=== PATIENT | female | born 1945 | race Caucasian/White ===

== ENCOUNTER 2017-04-09 15:04 | Inpatient (IN) | payer MEDICARE ==
[~2017-04-09] VITALS: Ht 170.2 cm; Wt 82.5 kg
[2017-04-09] VITALS (12 sets, daily range): BP systolic 128–168; BP diastolic 76–95; PULSE 56–72; RESP 16–18; TEMP 97.6–98.2; O2SAT 95–100
[~2017-04-09 15:04] MED LIST: ASPI81TA82 PO; ATOR10TA PO; CARB25TA PO; CARV6.252 PO; CHOL50006 PO; COEN400C PO; CYMB60CA PO; FOSA70TA PO; HYDR-3580 PO; POLY119S PO; RIVA10 PO; SYNT25TA PO; TAB-TAB PO; Z.0.COMMODE-3:1; Z.0.WALKERFRONT
[2017-04-09] MEDS ORDERED: SODIUM CHLORIDE 0.9% FLUSH 10 ML FLUSH IVF PRN (15:30)
--- NOTE | 2017-04-09 15:34 | PD ---
HPI Chief Complaint: Chest Pain Time Seen by Provider: 15:12 Travel History International Travel<30 days: No Contact w/Intl Traveler<30days: No History of Present Illness HPI 71yo F with PMH of CAD s/p cardiac stent, HTN presents to the ED with c/o worsening chest pain today. States she has intermittent chest pain for 1 month after exertion such as playing tennis or swimming. However, at around 11am today, she started having substernal chest pain that feels like a ball and it lasted longer than normal. Pain radiates to the mid back. States that she still felt a little chest pain even after she rested which is not normal for that. Denies any sob, nausea, diaphoresis, vomiting, abdominal pain, focal weakness or numbness. Pt's emd special education teacher is Dr. Galo and she called her office today and was told to come to the ED. Pt last had nuclear stress test maybe 3-4 years ago. Had cardiac cath by Dr. Salcido in 2006 that showed patent mid left anterior descending artery stent and 2 mid right coronary artery stents. PFSH Past Medical History Arthritis: No Anxiety: No Depression: Yes Heart Rhythm Problems: No Cancer: Yes (BCC) Cardiovascular Problems: Yes (HEART CATH - 3 STENTS) High Cholesterol: Yes Chest Pain: Yes Congestive Heart Failure: No Cerebrovascular Accident: No Coronary Artery Disease: Yes (STENTS) Diminished Hearing: No Endocrine: No Gastrointestinal Disorders: Yes (HX SPASMS) GERD: No Genitourinary: No Headaches: Yes (WITH NITRO PATCH) Hepatitis: No Hiatal Hernia: No Hypertension: Yes Immune Disorder: No Musculoskeletal: Yes (ARTHRITIS, PARKINSONS) Neurologic: Yes (POSS TIA) Psychiatric: No Reproductive: No Respiratory: No Migraines: No Seizures: No Thyroid Disease: Yes (HYPO) Ulcer: No Tubal Ligation: Yes Past Surgical History Abdominal Surgery: Yes (SANDY 2002) AICD: No Body Medical Devices: 3 CARDIAC STENTS, Cardiac Surgery: Yes (3 STENT PLACEMENT 04/01/07) Cholecystectomy: Yes (WITH ERCP AFTER) Coronary Stent: Yes (ANGIOPLASTY WITH 3 STENTS) Ear Surgery: No Endocrine Surgery: No Eye Surgery: No Genitourinary Surgery: Yes (TUBAL LIGATION) Gynecologic Surgery: No Joint Replacement: Yes Oral Surgery: No Pacemaker: No Thoracic Surgery: No Tonsillectomy: Yes Other Surgery: Yes Social History Alcohol Use: Yes (1-2 GLASSES OF WINE A NIGHT WITH DINNER) Tobacco Use: No Substance Use: No Allergies-Medications (Allergen,Severity, Reaction): Coded Allergies: meperidine (Unverified Allergy, Severe, VOMITING, 04/09/17) codeine (Verified Allergy, Intermediate, Vomiting, 04/09/17) Reported Meds & Prescriptions Reported Meds & Active Scripts Active Reported Amlodipine (Amlodipine Besylate) 2.5 Mg Tab 2.5 Mg PO DAILY Nitrostat SL (Nitroglycerin) 0.4 Mg Subl 0.4 Mg SL DIRECTED PRN 1 tablet under the tongue as needed for chest pain. Repeat every 5 minutes for a total of 3 DOSES or call 911 if NO relief. Levothyroxine (Levothyroxine Sodium) 25 Mcg Tab 25 Mcg PO DAILY Alprazolam 0.25 Mg Tab 0.25 Mg PO DAILY PRN Cymbalta DR (Duloxetine HCl) 60 Mg Capdr 60 Mg PO HS Carbidopa-Levodopa 25-100 Mg Tab 1 Tab PO HS Carbidopa-Levodopa 25-100 Mg Tab 2 Tab PO BID Bystolic (Nebivolol) 2.5 Mg Tab 2.5 Mg PO HS Nitro-Dur Patch 24 HR (Nitroglycerin) 0.4 Mg/Hr Patch 0.4 Mg T-DERMAL DAILY PRN Aspirin 81 (Aspirin) 81 Mg Tabdr 81 Mg PO DAILY Fosamax (Alendronate Sodium) 70 Mg Tab 70 Mg PO Q7D Review of Systems Except as stated in HPI: all other systems reviewed are Neg Physical Exam Narrative GENERAL: 71yo F not in distress. SKIN: Focused skin assessment warm/dry. HEAD: Atraumatic. Normocephalic. EYES: Pupils equal and round. No scleral icterus. No injection or drainage. ENT: No nasal bleeding or discharge. Mucous membranes pink and moist. NECK: Trachea midline. No JVD. CARDIOVASCULAR: Regular rate and rhythm. No murmur appreciated. RESPIRATORY: No accessory muscle use. Clear to auscultation. Breath sounds equal bilaterally. GASTROINTESTINAL: Abdomen soft, non-tender, nondistended. MUSCULOSKELETAL: No obvious deformities. No clubbing. No cyanosis. No edema. NEUROLOGICAL: Awake and alert. No obvious cranial nerve deficits. Motor grossly within normal limits. Normal speech. PSYCHIATRIC: Appropriate mood and affect; insight and judgment normal. Data Data Last Documented VS Vital Signs Date Time Temp Pulse Resp B/P (MAP) Pulse Ox O2 Delivery O2 Flow Rate FiO2 04/09/17 17:00 60 16 139/87 (104) 98 Room Air 04/09/17 16:30 2.00 04/09/17 15:15 97.6 Orders Orders Electrocardiogram (04/09/17:27) Basic Metabolic Panel (Bmp) (04/09/17:27) Complete Blood Count With Diff (04/09/17) Magnesium (Mg) (04/09/17:) Prothrombin Time / Inr (Pt) (04/09/17) Act Partial Throm Time (Ptt) (04/09/17) Troponin I (04/09/17) Chest, Single Ap (04/09/17) Ecg Monitoring (04/09/17) Bilateral Bp Monitoring (04/09/17:) Iv Access Insert/Monitor (04/09/17:) Oximetry (04/09/17) Oxygen Administration (04/09/17:) Sodium Chloride 0.9% Flush (Ns Flush) (04/09/17 15:30) Heparin Inj (Heparin Inj) (04/09/17 23:45) Heparin Inj (Heparin Inj) (04/09/17 23:45) Heparin-D5w 25,000 U/250 Ml (Heparin-D5w (04/09/17 17:45) Cbc No Diff, Includes Plts (04/12/17 06:00) Act Partial Throm Time (Ptt) (04/10/17 00:31) Admit Order (Ed Use Only) (04/09/17 17:49) Labs Laboratory Tests Test 04/09/17 15:15 White Blood Count 7.4 TH/MM3 Red Blood Count 4.35 MIL/MM3 Hemoglobin 14.0 GM/DL Hematocrit 40.5 % Mean Corpuscular Volume 92.9 FL Mean Corpuscular Hemoglobin 32.1 PG Mean Corpuscular Hemoglobin Concent 34.5 % Red Cell Distribution Width 11.6 % Platelet Count 187 TH/MM3 Mean Platelet Volume 8.7 FL Neutrophils (%) (Auto) 65.4 % Lymphocytes (%) (Auto) 25.3 % Monocytes (%) (Auto) 7.6 % Eosinophils (%) (Auto) 1.3 % Basophils (%) (Auto) 0.4 % Neutrophils # (Auto) 4.8 TH/MM3 Lymphocytes # (Auto) 1.9 TH/MM3 Monocytes # (Auto) 0.6 TH/MM3 Eosinophils # (Auto) 0.1 TH/MM3 Basophils # (Auto) 0.0 TH/MM3 CBC Comment DIFF FINAL Differential Comment Prothrombin Time 11.2 SEC Prothromb Time International Ratio 1.0 RATIO Activated Partial Thromboplast Time 26.4 SEC Blood Urea Nitrogen 21 MG/DL Creatinine 0.89 MG/DL Random Glucose 107 MG/DL Calcium Level 9.5 MG/DL Magnesium Level 2.2 MG/DL Sodium Level 139 MEQ/L Potassium Level 4.0 MEQ/L Chloride Level 105 MEQ/L Carbon Dioxide Level 27.1 MEQ/L Anion Gap 7 MEQ/L Estimat Glomerular Filtration Rate 63 ML/MIN Troponin I LESS THAN 0.02 NG/ML MDM Medical Decision Making Medical Screen Exam Complete: Yes Emergency Medical Condition: Yes Interpretation(s) EKG: NSR 62bpm. Normal axis. Q wave III. Mild ST depression V4-V6. Differential Diagnosis Unstable angina vs. NSTEMI vs. GERD Narrative Course 71yo F with CAD here with chest pain that is worst than normal with exertion and lasted longer even after resting today. History concerning for unstable angina. Pt took her aspirin today and currently chest pain free. Labs reviewed , no leukocytosis. Troponin negative. CXR negative. I initially discussed with pt's emd special education teacher Dr. Galo and at that time pt did not want a cardiac cath. However, after further discussion with patient, she is agreeable to it. I then discussed with Dr. Prado who is covering Dr. Baca and recommends starting heparin drip, NPO after midnight and transfer to [facility] for possible cardiac cath. Pt denies any GI bleed or black stool so heparin ordered. Discussed with Dr. Gasca who will come evaluate pt and she will be accepted under Dr. Rodriguez's service. Critical Care Narrative Aggregate critical care time was 45 minutes. Time to perform other separately billable procedures was not included in the critical care time. My time did not include minutes spent treating any other patients simultaneously or on activities that did not directly contribute to the patient's treatment. The services I provided to this patient were to treat and/or prevent clinically significant deterioration that could result in: cardiovascular collapse or . I provided critical care services requiring my management, as noted below: Chart data review, documentation time, medication orders and management, vital sign assessments/reviewing monitor data, ordering and reviewing lab tests, ordering and interpreting/reviewing x-rays and diagnostic studies, care of the patient and discussion of the patient with the admitting physicians. Diagnosis Primary Impression: Unstable angina Admitting Information Admitting Physician Requests: Toma Lara DO Apr 09, 2017 15:34
[2017-04-09 15:45] LABS: AUTOMATED NEUTROPHIL # 4.8 TH/MM3 (1.8-7.7); BASOPHIL % 0.4 % (0.0-2.0); EOSINOPHIL # 0.1 TH/MM3 (0-0.4); EOSINOPHIL % 1.3 % (0.0-4.0); HEMATOCRIT 40.5 % (35.0-46.0); HEMO FLAGS DIFF FINAL; LYMPH % 25.3 % (9.0-44.0); LYMPHOCYTE # 1.9 TH/MM3 (1.0-4.8); MEAN CELL VOLUME 92.9 FL (80.0-100.0); MEAN CORPUSCULAR HEMOGLOBIN 32.1 PG (27.0-34.0); MEAN CORPUSCULAR HGB CONC 34.5 % (32.0-36.0); MONO % 7.6 % (0.0-8.0); NEUT % 65.4 % (16.0-70.0); PLATELET COUNT 187 TH/MM3 (150-450); RED BLOOD COUNT 4.35 MIL/MM3 (4.00-5.30); RED CELL DISTRIBUTION WIDTH 11.6 % (11.6-17.2); WHITE BLOOD COUNT 7.4 TH/MM3 (4.0-11.0)
[2017-04-09 15:53] LABS: CHLORIDE 105 MEQ/L (98-107); SODIUM (NA) 139 MEQ/L (136-145)
[2017-04-09 15:56] LABS: ANION GAP 7 MEQ/L (5-15); BICARBONATE 27.1 MEQ/L (21.0-32.0); BLOOD UREA NITROGEN 21 MG/DL (7-18); MAGNESIUM 2.2 MG/DL (1.5-2.5)
[2017-04-09 15:57] LABS: APTT (PATIENT) 26.4 SEC (24.3-30.1); PROTHROMBIN TIME - PATIENT 11.2 SEC (9.8-11.6)
[2017-04-09 15:59] LABS: GLOMERULAR FILTRATION RATE 63 ML/MIN (>89)
--- NOTE | 2017-04-09 16:20 | RADRPT ---
EXAM DATE/TIME: 04/09/2017 15:45 [facility] COMPARISON: CHEST SINGLE AP, October 24, 2014, 22:48. INDICATIONS : Chest pain. MEDICAL HISTORY : None. SURGICAL HISTORY : None. ENCOUNTER: Initial ACUITY: 1 month PAIN SCORE: 5/10 LOCATION: Bilateral chest FINDINGS: A single view of the chest demonstrates the lungs to be symmetrically aerated without evidence of mas s, infiltrate or effusion. The cardiomediastinal contours are unremarkable. Osseous structures are intact. CONCLUSION: 1. No acute cardiopulmonary disease. William Thomas MD on April 09, 2017 at 16:18 Board Certified Radiologist. This report was verified electronically.
[2017-04-09] MEDS ORDERED: FOSA70TA PO (17:04)
[2017-04-09] MEDS ORDERED: BYST2.5T2 PO (17:04)
[2017-04-09] MEDS ORDERED: ALPR0.25 PO (17:04)
[2017-04-09] MEDS ORDERED: ASPI-110 PO (17:04)
[2017-04-09] MEDS ORDERED: CYMB60CA PO (17:04)
[2017-04-09] MEDS ORDERED: LEVO25TA4 PO (17:04)
[2017-04-09] MEDS ORDERED: NITR0.4D T-DERMAL (17:04)
[2017-04-09] MEDS ORDERED: CARB25TA9 PO ×2 (17:04)
[2017-04-09] MEDS ORDERED: NITR0.4S SL (17:05)
[2017-04-09] MEDS ORDERED: AMLO2.5T PO (17:06)
[2017-04-09] MEDS: HEPARIN-D5W 25,000 U/250 ML 250 ML IV PRN (18:06)
--- NOTE | 2017-04-09 18:25 | HHI.HP ---
HPI Service CP Hospitalists Primary Care Physician No Primary Care Physician Admission Diagnosis Unstable angina Chief Complaint: Chest pain with change in character/severity, sent in by her bag maker. Travel History International Travel<30 Days: No Contact w/Intl Traveler <30 Da: No Traveled to Known Affected Are: No History of Present Illness 71yo F with PMH of CAD s/p cardiac stenting approximately 10 years ago, HTN presents to the ED with c/o worsening chest pain today. States she has intermittent chest pain for 1-2 months after exertion such as playing tennis or swimming. However, at around 11am today, she started having substernal chest pain that feels like a ball and it lasted longer than normal. Pain radiates to the mid back. States that she still felt a little chest pain even after she rested which is not normal for her. Denies any sob, nausea, diaphoresis, vomiting, abdominal pain, focal weakness or numbness. Pt's bag maker is Dr. Galo and she called her office today and was told to come to the ED. patient reports she saw her bag maker approximately 2 weeks ago and they were trying to medically manage the chest pain. Pt last had nuclear stress test maybe 3-4 years ago. Had cardiac cath by Dr. Salcido in 2006 that showed patent mid left anterior descending artery stent and 2 mid right coronary artery stents. Patient is chest pain free presently. ER physician has discussed the case with Dr. Mal Prado who has given orders for heparin drip and transfer patient to the [facility] for anticipated cardiac catheterization tomorrow morning. It is noted the patient is led quite an active life despite her history of coronary disease. She reports that she walks 3 miles 3 days out of the week, swims several days per week and plays tennis 3 days per week. Review of Systems Constitutional: COMPLAINS OF: Diaphoretic episodes, DENIES: Fatigue, Fever, Weight gain, Weight loss, Chills, Dizziness, Change in appetite, Night Sweats Endocrine: DENIES: Abnorml menstrual pattern, Heat/cold intolerance, Polydipsia , Polyuria, Polyphagia Eyes: DENIES: Blurred vision, Diplopia, Eye inflammation, Eye pain, Vision loss , Photosensitivity, Double Vision Ears, nose, mouth, throat: DENIES: Tinnitus, Hearing loss, Vertigo, Nasal discharge, Oral lesions, Throat pain, Hoarseness, Ear Pain, Running Nose, Epistaxis, Sinus Pain, Toothache, Odynophagia Respiratory: DENIES: Apneas, Cough, Snoring, Wheezing, Hemoptysis, Sputum production, Shortness of breath Cardiovascular: COMPLAINS OF: Chest pain, Dyspnea on Exertion, DENIES: Palpitations, Syncope, PND, Lower Extremity Edema, Orthopnea, Claudication Gastrointestinal: DENIES: Abdominal pain, Black stools, Bloody stools, BRB per rectum, Constipation, Diarrhea, GERD, Nausea, Reflux, Vomiting, Difficulty Swallowing, Anorexia, See HPI Genitourinary: DENIES: Abnormal vaginal bleeding, Dysmenorrhea, Dyspareunia, Sexual dysfunction, Urinary frequency, Urinary incontinence, Urgency, Hematuria , Dysuria, Nocturia, Vaginal discharge Musculoskeletal: COMPLAINS OF: Joint pain Hematologic/lymphatic: DENIES: Bruising, Lymphadenopathy Immunologic/allergic: DENIES: Eczema, Urticaria Neurologic: DENIES: Abnormal gait, Headache, Localized weakness, Paresthesias, Seizures, Speech Problems, Tremor, Poor Balance Psychiatric: DENIES: Anxiety, Confusion, Mood changes, Depression, Hallucinations, Agitation, Suicidal Ideation, Homicidal Ideation, Delusions, History of Bipolar, History of Schizophrenia Past Family Social History Past Medical History Coronary artery disease Hyperlipidemia Hypertension Osteoarthritis Osteoporosis Movement disorder, questionable Parkinson's Hypothyroidism Past Surgical History Cholecystectomy Distant history of tonsillectomy and adenoidectomy Bilateral tubal ligation Left total hip replacement in 2013 Cardiac catheter with 3 stents placed in the approximately 2007 Reported Medications Xarelto 10 Mg Tab (Rivaroxaban) 10 Mg Tab 10 Mg PO Q24H Hydrocodone/Acetaminophen 7.5 mg/325 mg 1 Tab Tab 1 Tab PO Q4H PRN Walker Front Wheel (Walkerfront) Device 1 Unit Commode-3:1 Device 1 Unit Miralax 119 Gm Bottle (Polyethylene Glycol) 119 Gm Powd 17 Gm PO DAILY PRN 14 Days 17 GRAMS = 1 TABLESPOON DISSOLVED IN 4 TO 8 OUNCES OF BEVERAGE Vitamin D (Cholecalciferol) 5,000 Unit Tab 5,000 Unit PO DAILY Coq-10 (Coenzyme Q10) 400 Mg Cap 400 Mg PO TID Fosamax (Alendronate Sodium) 70 Mg Tab 70 Mg PO Q7D TAKE 30 MINUTES BEFORE THE MORNING MEAL, ONLY WATER Atorvastatin 10 mg (Atorvastatin Calcium) 10 Mg Tab 5 Mg PO HS 30 Days Carvedilol 6.25 mg (Carvedilol) 6.25 Mg Tab 1 Tab PO BID Aspir-81 (Aspirin) 81 Mg Tab 81 Mg PO DAILY Sinemet 25/100 (Carbidopa/Levodopa) 25 Mg/100 Mg Tab 1 Tab PO TID Multivitamin (Multivitamins) 1 Tab Tab 1 Tab PO DAILY Cymbalta (Duloxetine HCl) 60 Mg Cap 60 Mg PO DAILY Synthroid (Levothyroxine Sodium) 25 Mcg Tab 25 Mcg PO DAILY Allergies: Coded Allergies: meperidine (Unverified Allergy, Severe, VOMITING, 04/09/17) Family History Hyperlipidemia Coronary artery disease Social History No tobacco since her late 20s, prior to that smoked 2 packs per day for approximately 10 years Drinks one glass of red wine per night Denies illicit drug Lives with her of 26 years, this is her second marriage She has 4 adult children 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 Physical Exam Vital Signs Vital Signs Date Time Temp Pulse Resp B/P (MAP) Pulse Ox O2 Delivery O2 Flow Rate FiO2 04/09/17 17:00 60 16 139/87 (104) 98 Room Air 04/09/17 16:30 63 16 99 Nasal Cannula 2.00 04/09/17 16:00 62 16 128/76 (93) 100 Nasal Cannula 2.00 04/09/17 15:42 99 Nasal Cannula 2.00 04/09/17 15:42 16 99 Nasal Cannula 2.00 04/09/17 15:30 61 16 128/76 (93) 04/09/17 15:25 68 16 99 Room Air 04/09/17 15:15 97.6 70 16 141/87 (105) 99 Physical Exam GENERAL: This is a well-nourished, well-developed patient, in no apparent distress. Appears younger than her stated age. Somewhat athletic build. SKIN: No rashes, ecchymoses or lesions. Cool and dry. HEAD: Atraumatic. Normocephalic. No temporal or scalp tenderness. EYES: Pupils equal round and reactive. Extraocular motions intact. No scleral icterus. No injection or drainage. ENT: Nose without bleeding, purulent drainage or septal hematoma. Airway patent. NECK: Trachea midline. No JVD or lymphadenopathy. Supple, nontender, no meningeal signs. CARDIOVASCULAR: Regular rate and rhythm without murmurs, gallops, or rubs. RESPIRATORY: Clear to auscultation. Breath sounds equal bilaterally. No wheezes , rales, or rhonchi. GASTROINTESTINAL: Abdomen soft, non-tender, nondistended. No hepato-splenomegaly , or palpable masses. No guarding. Bowel sounds normal. MUSCULOSKELETAL: Extremities without clubbing, cyanosis, or edema. No joint tenderness, effusion, or edema noted. No calf tenderness. Negative Homans sign bilaterally. NEUROLOGICAL: Awake and alert. Cranial nerves II through XII intact. Motor and sensory grossly within normal limits. Five out of 5 muscle strength in all muscle groups. Normal speech. Laboratory Laboratory Tests Test 04/09/17 15:15 White Blood Count 7.4 Red Blood Count 4.35 Hemoglobin 14.0 Hematocrit 40.5 Mean Corpuscular Volume 92.9 Mean Corpuscular Hemoglobin 32.1 Mean Corpuscular Hemoglobin Concent 34.5 Red Cell Distribution Width 11.6 Platelet Count 187 Mean Platelet Volume 8.7 Neutrophils (%) (Auto) 65.4 Lymphocytes (%) (Auto) 25.3 Monocytes (%) (Auto) 7.6 Eosinophils (%) (Auto) 1.3 Basophils (%) (Auto) 0.4 Neutrophils # (Auto) 4.8 Lymphocytes # (Auto) 1.9 Monocytes # (Auto) 0.6 Eosinophils # (Auto) 0.1 Basophils # (Auto) 0.0 CBC Comment DIFF FINAL Differential Comment Prothrombin Time 11.2 Prothromb Time International Ratio 1.0 Activated Partial Thromboplast Time 26.4 Blood Urea Nitrogen 21 Creatinine 0.89 Random Glucose 107 Calcium Level 9.5 Magnesium Level 2.2 Sodium Level 139 Potassium Level 4.0 Chloride Level 105 Carbon Dioxide Level 27.1 Anion Gap 7 Estimat Glomerular Filtration Rate 63 Troponin I LESS THAN 0.02 Result Diagram: 04/09/17 1515 04/09/17 1515 Imaging Last Impressions Chest X-Ray 04/09/17 1527 Signed Impressions: Service Date/Time: Sunday, April 09, 2017 15:45 - CONCLUSION: 1. No acute cardiopulmonary disease. MD Leila Alegre VTE Risk Assessment Leila VTE Risk Assessment: Mod/High Risk (score >= 2) Isaelrini Risk Assessment Model Point Value = 1 Point Value = 2 Point Value = 3 Point Value = 5 Age 41-60 Minor surgery BMI > 25 kg/m2 Swollen legs Varicose veins or History of unexplained or recurrent spontaneous Oral contraceptives or hormone replacement Sepsis (< 1 month) Serious lung disease, including pneumonia (< 1 month) Abnormal pulmonary function Acute myocardial infarction Congestive heart failure (< 1 month) History of inflammatory bowel disease Medical patient at bed rest Age 61-74 Arthroscopic surgery Major open surgery (> 45 min) Laparoscopic surgery (> 45 min) Malignancy Confined to bed (> 72 hours) Immobilizing plaster cast Central venous access Age >= 75 History of VTE Family history of VTE Factor V Leiden Prothrombin [id number] Lupus anticoagulant Anticardiolipin antibodies Elevated serum homocysteine Heparin-induced thrombocytopenia Other congenital or acquired thrombophilia Stroke (< 1 month) Elective arthroplasty Hip, pelvis, or leg fracture Acute spinal cord injury (< 1 month) Prophylaxis Regimen Total Risk Factor Score Risk Level Prophylaxis Regimen 0-1 Low Early ambulation 2 Moderate Order ONE of the following: *Sequential Compression Device (SCD) *Heparin 5000 units SQ BID 3-4 Higher Order ONE of the following medications: *Heparin 5000 units SQ TID *Enoxaparin/Lovenox 40 mg SQ daily (WT < 150 kg, CrCl > 30 mL/min) *Enoxaparin/Lovenox 30 mg SQ daily (WT < 150 kg, CrCl > 10-29 mL/min) *Enoxaparin/Lovenox 30 mg SQ BID (WT < 150 kg, CrCl > 30 mL/min) AND/OR *Sequential Compression Device (SCD) 5 or more Highest Order ONE of the following medications: *Heparin 5000 units SQ TID (Preferred with Epidurals) *Enoxaparin/Lovenox 40 mg SQ daily (WT < 150 kg, CrCl > 30 mL/min) *Enoxaparin/Lovenox 30 mg SQ daily (WT < 150 kg, CrCl > 10-29 mL/min) *Enoxaparin/Lovenox 30 mg SQ BID (WT < 150 kg, CrCl > 30 mL/min) AND *Sequential Compression Device (SCD) Assessment and Plan Problem List: (1) Unstable angina ICD Codes: I20.0 - Unstable angina Status: Acute Plan: Heparin drip and other orders per Dr. Mal Prado. Plan cardiac catheter tomorrow. Patient chest pain-free presently. She will be transferred to the [facility]. (2) Coronary arteriosclerosis ICD Codes: I25.10 - Coronary arteriosclerosis Status: Acute Plan: As above. (3) Hypothyroidism ICD Codes: E03.9 - Hypothyroidism Status: Acute Plan: Continue medication. (4) Hypertension ICD Codes: I10 - Hypertension Status: Acute Plan: Fair control. Continue medication. Code Status Full Discussed Condition With Patient and ER physician. Physician Certification 2 Midnight Certification Type: Admission for Inpatient Services Order for Inpatient Services The services are ordered in accordance with Medicare regulations or non- Medicare payer requirements, as applicable. In the case of services not specified as inpatient-only, they are appropriately provided as inpatient services in accordance with the 2-midnight benchmark. Estimated LOS (days): 2 days is the estimated time the patient will need to remain in the hospital, assuming treatment plan goals are met and no additional complications. Post-Hospital Plan: Home Problem Qualifiers (1) Hypertension: Qualified Codes: I10 - Essential (primary) hypertension Fazal Gasca MD PhD Apr 09, 2017 18:25
[2017-04-09] MEDS ORDERED: ALPRAZolam 0.25 MG TAB PO PRN (18:30)
[2017-04-09] MEDS ORDERED: ALENDRONATE SODIUM 70 MG TAB PO SCH (18:30)
[2017-04-09] MEDS: DULoxetine HCl DR 60 MG CAP PO SCH (20:48)
[2017-04-09] MEDS: NEBIVOLOL 2.5 MG TAB PO SCH (20:48)
[2017-04-09] MEDS ORDERED: CARBIDOPA/LEVODOPA 25 MG/100 MG TAB PO SCH ×2 (21:00)
[2017-04-09] MEDS ORDERED: HEPARIN SODIUM - IV 10,000 UNITS/10 ML VIAL IV PUSH PRN ×2 (23:45)
[2017-04-10] VITALS (18 sets, daily range): BP systolic 122–141; BP diastolic 63–81; PULSE 48–72; RESP 18; TEMP 97–98.1; O2SAT 95–98
[2017-04-10] MEDS: LEVOTHYROXINE SODIUM 25 MCG TAB PO SCH (05:41)
--- NOTE | 2017-04-10 08:54 | HHI.PR ---
Subjective Remarks no cp now. was complaining of angina with exertion...relieved with rest Objective Vitals heart reg lung cta abd s/nt ext no edema Vital Signs Date Time Temp Pulse Resp B/P (MAP) Pulse Ox O2 Delivery O2 Flow Rate FiO2 04/10/17 06:00 51 04/10/17 05:00 55 04/10/17 04:00 48 04/10/17 03:00 97.7 59 18 130/76 (94) 98 04/10/17 03:00 49 04/10/17 02:00 54 04/10/17 01:00 54 04/10/17 00:00 56 04/09/17 23:00 57 04/09/17 23:00 97.6 56 18 149/88 (108) 98 04/09/17 22:00 60 04/09/17 22:00 97.8 58 18 168/95 (119) 96 04/09/17 21:57 56 04/09/17 21:05 04/09/17 20:45 62 18 141/84 (103) 96 Room Air 04/09/17 20:00 60 18 141/83 (102) 95 Room Air 04/09/17 19:00 98 Room Air 04/09/17 19:00 98.2 71 18 155/81 (105) 98 Room Air 04/09/17 18:15 72 16 159/91 (113) 98 Room Air 04/09/17 17:00 60 16 139/87 (104) 98 Room Air 04/09/17 16:30 63 16 99 Nasal Cannula 2.00 04/09/17 16:00 62 16 128/76 (93) 100 Nasal Cannula 2.00 04/09/17 15:42 99 Nasal Cannula 2.00 04/09/17 15:42 16 99 Nasal Cannula 2.00 04/09/17 15:30 61 16 128/76 (93) 04/09/17 15:25 68 16 99 Room Air 04/09/17 15:15 97.6 70 16 141/87 (105) 99 Result Diagram: 04/09/17 1515 04/09/17 1515 Imaging Last Impressions Chest X-Ray 04/09/17 1527 Signed Impressions: Service Date/Time: Sunday, April 09, 2017 15:45 - CONCLUSION: 1. No acute cardiopulmonary disease. William Thomas MD A/P Problem List: (1) Unstable angina ICD Codes: I20.0 - Unstable angina Status: Acute Plan: cad. 1 lad, 2 rca stents. last [facility] 2006 admitted with unstable angina heparin gtt asa not on bb. mendel. await cardiology decision for C> (2) Coronary arteriosclerosis ICD Codes: I25.10 - Coronary arteriosclerosis Status: Acute Plan: As above. (3) Hypothyroidism ICD Codes: E03.9 - Hypothyroidism Status: Chronic Plan: Continue medication. (4) Hypertension ICD Codes: I10 - Hypertension Status: Acute Plan: Fair control. Continue medication. (5) Parkinsons ICD Codes: G20 - Parkinson's disease Status: Chronic Plan: sinemet. Problem Qualifiers (1) Hypertension: Qualified Codes: I10 - Essential (primary) hypertension Patrick Rodriguez MD Apr 10, 2017 08:53
[2017-04-10] MEDS ORDERED: INFLUENZA VIRUS VACCINE (QUADRIVALENT) 0.5 ML SYR IM ONE (09:00)
[2017-04-10] MEDS: ASPIRIN EC 81 MG TABEC PO SCH (09:00)
[2017-04-10] MEDS ORDERED: PNEUMOCOCCAL POLYVALENT INJ 25 MCG/0.5 ML SYR IM ONE (09:00)
[2017-04-10] MEDS ORDERED: HEPARIN-NS/PF INJ 1,000 ML ONE (09:29)
[2017-04-10] MEDS ORDERED: MIDAZOLAM HCL 2 MG/2 ML VIAL ONE (09:29)
[2017-04-10] MEDS: amLODIPine BESYLATE 5 MG TAB PO SCH (10:00)
--- NOTE | 2017-04-10 10:44 | CATHPROC ---
[facility] HIS Report Study Information Study Number Admission Scheduled Start Study Start [id number] Apr 09 2017 5:52PM 04/10/2017 Apr 10 2017 9:38AM [place] Service Cardiac Catheterization Admit Source Facility Department Other [facility] - Switchgear Repairer Physician and Clinical Staff Initial Aquiles Kern Dye House Supervisor Min Fonseca RN Recorder Anastacio Lassiter,OUTPATIENT SERVICES DIRECTOR(BS) Scrub Sera Andrews,RT(R) Procedures Performed Procedure Location (Site) Vessel Name Coronary Angiograms RCA Right Coronary Equipment Time Urban Planner Description Size Mfg Part Number Used/Scraped TRANSDUCER, TRUWAVE [id number] 09:48 BREWER MONTANO * Used W/STOCKCOCK *[id number]- INTRODUCER SET, 09:49 [employer]. FR 5 SC-NT-U-SST Used MICROPUNCTURE, STIFFENED *[id number] *[id number] 09:48 [employer]irro IND[employer]RIES PACK, CCL CUSTOM * Used *[id number] 09:46 MEDTRONIC JR 4.0 DXTERITY CATHETER FR 5 [id number] Used [id number] 09:48 [employer] WIRE, 3MMJ .035 180CM 180CM Used *[id number] 09:48 NAMIC MANIFOLD, 4 PORT * Used *[id number] 09:48 NYCOMED OMNIPAQUE, 350 MG, 150ML 150ML [id number] Used [id number] 09:48 GAR[employer] BLANKET,WARM AIR CCL * Used *[id number] 09:49 TERUMO MEDICAL SHEATH, FR5 TERUMO (10CM) FR 5 Used *[id number] Equipment Model, Serial, Lot Number and Expiration Data Description Model Number Serial Number Lot Number Expiration Date JR 4.0 DXTERITY CATHETER [id number] 01-01-2020 History: Allergies Allergy Reaction meperidine VOMITING codeine Vomiting History: Risk Factors Family History of Hypertension Dyslipidemia Previous [place] Previous Heart Failure Premature CAD Yes Yes No No No Prior Valve Prior PCI Prior PCIDate Prior CABG Surgery No Yes 07/07/2006 No Cerebrovascular Peripheral Artery Chronic Lung On Dialysis Diabetes Disease Disease Disease No No No No No History: Symptoms/Diagnosis Selection Items Angina-unstable History: Other Current Smoker Method Quit Packs a Day Years Used Pack Years No Cigarettes 60 Years Ago 2 10 20 Labs Hgb (g/dl) Hct (%) WBC (l/cumm) Platelets (thousands) 11.60-17.00 35.00-51.00 4.00-11.00 150.00-450.00 14.0 40.5 7.4 187 Glucose (mg/dl) BUN (mg/dl) Creatinine (mg/dl) BUN:Creatinine (1:x) 74.00-106.00 7.00-18.00 0.50-1.30 10.00-20.00 107 21 0.8 26.3 Na (meq/l) K (meq/l) 136.00-145.00 3.50-5.10 139 4 INR (PTT:PT) 0.90-1.10 1 Troponin I (ng/ml) CPK-MB (ng/ML) 0.02-0.05 0.50-3.60 0.02 Not Drawn Medication Medication Total Dose (Bolus/Oral) Medication Total Dosage/Unit 1% XYLOCAINE 20 mL FENTANYL 25 mcg VERSED 0.5 mg Medications (Bolus/Oral) Medication Time Given Dosage/Unit Administered By Reason 1% XYLOCAINE 04/10/2017 9:55:43 AM 20 mL Aquiles Escamilla 20 mL 1% XYLOCAINE given in lab by Aquiles Escamilla in Right Groin via Subcutaneous. Ordered by Aquiles Tavarez. VERSED 04/10/2017 9:57:38 AM 0.5 mg Min Fonseca 0.5 mg VERSED given in lab by Min Fonseca RN via Peripheral IV. Ordered by Aquiles Escamilla. FENTANYL 04/10/2017 10:26:09 AM 25 mcg Min Fonseca 25 mcg FENTANYL given in lab by Min Fonseca RN via Peripheral IV. Ordered by Aquiles Escamilla. Medication (Drip) Medication Time Given Dosage/Unit Concentration/Unit Diluent (ml) Solution IV Solutions 04/10/2017 9:38:30 AM 0 mL (IV) 500 NaCl .9 Patient arrived on IV Solutions in Left Antecubital via Peripheral IV. Pump/Drip Flow = 20 ml/hr usin g NaCl .9. Ordered by Aquiles Escamilla. Initial Case Assessment Cardiovascular HR Rhythm NIBP Chest Pain 57 SINUS EDVIN 159/89 0 Edema Present Skin color Skin None Normal Warm Dry Circulatory - Right Pulses Dorsalis Pedis Femoral 2 2 Scale (0,1,2,3,4,d) Circulatory - Left Pulses Dorsalis Pedis Femoral 2 2 Scale (0,1,2,3,4,d) Circulatory - Lower Extremities Color Lower Right Color Lower Left Normal Normal Neurological State Oriented to time-place- Alert Moves all extremities person Respiration - General Respiration Rate SpO2 (%) (B/min) 22 96 Chronological Log Time Study Chronological Log 9:30:00 Pre-op and post- op instructions given; patient acknowledges understanding of instructions. 9:30:00 Patient arrived via Bed. 9:30:00 Patient Name, D.O.B, / Armband Verified By R.N. Vitals capture started with the following parameters, Patient=Adult, Interval=5 min, Initial Pr liqeme=607 mmHg, 9:37:58 Deflation Rate=5 mmHg, Cuff placed on Right Arm 9:38:02 Reference ECG taken 9:38:08 Consent signed by the physician and the patient and verified by the Switchgear Repairer staff. 9:38:09 Verbal Stimulation=2 Physical Stimulation=2 Airway=2 Respiration=2 TOTAL=8. (0=absent, 1=li mited, 2=present) 9:38:21 Patient has been NPO for More than 6Hrs. 9:38:22 Skin Breakdown- 9:38:23 Patient Warmer Placed on the Table. 9:38:29 A # 20 IV was noted in the Antecubital (left). Grade = 0 Patient arrived on IV Solutions in Left Antecubital via Peripheral IV. Pump/Drip Flow = 20 ml/h r using NaCl .9. Ordered 9:38:30 by Aquiles Escamilla. 9:38:31 History and physical on the chart or being dictated. Assessment: Initial Case, HR=57 BPM, Rhythm=SINUS EDVIN, XZFW=963/89 mmhg, Chest Pain=0, Edema= None, Color=Normal, Skin = Warm, Dry Right Pulses: Wang Ped=2, Femoral=2 Left Pulses: Wang Ped=2, Femoral=2 9:38:33 Lower Right Extremities: Color=Normal Lower Left Extremities: Color=Normal Neurological: State=Alert, Ox3, LAINEZ Respiration: Resp=22 B/min, SpO2=96 % 9:39:36 HR=56 bpm, UNME=015/88 mmhg, SpO2=97.0 %, Resp=13 B/min, Pain=0, Denisse=10, Heart=2 9:43:56 Right groin prepped with 2% chlorhexidine, and draped after a 3 min. waiting time. 9:43:59 MD arrived. 9:44:39 HR=58 bpm, HVLK=862/89 mmhg, SpO2=97.0 %, Resp=16 B/min, Pain=0, Denisse=10, Heart=2 9:49:38 HR=58 bpm, ZQHG=909/89 mmhg, SpO2=98.0 %, Resp=24 B/min, Pain=0, Denisse=10, Heart=2 9:49:38 Pressure channel 1 zeroed. 9:54:35 HR=56 bpm, LAGM=853/86 mmhg, SpO2=96.0 %, Resp=28 B/min, Pain=0, Denisse=10, Heart=2 Time Out. Correct patient, correct procedure, correct physician, power injector not loaded with contrast with surgical 9:55:10 team present. Time Out Concurred by MD and individual staff in procedure. 9:55:12 Case Start 9:55:43 20 mL 1% XYLOCAINE given in lab by Aquiles Escamilla in Right Groin via Subcutaneous. Ordere d by Aquiles Escamilla. 9:55:52 Access site was Right Femoral Artery. A INTRODUCER SET, MICROPUNCTURE, STIFFENED FR 5 was advanced into the Fem Art (right) using the 9:55:58 Percutaneous technique. A SHEATH, FR5 TERUMO (10CM) FR 5 was exchanged in the Fem Art (right). This was necessary in or jaswinder to 9:56:04 accomodate a larger catheter. 9:57:38 0.5 mg VERSED given in lab by Min Fonseca, RN via Peripheral IV. Ordered by Vin Escamilla. Recorded Pressure: Ao, HR=56, Condition=Condition 1 9:58:47 (Aorta) Ao 159/76/108 9:59:01 An injection in the Fem Art (right) was made through the SHEATH, FR5 TERUMO (10CM) FR 5. 9:59:38 HR=58 bpm, IJGB=588/82 mmhg, SpO2=94.0 %, Resp=15 B/min, Pain=0, Denisse=10, Heart=2 A JR 4.0 DXTERITY CATHETER FR 5 was advanced over a wire. OMNIPAQUE, 350 MG, 150ML 150ML was us ed for 9:59:57 injections. 10:00:04 The RCA was injected and visualized at various angles. OMNIPAQUE, 350 MG, 150ML 150ML used . 10:04:35 HR=59 bpm, ONLJ=327/93 mmhg, SpO2=95.0 %, Resp=12 B/min, Pain=0, Denisse=10, Heart=2 After removing the current catheter a JL 4.0 INFINITI CATHETER FR 5 was advanced over a WIRE, 3 MMJ .035 180CM 10:05:04 180CM. 10:09:40 HR=62 bpm, LOMX=180/87 mmhg, SpO2=97.0 %, Resp=11 B/min, Pain=0, Denisse=10, Heart=2 After removing the current catheter a JR 4.0 DXTERITY CATHETER FR 5 was advanced over a WIRE, 3 MMJ .035 180CM 10:11:51 180CM. Recorded Pressure: LV, HR=65, Condition=Condition 1 10:12:58 (Left Ventricle) LV 167/7/18 Recorded Pressure: LV, Ao, HR=62, Condition=Condition 1 10:13:08 (Left Ventricle) LV 163/7/17, (Aorta) Ao 162/79/113 10:13:38 Catheter was removed 10:14:39 HR=62 bpm, VDRS=015/87 mmhg, SpO2=97.0 %, Resp=23 B/min, Pain=0, Denisse=10, Heart=2 10:16:22 Case End 10:17:03 Activated Clotting Time Drawn 10:17:08 ACT (Normal Range 90-180) = 138 10:19:36 HR=56 bpm, YYAG=711/83 mmhg, SpO2=95.0 %, Resp=9 B/min, Heart=2 10:24:39 HR=52 bpm, XHIA=449/82 mmhg, SpO2=97.0 %, Resp=20 B/min, Heart=2 10:25:05 Sheath removed; pressure applied to access site. 10:25:14 No case complications noted. 10:25:16 Cine recording checked. 10:26:09 25 mcg FENTANYL given in lab by Min Fonseca, RN via Peripheral IV. Ordered by Aquiles Escamilla. 10:29:43 HR=57 bpm, UJGG=842/75 mmhg, SpO2=96.0 %, Resp=22 B/min, Heart=2 10:34:42 HR=55 bpm, AUTP=420/81 mmhg, SpO2=93.0 %, Resp=18 B/min, Heart=2 10:39:10 Sterile dressing applied to site 10:39:13 No case complications noted. 10:39:15 Cine recording checked. 10:39:19 Bedside Report will be given. 10:39:39 HR=57 bpm, INXQ=358/83 mmhg, SpO2=95.0 %, Resp=3 B/min, Heart=2 10:43:15 Patient moved to stretcher 10:43:52 Vitals capture stopped. End Study - Contrast Media Used In Study Contrast Total Opened (mL) Total Used (mL) Total Wasted (mL) Omnipaque 45 45 0 End Study - Maximum Contrast Load Max Contrast Load (mL) 493.8 End Study - Radiation Exposure Fluoro Time (minutes) 2.9 End Study - Patient Disposition Complications Transferred To No Telemetry Bed
[2017-04-10] MEDS: CARBIDOPA/LEVODOPA 25 MG/100 MG TAB PO SCH ×4 (11:35→21:47)
--- NOTE | 2017-04-10 14:15 | EKG ---
Date Performed: 04/09/2017 Time Performed: 15:11:43 PTAGE: 71 years EKG: Sinus rhythm NORMAL ECG INTERPRETATION BASED ON A DEFAULT AGE OF 42 YEARS PREVIOUS TRACING 07/13/15 Compared to prior tracing no significant change DOCTOR: Rafael Grover Interpretating Date/Time 04/10/2017 14:13:27
--- NOTE | 2017-04-10 14:15 | EKG ---
Date Performed: 04/09/2017 Time Performed: 23:39:26 PTAGE: 71 years EKG: Sinus bradycardia Normal ECG except for rate PREVIOUS TRACING : 04/09/2017 15.11 Since prior tracing, sinus rate is slightly slower. DOCTOR: Rafael Grover Interpretating Date/Time 04/10/2017 14:13:41
--- NOTE | 2017-04-10 14:15 | EKG ---
Date Performed: 04/10/2017 Time Performed: 05:38:18 PTAGE: 71 years EKG: Sinus bradycardia with borderline 1st degree A-V block Borderline ECG PREVIOUS TRACING : 04/09/2017 23.39 Since prior tracing, sinus rate is slightly slower. ME inte rval is slightly longer. DOCTOR: Rafael Grover Interpretating Date/Time 04/10/2017 14:14:11
--- NOTE | 2017-04-10 15:03 | ECHRPT ---
Indication: Chest Pain CONCLUSIONS Normal left ventricular size. Wall thickness is normal. No regional wall motion abnormalities are present. Mild thickening of the mitral valve leaflets. Trace mitral valve regurgitation. There is mild tricuspid valve regurgitation. The estimated pulmonary arterial pressure is 30 mmHg. The pulmonary valve is not well visualized. BP: 129 / 80 HR: 58 Rhythm: Sinus Technical Quality:Good FINDINGS LEFT VENTRICLE The left ventricular systolic function is normal with an estimated ejection fraction in the range of 60-65%. Normal left ventricular size. Wall thickness is normal. No regional wall motion abnormalities are present. RIGHT VENTRICLE Normal right ventricular size and systolic function. LEFT ATRIUM The left atrial size is normal. RIGHT ATRIUM The right atrial size is normal. ATRIAL SEPTUM Normal atrial septal thickness without atrial level shunting by limited color doppler interrogation. AORTA The aortic root and proximal ascending aorta are normal in size on limited imaging. MITRAL VALVE Mild thickening of the mitral valve leaflets. Trace mitral valve regurgitation. AORTIC VALVE Trileaflet aortic valve. No aortic valve stenosis or regurgitation. TRICUSPID VALVE There is mild tricuspid valve regurgitation. The estimated pulmonary arterial pressure is 30 mmHg. PULMONARY VALVE The pulmonary valve is not well visualized. VESSELS The inferior vena cava is normal in size. PERICARDIUM No pericardial effusion. Brenton cAe MD, FACC (Electronically Signed) Final Date:10 April 2017 15:02
[2017-04-10] MEDS ORDERED: SODIUM CHLORIDE 0.9% FLUSH 10 ML FLUSH IV FLUSH PRN (16:45)
[2017-04-10] MEDS ORDERED: CHLORHEXIDINE GLUCONATE 4% SOLN 120 ML BTL TOPICAL SCH (16:45)
[2017-04-10] MEDS ORDERED: ceFAZolin 2 GM PREMIX 50 ML IV SCH (16:45)
[2017-04-10] MEDS ORDERED: INSULIN REGULAR (IV INFUSION) 100 UNITS in SODIUM CHLORIDE 0.9% INJ 99 ML IV PRN (16:45)
[2017-04-10] MEDS ORDERED: PAPAVERINE INJ 60 MG, NITROGLYCERIN INJ 100 MCG, DILTIAZEM INJ 100 MG in SODIUM CHLORID... IRRIGATION SCH (16:45)
[2017-04-10] MEDS ORDERED: METOPROLOL TARTRATE 25 MG TAB PO SCH (16:45)
[2017-04-10] MEDS ORDERED: CEFAZOLIN INJ 500 MG in SODIUM CHLORIDE 0.9% IRR BTL 500 ML IRRIGATION SCH (16:45)
--- NOTE | 2017-04-10 16:54 | PD.CAR.PN ---
CVT Progress Note Subjective/Hospital Course: sts data discussed with pt RISK SCORES About the STS Risk Calculator Procedure: CAB Only Risk of Mortality: 0.711% Morbidity or Mortality: 6.568% Long Length of Stay: 2.295% Short Length of Stay: 61.676% Permanent Stroke: 0.55% Prolonged Ventilation: 4.267% DSW Infection: 0.175% Renal Failure: 1.038% Reoperation: 3.008% Objective: Vital Signs Date Time Temp Pulse Resp B/P (MAP) Pulse Ox O2 Delivery O2 Flow Rate FiO2 04/10/17 15:00 52 04/10/17 14:00 58 04/10/17 13:00 51 04/10/17 12:00 51 04/10/17 08:00 56 04/10/17 08:00 97.0 57 18 141/81 (101) 97 04/10/17 06:00 51 04/10/17 05:00 55 04/10/17 04:00 48 04/10/17 03:00 97.7 59 18 130/76 (94) 98 04/10/17 03:00 49 04/10/17 02:00 54 04/10/17 01:00 54 04/10/17 00:00 56 04/09/17 23:00 57 04/09/17 23:00 97.6 56 18 149/88 (108) 98 04/09/17 22:00 60 04/09/17 22:00 97.8 58 18 168/95 (119) 96 04/09/17 21:57 56 04/09/17 21:05 04/09/17 20:45 62 18 141/84 (103) 96 Room Air 04/09/17 20:00 60 18 141/83 (102) 95 Room Air 04/09/17 19:00 98 Room Air 04/09/17 19:00 98.2 71 18 155/81 (105) 98 Room Air 04/09/17 18:15 72 16 159/91 (113) 98 Room Air 04/09/17 17:00 60 16 139/87 (104) 98 Room Air Result Diagram: 04/09/17 1515 04/09/17 1515 [facility] Apr 10, 2017 16:54
[2017-04-10] MEDS ORDERED: IOHEXOL 350 MG/ML 50 ML BTL (for Cath Lab) OTHER ONE (17:27)
--- NOTE | 2017-04-10 17:36 | MB ---
cc: CARLA GARCIA DATE OF CONSULTATION 04/10/17 HISTORY OF PRESENT ILLNESS A 71-year-old female, patient of Dr. Cleopatra Batista, Dr. Ivey who presented to the emergency department with chest pain she has been having intermittently for the last 1-2 months after exertion such as playing tennis or swimming. On the day of admission, she had some substernal chest pain that felt like it lasted longer than normal, radiating to her mid-back and the pain was even after she rested. She called Dr. Ivey and the office old her to come into the emergency room. She denied any shortness of breath, nausea, diaphoresis, vomiting. She did see the clinical business analyst two weeks ago and they were trying to manage it medically. She had a nuclear stress test about 3-4 years ago. She has history of coronary artery disease and has had three stents placed in the past by Dr. Salcido in 2006, a stent to the mid LAD and two stents to the right coronary artery. She was then placed on a heparin drip and apparently then transferred from the [facility] to our facility and underwent cardiac cath by Dr. Escamilla which showed left main disease at 10%, proximal LAD 90%, mid distal 80%, diagonal 50%, the circ 20%, the OM 80%, the RCA 90%. The 2-D echo is pending to evaluate her EF. She apparently does walk three miles three days a week, also swims several days a week and plays tennis. three days a week. Her echo apparently was completed which showed an EF of 60-65%, some trace mitral regurgitation. No aortic valve stenosis or regurgitation, some mild tricuspid regurgitation and pulmonary artery pressures of 30. PAST MEDICAL HISTORY 1. coronary artery disease, 2. Hyperlipidemia, 3. Hypertension, 4. Osteoarthritis, 5. Osteoporosis 6. Possible Parkinson's, however, she has been treated with Sinemet which improved her symptoms. She prior to that was having tremors and being unbalanced and fatigued. She is followed by Dr. Covarrubias. 7. Hypothyroidism. PAST SURGICAL HISTORY 1. Cholecystectomy, 2. Tonsillectomy/Adenoidectomy, 3. Bilateral tubal ligation 4. Left total hip replacement in 2013 5. Cardiac cath with three stents in 2006 ALLERGIES CODEINE DEMEROL INTOLERANT TO STATINS DUE TO MYOPATHY which will be added to our allergy list. MEDICATIONS Home include, 1. Nitro patch. 2. Nitro sublingual p.r.n. 3. Bystolic 2.5 daily. 4. Amlodipine 2.5 daily. 5. Aspirin 81. 6. Cymbalta 60 mg p.o. q.h.s. 7. Xanax p.r.n. for anxiety 8. Sinemet 25/100 two p.o. b.i.d. and then she takes 1 tablet at night. 9. Levothyroxine 25 mcg daily. 10. Fosamax 70 mg p.o. q. 7 days. FAMILY HISTORY Mother after having coronary artery bypass graft at age 77. Father at 55 from [place]. Her brother had his first CA in his 40s and then bypass at 50, still alive. Maternal grandparents from heart disease. SOCIAL HISTORY She smoked for about 10 years, two packs a day, quit 40 years ago. Drinks one glass of wine per night. No illicit drugs. Lives with her of 26 years. This is her second marriage. She has two of her own children, two stepchildren, nine grandchildren. 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 REVIEW OF SYSTEMS GENERAL: No night sweats, fever, heat and cold intolerance. SKIN: No psoriasis, itching or hives. HEENT: No blurred vision, hearing loss. RESPIRATORY: No cough, shortness of breath. CARDIOVASCULAR: As above in the HPI. GASTROINTESTINAL: No diarrhea, vomiting. GENITOURINARY: No burning frequency, urgency ADDICTION SOCIAL WORKER: No history of TIA, CVA, seizure disorder. ENDOCRINOLOGY: Positive for hypothyroidism. PHYSICAL EXAMINATION VITAL SIGNS: Blood pressure 140/80, heart rate of 58, temperature max 97, O2 sat 97 on room air. GENERAL: Patient is awake, alert in no acute distress. HEENT: Head is normocephalic, atraumatic. Pupils equal and reactive. Oral mucosa pink, moist. NECK: Supple. No JVD. CARDIAC: Heart sounds S1-S2, regular rate and rhythm. No rubs, murmurs, gallops. LUNGS: Clear to auscultation. No wheezes, rales or rhonchi. ABDOMEN: Soft, nontender. No masses or organomegaly. EXTREMITIES: No cyanosis, clubbing or edema. She has some chronic venous changes she says from the sun to her lower extremities. She does have some different stages of some bruising on her arms which she does take aspirin. NEUROLOGIC: Alert and oriented times four. No focal deficits. LABORATORY FINDINGS Hemoglobin 14, hematocrit of 40, white cell count 7.4, platelet count 187. Sodium 139, potassium 4.0, BUN of 21, creatinine 0.89, troponin less than 0.02 x2. INR 1.0. IMAGING STUDIES Chest x-ray with no acute process. CARDIOLOGY STUDIES EKG shows sinus bradycardia with no acute changes. IMPRESSION This is a very pleasant female, 71-year-old patient of Dr. Cleopatra Espinosa, Dr. Ivey, Dr. Escamilla with unstable angina, underwent cardiac cath with four-vessel disease. Procedures, alternatives and risks have been discussed by Dr. Carla Garcia. The patient is agreeable to proceed. The patient will be scheduled for Friday, April 14. Procedures as well as STS data will be discussed with the patient and documented in the electronic record. In the meantime, we will add the statin as her allergy since she has significant myopathies. She said she recently started on Rapitha injections for the cholesterol. Further workup is pending and the plan again will be for Friday. Dictated by SEBASTIEN Kurtz MD [facility] [place]/ /4:30 PM /8:23 AM
--- NOTE | 2017-04-10 20:50 | RADRPT ---
EXAM DATE/TIME: 04/10/2017 17:36 [facility] COMPARISON: No previous studies available for comparison. INDICATIONS : PreOp cardiac sugrery. MEDICAL HISTORY : Hypothyroidism. Parkinson's. Hypertension. Headache. Chest pain. Hypercholestrolemia. Anxiety. Depres nola. Skin cancer. SURGICAL HISTORY : Tonsillectomy. Angioplasty. Cholecystectomy. Cardiac stents. Tubal ligation. Left hip replacement. ENCOUNTER: Initial ACUITY: 1 day PAIN SCORE: 0/10 LOCATION: Bilateral neck PEAK SYSTOLIC VELOCITIES (cm/sec): ICA/CCA RATIO: Right: 1.8 Left: 1.7 ICA: Right: 111 Left: 102 CCA: Right: 61 Left: 60 ECA: Right: 72 Left: 74 VERTEBRAL: Right: 48 antegrade Left: 69 antegrade Elevated flow velocities and ICA/CCA ratios have been found to correlate with increased degrees of vessel stenosis, calculated as percentage of diameter relative to a normal segment of distal ICA/CCA FINDINGS: RIGHT CAROTID: There is mild plaque at the carotid bulb region. No significant stenosis is visualized. The waveform s are within normal limits. LEFT CAROTID: There is minimal plaque at the carotid bulb region. No significant stenosis is visualized. The wavef orms are within normal limits. VERTEBRAL ARTERIES: Antegrade flow is seen in both vertebral arteries. MISCELLANEOUS: None. CONCLUSION: Plaque at the carotid bulb regions without a hemodynamically significant stenosis. Clarence Jim MD on April 10, 2017 at 20:45 Board Certified Radiologist. This report was verified electronically.
[2017-04-10 21:00] LABS: BLOOD, URINE NEG (NEG); GLUCOSE,URINE NEG (NEG); KETONE, URINE TRACE mg/dL (NEG); NITRITE,URINE NEG (NEG); PH, URINE 6.5 (5.0-8.5); URINE COLOR LIGHT-YELLOW (YELLW/STRAW)
[2017-04-10 21:01] LABS: COMMENT (UR) CULT NOT INDICATED; CULTURE IF INDICATED CULT NOT INDICATED
--- NOTE | 2017-04-10 21:31 | RADRPT ---
EXAM DATE/TIME: 04/10/2017 17:51 [facility] COMPARISON: No previous studies available for comparison. INDICATIONS : PreOp cardiac surgery. MEDICAL HISTORY : Hypertension. Hypothyroidism. Parkinson's. Headache. Chest pain. Hypercholestrolemia. Anxiety. Depres nola. Skin cancer. SURGICAL HISTORY : Tonsillectomy. Angioplasty. Cholecystectomy. Cardiac stents. Tubal ligation. Left hip replacement. ENCOUNTER: Initial ACUITY: 1 day PAIN SCORE: 0/10 LOCATION: Bilateral legs. GREATER SAPHENOUS VEIN THIGH: PROXIMAL: Right 4 mm Left 5 mm MID: Right 2 mm Left 3 mm DISTAL: Right 2 mm Left 2 mm CALF: PROXIMAL: Right 1 mm Left 2 mm MID: Right 1 mm Left 1 mm DISTAL: Right 1 mm Left 2 mm FINDINGS: The venous system of the lower extremities are patent by color Doppler imaging. Measurements of the leg veins (in mm) are listed above. CONCLUSION: Venous mapping as delineated above. Clarence Jim MD on April 10, 2017 at 21:29 Board Certified Radiologist. This report was verified electronically.
--- NOTE | 2017-04-10 21:31 | RADRPT ---
EXAM DATE/TIME: 04/10/2017 17:51 [facility] COMPARISON: No previous studies available for comparison. INDICATIONS : PreOp cardiac surgery. MEDICAL HISTORY : Hypertension. Hypothyroidism. Parkinson's. Headache. Chest pain. Hypercholestrolemia. Anxiety. Depres nola. Skin cancer. SURGICAL HISTORY : Tonsillectomy.Cholecystectomy. Angioplasty.Cardiac stents. Tubal ligation. Left hip replacement. ENCOUNTER: Initial ACUITY: 1 day PAIN SCORE: 0/10 LOCATION: Bilateral legs. TECHNIQUE: Venous ultrasound of the left and right leg was performed from the inguinal ligament to the proximal calf. Real-time, color Doppler and spectral tracing, compression and augmentation techniques were us ed. FINDINGS: RIGHT LEG: There is normal compressibility of the deep venous system from the inguinal region to the proximal ca lf. No echogenic clot is seen in the lumen of the common femoral, femoral, popliteal, and posterior tibial veins. There is a normal response of the venous system to proximal and distal augmentation an d respiration. LEFT LEG: There is normal compressibility of the deep venous system from the inguinal region to the proximal ca lf. No echogenic clot is seen in the lumen of the common femoral, femoral, popliteal, and posterior tibial veins. There is a normal response of the venous system to proximal and distal augmentation an d respiration. CONCLUSION: No DVT. Clarence Jim MD on April 10, 2017 at 21:28 Board Certified Radiologist. This report was verified electronically.
[2017-04-10] MEDS: NEBIVOLOL 2.5 MG TAB PO SCH (21:47)
[2017-04-10] MEDS: SODIUM CHLORIDE 0.9% FLUSH 10 ML FLUSH IV FLUSH SCH (21:47)
[2017-04-10] MEDS: DULoxetine HCl DR 60 MG CAP PO SCH (21:53)
--- NOTE | 2017-04-10 22:06 | MA ---
cc: AQUILES HUNTER DO DATE OF PROCEDURE 04/10/17 PROCEDURE Left heart catheterization, coronary angiogram, moderate sedation 20 minutes. PREPROCEDURE DIAGNOSIS Unstable angina, history of coronary artery disease. POSTPROCEDURE DIAGNOSIS Multivessel coronary artery disease for possible coronary artery bypass grafting. MEDICATIONS 1. Versed 0.5 milligrams. 2. Fentanyl 25 micrograms. CONTRAST USED 45 cc. FLUOROSCOPY 2.9 minutes. MODERATE SEDATION 20 minutes. ESTIMATED BLOOD LOSS 10 cc. PROCEDURAL SUMMARY Analy Vera is a pleasant 71-year-old female who is known to my partner, Dr. Ivey, who presented to [facility] due to unstable angina. Because of this she was recommended cardiac catheterization. Risks, benefits and alternatives were explained to her and she consented as such. She was brought to the lab and prepped in the usual sterile fashion. Right femoral artery was accessed using a modified Seldinger technique and placement of a 5-Hebrew sheath. This was easily aspirated and flushed. A JR-4 was advanced over a J-wire to the ascending aorta and across the aortic valve for measurement of left ventricular pressure. This was pulled back across the aortic valve showing no significant gradient of aortic stenosis. JR-4 was used for selective angiography of the right coronary artery. This was exchanged out for a JL-4 which was used for selective angiography of the left coronary artery. JL-4 was removed over a J-wire. ACT was checked and in an appropriate range and so sheath was pulled. Pressure was held for hemostasis. The patient left the cardiovascular lab director cardiovascularly stable. FINDINGS Left main normal size vessel with adequate reflux and no significant disease. It bifurcates into an LAD and circumflex. LAD, normal-size vessel with the proximal to midportion having a 90% stenosis. Distal to this, in the mid-portion of the LAD there is a stent that is widely patent. In the ccg-bw-mhhiid portion of the LAD there is an 80% stenosis. LAD gives off one diagonal with a 60-70% stenosis but is overall a small vessel. Left circumflex, normal-size vessel with an 80% stenosis in the midportion. The first obtuse marginal has tandem lesions of 80%. RCA, normal-size vessel with two stents noted in the midportion and in-stent restenosis of 95%. Distal to this there is a 50% stenosis. LVEDP 17. IMPRESSION 1. Unstable angina. 2. Hypertension. 3. Hyperlipidemia. 4. Multivessel coronary artery disease by cardiac catheterization for consideration of coronary artery bypass grafting. RECOMMENDATIONS 1. Ms. Vera presented with unstable angina, was found to have multivessel disease. Because of this she will be recommended coronary artery bypass grafting. This was discussed with Dr. Garcia who will review the case. 2. Because of her unstable angina we will plan on restarting her heparin drip 8 hours after sheath removal. 3. We will check a 2-D echo to look at her overall left ventricular function, cardiac structure and possible vulvopathies. 4. Further recommendations after CT surgery evaluation. Thank you for allowing me to see Analy Vera. If there are any questions please do not hesitate to call. Aquiles Hunter DO VGP/EO /9:02 PM /9:53 PM MTDZenon
--- NOTE | 2017-04-10 22:06 | MB ---
cc: AQUILES HUNTER DO DATE OF CONSULTATION 04/10/17 REASON FOR CONSULTATION Unstable angina. HISTORY OF PRESENT ILLNESS Analy Vera is a pleasant 71-year-old female known to my partner, Dr. Ivey, who presented to [facility] emergency room on April 09, 2017 due to worsening chest pain. She states that she has had intermittent chest pain for the past 1-2 months, especially on exertion. She gets this during tennis or swimming. When this first started, it would normally go away after a few minutes, but the pain started getting worse and worse. Yesterday before arriving to the emergency room, she had chest pain that felt like a ball underneath her chest and lasted longer than normal. Pain continued even after she rested. She denies shortness of breath, nausea, vomiting or diaphoresis. She called the office and was instructed to come to the emergency room. Dr. Ivey has been trying to increase her anti-anginal medications, but she continued to have pain in the outpatient setting. On arrival, she was started on a heparin drip. In seeing her, she is currently resting in bed without chest pain. PAST MEDICAL HISTORY 1. Coronary artery disease 2. Hyperlipidemia 3. Hypertension 4. Osteoarthritis 5. Osteoporosis. 6. Parkinson's. 7. Hypothyroidism PAST SURGICAL HISTORY 1. Cardiac catheterization (May 15, 2007) left main normal. LAD has a stent in the mid portion which is widely patent. LAD has four tiny diagonals with the second having severe proximal disease and the fourth having severe ostial disease. Left circumflex is a medium size vessel with a proximal 40-50% stenosis. RCA has two stents in the mid portion which are widely patent. There is diffuse 25-30% disease distal to the stents. 2. Cholecystectomy. 3. Tonsilectomy an adenoidectomy. 4. Bilateral tubal ligation. 5. Left total hip replacement (2013). 6. Previous stenting of the RCA and LAD around 2006 in [place], [place]. ALLERGIES MEPERIDINE STATINS. MEDICATIONS 1. Nitro patch as needed for chest pain. 2. Nitro sublingual as needed for chest pain. 3. Bystolic 2.5 mg every night 4. Norvasc 2.5 mg daily 5. Aspirin 81 mg daily 6. Cymbalta 60 mg every night 7. Xanax 0.25 mg daily as needed for anxiety 8. Carbadopa/Levodopa 25/100 one tab in the morning, two tabs at night. 9. Synthroid 25 mcg daily 10. Fosamax 70 mg weekly to 25 mg. FAMILY HISTORY Per the patient, there is extensive history of coronary artery disease and myocardial infarction within the family. SOCIAL HISTORY The patient previously smoked into her late 20s. She smoked two packs a day for approximately 10 years. She drinks one glass of red wine per night. Denies illicit drug abuse. REVIEW OF SYSTEMS 14-systems were reviewed including osteopathic. Pertinent positives and negatives above otherwise negative. PHYSICAL EXAMINATION VITAL SIGNS: Temperature 97.0, heart rate 57, blood pressure 141/80, respirations 18, pulse ox 97% on room air. GENERAL: The patient appears well in no acute distress, alert awake and oriented x3. HEENT: Extraocular muscles intact. Mucous membranes moist. NECK: Supple. No JVD at 45 degrees. No carotid bruits heard bilaterally. Carotid upstroke is brisk in nature. HEART: Regular rate and rhythm. Positive first and second heart sounds with no murmurs, gallops or rubs. LUNGS: Clear to auscultation bilaterally. No wheezes, rales or rhonchi. ABDOMEN: Soft, nontender, nondistended. No organomegaly noted. EXTREMITIES: No clubbing, cyanosis or edema. Femoral and distal pulses intact bilaterally. NEUROLOGIC: No focal deficits. SKIN: Warm, dry and intact. OSTEOPATHIC: No kyphoscoliosis, lordosis or paraspinal tender points. LABORATORY FINDINGS Hemoglobin 14.0, hematocrit 40.5, platelets 187. Potassium 4.0, BUN 21, creatinine 0.89, troponin negative x2. CARDIOLOGY STUDIES Electrocardiogram (April 10, 2017 at 05:38) sinus bradycardia with borderline first degree AV block. IMPRESSION 1. Unstable angina on multiple anti-anginals with increasing chest pain with exertion. 2. History of coronary artery disease as above. 3. History of hypothyroidism. 4. History of hypertension 5. Remote history of tobacco abuse. 6. Hyperlipidemia with an ALLERGY TO STATINS currently on Rapitha. RECOMMENDATIONS 1. Ms. Vera presented with increasing unstable angina and is concerning for progression of her coronary artery disease. 2. I have recommended cardiac catheterization. Risks, benefits and alternatives have been explained to her and she consents as such. 3. She will continue on a heparin drip and this will be turned off adult education teacher to the catheterization lab. 4. We will also check a 2-D echo to look at her overall left ventricular function, cardiac structure and possible bowel velocities. 5. Further recommendations will be made after coronary visualization. Thank you for allowing me to see Analy Vera. If there are any questions, please do not hesitate to call. Aquiles Hunter DO VGP/ /8:51 PM /9:46 PM
[2017-04-11] VITALS (23 sets, daily range): BP systolic 114–140; BP diastolic 67–80; PULSE 47–68; RESP 16–20; TEMP 97–98.2; O2SAT 95–97
[2017-04-11] MEDS: HEPARIN-D5W 25,000 U/250 ML 250 ML IV PRN (03:53)
[2017-04-11 06:16] LABS: AUTOMATED NEUTROPHIL # 3.2 TH/MM3 (1.8-7.7); BASOPHIL % 0.3 % (0.0-2.0); EOSINOPHIL # 0.1 TH/MM3 (0-0.4); EOSINOPHIL % 2.5 % (0.0-4.0); HEMATOCRIT 38.7 % (35.0-46.0); HEMO FLAGS DIFF FINAL; LYMPH % 33.8 % (9.0-44.0); MEAN CELL VOLUME 95.9 FL (80.0-100.0); MEAN CORPUSCULAR HEMOGLOBIN 32.5 PG (27.0-34.0); MEAN CORPUSCULAR HGB CONC 33.9 % (32.0-36.0); MONO % 8.2 % (0.0-8.0); NEUT % 55.2 % (16.0-70.0); PLATELET COUNT 140 TH/MM3 (150-450); RED BLOOD COUNT 4.03 MIL/MM3 (4.00-5.30); RED CELL DISTRIBUTION WIDTH 12.6 % (11.6-17.2); WHITE BLOOD COUNT 5.8 TH/MM3 (4.0-11.0)
[2017-04-11 06:25] LABS: APTT (PATIENT) 46.3 SEC (24.3-30.1)
[2017-04-11 06:38] LABS: BICARBONATE 25.5 MEQ/L (21.0-32.0); POTASSIUM 3.8 MEQ/L (3.5-5.1)
[2017-04-11] MEDS: LEVOTHYROXINE SODIUM 25 MCG TAB PO SCH (06:39)
[2017-04-11] MEDS: SODIUM CHLORIDE 0.9% FLUSH 10 ML FLUSH IV FLUSH SCH ×2 (09:00→21:00)
[2017-04-11 09:01] LABS: APTT (PATIENT) 46.6 SEC (24.3-30.1)
--- NOTE | 2017-04-11 09:05 | HHI.PR ---
Subjective Remarks doing well Objective Vitals heart reg lung cta abd s/nt ext no edema Vital Signs Date Time Temp Pulse Resp B/P (MAP) Pulse Ox O2 Delivery O2 Flow Rate FiO2 04/11/17 06:00 57 04/11/17 05:00 47 04/11/17 04:00 50 04/11/17 03:00 52 04/11/17 03:00 97.9 63 18 126/76 (93) 97 04/11/17 02:00 52 04/11/17 01:00 57 04/11/17 00:00 55 04/10/17 23:00 55 04/10/17 23:00 97.9 63 18 122/65 (84) 95 04/10/17 22:00 72 04/10/17 21:00 58 04/10/17 20:00 68 04/10/17 19:00 60 04/10/17 19:00 98.1 65 18 141/63 (89) 96 04/10/17 16:00 58 04/10/17 15:00 52 04/10/17 14:00 58 04/10/17 13:00 51 04/10/17 12:00 51 Result Diagram: 04/11/17 0435 04/11/17 0435 Imaging Last Impressions Chest X-Ray 04/09/17 1527 Signed Impressions: Service Date/Time: Sunday, April 09, 2017 15:45 - CONCLUSION: 1. No acute cardiopulmonary disease. William Thomas MD A/P Problem List: (1) Unstable angina ICD Codes: I20.0 - Unstable angina Status: Acute Plan: cad. 1 lad, 2 rca stents. last [facility] 2006 admitted with unstable angina s/p [facility] 04/10 with MV dz heparin gtt asa not on bb. mendel. CTS following and CABG planned for Friday (2) Coronary arteriosclerosis ICD Codes: I25.10 - Coronary arteriosclerosis Status: Acute Plan: As above. (3) Hypothyroidism ICD Codes: E03.9 - Hypothyroidism Status: Chronic Plan: Continue medication. (4) Hypertension ICD Codes: I10 - Hypertension Status: Acute Plan: Fair control. Continue medication. (5) Parkinsons ICD Codes: G20 - Parkinson's disease Status: Chronic Plan: sinemet. Problem Qualifiers (1) Hypertension: Qualified Codes: I10 - Essential (primary) hypertension Patrick Rodriguez MD Apr 11, 2017 09:05
[2017-04-11] MEDS: ASPIRIN EC 81 MG TABEC PO SCH (09:55)
[2017-04-11] MEDS: CARBIDOPA/LEVODOPA 25 MG/100 MG TAB PO SCH ×4 (09:56→21:22)
[2017-04-11] MEDS: amLODIPine BESYLATE 5 MG TAB PO SCH (09:56)
--- NOTE | 2017-04-11 11:23 | PD.CARD.PN ---
Subjective Subjective Remarks Doing well, no complaints this morning Minimal angina short period last night Objective Medications Current Medications Medications (Trade) Dose Ordered Sig/Andrew Route Start Time Stop Time Status Last Admin (Heparin Inj) 5,000 units UNSCH PRN IV PUSH 04/09/17 23:45 (Heparin Inj) 2,500 units UNSCH PRN IV PUSH 04/09/17 23:45 Heparin Sodium/ Dextrose 250 ml @ 9.24 mls/hr TITRATE PRN IV 04/09/17 17:45 04/11/17 03:53 (Norvasc) 2.5 mg DAILY PO 04/10/17 09:00 04/11/17 09:56 (Ecotrin Ec) 81 mg DAILY PO 04/10/17 09:00 04/11/17 09:55 (Cymbalta Dr) 60 mg HS PO 04/09/17 21:00 04/10/17 21:53 (Synthroid) 25 mcg DAILY@0600 PO 04/10/17 06:00 04/11/17 06:39 (Bystolic) 2.5 mg HS PO 04/09/17 21:00 04/10/17 21:47 (Sinemet 25-100 Mg) 2 tab QID PO 04/10/17 09:00 04/11/17 09:56 (NS Flush) 2 ml BID IV FLUSH 04/10/17 21:00 04/10/17 21:47 (NS Flush) 2 ml UNSCH PRN IV FLUSH 04/10/17 16:45 Papaverine HCl 60 mg/Nitroglycerin 100 mcg/Diltiazem HCl 100 mg/Sodium Chloride 100 ml @ 0 mls/hr DRAG DOWN IRRIGATION 04/10/17 16:45 04/17/17 16:44 Cefazolin Sodium 500 mg/Sodium Chloride 505 ml @ 0 mls/hr DRAG DOWN IRRIGATION 04/10/17 16:45 04/17/17 16:44 Cefazolin Sodium/ Dextrose 50 ml @ 150 mls/hr DRAG DOWN IV 04/10/17 16:45 04/17/17 16:44 (Lopressor) 12.5 mg DRAG DOWN PO 04/10/17 16:45 04/17/17 16:44 (Hibiclens 4% Top Soln) 1 applic DRAG DOWN TOPICAL 04/10/17 16:45 04/17/17 16:44 Insulin Human Regular 100 units/ Sodium Chloride 100 ml @ 0 mls/hr DRAG DOWN PRN IV 04/10/17 16:45 04/17/17 16:44 (Xanax) 0.25 mg Q8H PRN PO 04/11/17 09:15 Vital Signs / I&O Vital Signs Date Time Temp Pulse Resp B/P (MAP) Pulse Ox O2 Delivery O2 Flow Rate FiO2 04/11/17 06:00 57 04/11/17 05:00 47 04/11/17 04:00 50 04/11/17 03:00 52 04/11/17 03:00 97.9 63 18 126/76 (93) 97 04/11/17 02:00 52 04/11/17 01:00 57 04/11/17 00:00 55 04/10/17 23:00 55 04/10/17 23:00 97.9 63 18 122/65 (84) 95 04/10/17 22:00 72 04/10/17 21:00 58 04/10/17 20:00 68 04/10/17 19:00 60 04/10/17 19:00 98.1 65 18 141/63 (89) 96 04/10/17 16:00 58 04/10/17 15:00 52 04/10/17 14:00 58 04/10/17 13:00 51 04/10/17 12:00 51 I/O 04/10/17 04/10/17 04/10/17 04/11/17 04/11/17 04/11/17 07:00 15:00 23:00 07:00 15:00 23:00 Intake Total 240 ml 400 ml Output Total 1000 ml Balance -760 ml 400 ml Intake Oral 240 ml 400 ml Output Urine Total 1000 ml # Voids 2 Physical Exam GENERAL: NAD, AAOx3 SKIN: Warm and dry. HEAD: Atraumatic. Normocephalic. EYES: Pupils equal and round. No scleral icterus. No injection or drainage. ENT: No nasal bleeding or discharge. Mucous membranes pink and moist. NECK: Trachea midline. No JVD. CARDIOVASCULAR: Regular rate and rhythm. RESPIRATORY: No accessory muscle use. Clear to auscultation. Breath sounds equal bilaterally. GASTROINTESTINAL: Abdomen soft, non-tender, nondistended. Hepatic and splenic margins not palpable. MUSCULOSKELETAL: Extremities without clubbing, cyanosis, or edema. No obvious deformities. Right groin with mild ecchymosis, soft, non-tender. Distal pulses intact NEUROLOGICAL: Awake and alert. No obvious cranial nerve deficits. Motor grossly within normal limits. Five out of 5 muscle strength in the arms and legs. Normal speech. PSYCHIATRIC: Appropriate mood and affect; insight and judgment normal. Laboratory Laboratory Tests Test 04/10/17 20:00 04/11/17 04:35 04/11/17 08:32 Urine Color LIGHT-YELLOW Urine Turbidity CLEAR Urine pH 6.5 Urine Specific [place] 1.014 Urine Protein NEG mg/dL Urine Glucose (UA) NEG mg/dL Urine Ketones TRACE mg/dL Urine Occult Blood NEG Urine Nitrite NEG Urine Bilirubin NEG Urine Urobilinogen LESS THAN 2.0 MG/DL Urine Leukocyte Esterase MOD Urine RBC LESS THAN 1 /hpf Urine WBC 4 /hpf Microscopic Urinalysis Comment CULT NOT INDICATED Nasal Screen MRSA (PCR) MRSA NOT DETECTED White Blood Count 5.8 TH/MM3 Red Blood Count 4.03 MIL/MM3 Hemoglobin 13.1 GM/DL Hematocrit 38.7 % Mean Corpuscular Volume 95.9 FL Mean Corpuscular Hemoglobin 32.5 PG Mean Corpuscular Hemoglobin Concent 33.9 % Red Cell Distribution Width 12.6 % Platelet Count 140 TH/MM3 Mean Platelet Volume 9.2 FL Neutrophils (%) (Auto) 55.2 % Lymphocytes (%) (Auto) 33.8 % Monocytes (%) (Auto) 8.2 % Eosinophils (%) (Auto) 2.5 % Basophils (%) (Auto) 0.3 % Neutrophils # (Auto) 3.2 TH/MM3 Lymphocytes # (Auto) 2.0 TH/MM3 Monocytes # (Auto) 0.5 TH/MM3 Eosinophils # (Auto) 0.1 TH/MM3 Basophils # (Auto) 0.0 TH/MM3 CBC Comment DIFF FINAL Differential Comment Activated Partial Thromboplast Time 46.3 SEC 46.6 SEC Blood Urea Nitrogen 16 MG/DL Creatinine 0.79 MG/DL Random Glucose 86 MG/DL Calcium Level 8.6 MG/DL Sodium Level 143 MEQ/L Potassium Level 3.8 MEQ/L Chloride Level 111 MEQ/L Carbon Dioxide Level 25.5 MEQ/L Anion Gap 7 MEQ/L Estimat Glomerular Filtration Rate 72 ML/MIN Assessment and Plan Problem List: (1) Multi-vessel coronary artery stenosis ICD Codes: I25.10 - Atherosclerotic heart disease of [place] coronary artery without angina pectoris (2) Unstable angina ICD Codes: I20.0 - Unstable angina Status: Acute (3) Coronary arteriosclerosis ICD Codes: I25.10 - Coronary arteriosclerosis Status: Acute (4) Hypertension ICD Codes: I10 - Hypertension Status: Acute (5) Parkinsons ICD Codes: G20 - Parkinson's disease Status: Chronic Assessment and Plan 1) MVCAD Possible CABG on Friday Con't heparin drip Minimal angina last night Told her to ask for nitro if needed... if she has a few episodes of angina would just place on a nitro drip 2) No Lopressor secondary to bradycardia 3) EF 60-65% by echo 4) Will plan to see on Friday, if concerns over the weekend please call covering physician Problem Qualifiers (1) Hypertension: Qualified Codes: I10 - Essential (primary) hypertension Aquiles Escamilla DO Apr 11, 2017 11:23
[2017-04-11] MEDS: ALPRAZolam 0.25 MG TAB PO PRN (13:15)
--- NOTE | 2017-04-11 14:37 | PD.CAR.PN ---
CVT Progress Note Subjective/Hospital Course: 71/ female hx of CAD/ stent x 3 2007 LAD, and 2 RCA recurrent chest pain, transferred from [place], underwent cardiac cath by Dr Escamilla 90% LAD, 50 % Diagonal, 80% OM, 90% RCA EF 60% PMH: CAD HLP, HTN, Osteoarthritis, Osteoporosis , questionable Parkinson's on Sinemet ( follows with Dr Covarrubias) , hypothyroidism 04/11 pt had small amount of chest pain last pm and recurrent this afternoon 2/ Nitro sl prn , started on Nitro paste for surgery on Friday remains on Heparin gtt Objective: GENERAL: SKIN: Warm and dry. HEAD: Normocephalic. EYES: No scleral icterus. No injection or drainage. NECK: Supple, trachea midline. No JVD or lymphadenopathy. CARDIOVASCULAR: Regular rate and rhythm without murmurs, gallops, or rubs. right groin site with ecchymosis, no hematoma RESPIRATORY: Breath sounds equal bilaterally. No accessory muscle use. GASTROINTESTINAL: Abdomen soft, non-tender, nondistended. MUSCULOSKELETAL: No cyanosis, or edema. BACK: Nontender without obvious deformity. No CVA tenderness. Vital Signs Date Time Temp Pulse Resp B/P (MAP) Pulse Ox O2 Delivery O2 Flow Rate FiO2 04/11/17 07:00 60 04/11/17 07:00 98.0 56 18 114/74 (87) 97 04/11/17 06:00 57 04/11/17 05:00 47 04/11/17 04:00 50 04/11/17 03:00 52 04/11/17 03:00 97.9 63 18 126/76 (93) 97 04/11/17 02:00 52 04/11/17 01:00 57 04/11/17 00:00 55 04/10/17 23:00 55 04/10/17 23:00 97.9 63 18 122/65 (84) 95 04/10/17 22:00 72 04/10/17 21:00 58 04/10/17 20:00 68 04/10/17 19:00 60 04/10/17 19:00 98.1 65 18 141/63 (89) 96 04/10/17 16:00 58 04/10/17 15:00 52 Labs: Laboratory Tests Test 04/11/17 04:35 04/11/17 08:32 White Blood Count 5.8 TH/MM3 (4.0-11.0) Red Blood Count 4.03 MIL/MM3 (4.00-5.30) Hemoglobin 13.1 GM/DL (11.6-15.3) Hematocrit 38.7 % (35.0-46.0) Mean Corpuscular Volume 95.9 FL (80.0-100.0) Mean Corpuscular Hemoglobin 32.5 PG (27.0-34.0) Mean Corpuscular Hemoglobin Concent 33.9 % (32.0-36.0) Red Cell Distribution Width 12.6 % (11.6-17.2) Platelet Count 140 TH/MM3 (150-450) Mean Platelet Volume 9.2 FL (7.0-11.0) Neutrophils (%) (Auto) 55.2 % (16.0-70.0) Lymphocytes (%) (Auto) 33.8 % (9.0-44.0) Monocytes (%) (Auto) 8.2 % (0.0-8.0) Eosinophils (%) (Auto) 2.5 % (0.0-4.0) Basophils (%) (Auto) 0.3 % (0.0-2.0) Neutrophils # (Auto) 3.2 TH/MM3 (1.8-7.7) Lymphocytes # (Auto) 2.0 TH/MM3 (1.0-4.8) Monocytes # (Auto) 0.5 TH/MM3 (0-0.9) Eosinophils # (Auto) 0.1 TH/MM3 (0-0.4) Basophils # (Auto) 0.0 TH/MM3 (0-0.2) CBC Comment DIFF FINAL Differential Comment Activated Partial Thromboplast Time 46.3 SEC (24.3-30.1) 46.6 SEC (24.3-30.1) Blood Urea Nitrogen 16 MG/DL (7-18) Creatinine 0.79 MG/DL (0.50-1.00) Random Glucose 86 MG/DL (74-106) Calcium Level 8.6 MG/DL (8.5-10.1) Sodium Level 143 MEQ/L (136-145) Potassium Level 3.8 MEQ/L (3.5-5.1) Chloride Level 111 MEQ/L (98-107) Carbon Dioxide Level 25.5 MEQ/L (21.0-32.0) Anion Gap 7 MEQ/L (5-15) Estimat Glomerular Filtration Rate 72 ML/MIN (>89) Result Diagram: 04/11/1743404/11/17434 (1) Multi-vessel coronary artery stenosis Plan: on ASA, intolerant to statins , BB for surgery on Friday Nitro paste started (2) Unstable angina (3) Coronary arteriosclerosis (4) Hypertension Plan: on Norvasc and Bystolic (5) Parkinsons Plan: on Sinemet Problem Qualifiers (1) Hypertension: Qualified Codes: I10 - Essential (primary) hypertension Rebecca House Apr 11, 2017 14:37
[2017-04-11] MEDS: NITROGLYCERIN 2% OINT 1 GM PACKET TOP SCH ×2 (14:56→21:23)
[2017-04-11] MEDS ORDERED: SODIUM CHLORIDE 0.9% FLUSH 10 ML FLUSH IV FLUSH SCH (21:00)
[2017-04-11] MEDS: NEBIVOLOL 2.5 MG TAB PO SCH (21:20)
[2017-04-11] MEDS: DULoxetine HCl DR 60 MG CAP PO SCH (21:20)
[2017-04-12] VITALS (26 sets, daily range): BP systolic 84–138; BP diastolic 52–83; PULSE 32–82; RESP 18; TEMP 97.4–97.8; O2SAT 94–100
[2017-04-12] MEDS: NITROGLYCERIN 2% OINT 1 GM PACKET TOP SCH ×4 (04:29→21:00)
[2017-04-12] MEDS: HEPARIN-D5W 25,000 U/250 ML 250 ML IV PRN (04:36)
[2017-04-12 06:47] LABS: APTT (PATIENT) 47.1 SEC (24.3-30.1); HEMATOCRIT 38.8 % (35.0-46.0); MEAN CELL VOLUME 96.2 FL (80.0-100.0); MEAN CORPUSCULAR HEMOGLOBIN 32.8 PG (27.0-34.0); MEAN CORPUSCULAR HGB CONC 34.1 % (32.0-36.0); PLATELET COUNT 152 TH/MM3 (150-450); RED BLOOD COUNT 4.04 MIL/MM3 (4.00-5.30); RED CELL DISTRIBUTION WIDTH 12.8 % (11.6-17.2); REVIEW FLAG FINAL; WHITE BLOOD COUNT 5.7 TH/MM3 (4.0-11.0)
[2017-04-12] MEDS: LEVOTHYROXINE SODIUM 25 MCG TAB PO SCH (07:54)
--- NOTE | 2017-04-12 08:26 | HHI.PR ---
Subjective Remarks doing ok. no cp Objective Vitals heart reg lung cta abd s/nt ext no edema Vital Signs Date Time Temp Pulse Resp B/P (MAP) Pulse Ox O2 Delivery O2 Flow Rate FiO2 04/12/17 08:00 63 04/12/17 07:00 97.4 63 18 120/83 (95) 100 04/12/17 07:00 51 04/12/17 06:00 62 04/12/17 05:00 50 04/12/17 04:45 97.8 58 18 114/65 (81) 98 04/12/17 04:00 54 04/12/17 03:00 51 04/12/17 02:00 54 04/12/17 01:00 58 04/12/17 00:00 56 04/11/17 23:33 97.6 54 20 140/70 (93) 96 04/11/17 23:00 52 04/11/17 20:00 68 04/11/17 20:00 98.0 60 20 122/80 (94) 95 04/11/17 18:00 58 04/11/17 17:00 59 04/11/17 16:00 62 04/11/17 15:07 98.2 61 18 121/67 (85) 97 04/11/17 15:00 62 04/11/17 14:00 60 04/11/17 13:00 58 04/11/17 12:00 56 04/11/17 11:00 97.0 57 16 125/80 (95) 96 04/11/17 11:00 59 04/11/17 10:00 60 04/11/17 09:00 60 Result Diagram: 04/12/17 0557 04/11/17 0435 Imaging Last Impressions Chest X-Ray 04/09/17 1527 Signed Impressions: Service Date/Time: Sunday, April 09, 2017 15:45 - CONCLUSION: 1. No acute cardiopulmonary disease. William Thomas MD A/P Problem List: (1) Unstable angina ICD Codes: I20.0 - Unstable angina Status: Acute Plan: cad. 1 lad, 2 rca stents. last [facility] 2006 admitted with unstable angina currently stable. s/p [facility] 04/10 with MV dz heparin gtt asa not on bb. mendel. CTS following and CABG planned for Friday (2) Coronary arteriosclerosis ICD Codes: I25.10 - Coronary arteriosclerosis Status: Acute Plan: As above. (3) Hypothyroidism ICD Codes: E03.9 - Hypothyroidism Status: Chronic Plan: Continue medication. (4) Hypertension ICD Codes: I10 - Hypertension Status: Acute Plan: Fair control. Continue medication. (5) Parkinsons ICD Codes: G20 - Parkinson's disease Status: Chronic Plan: sinemet. Problem Qualifiers (1) Hypertension: Qualified Codes: I10 - Essential (primary) hypertension Patrick Rodriguez MD Apr 12, 2017 08:26
[2017-04-12] MEDS: amLODIPine BESYLATE 5 MG TAB PO SCH (08:33)
[2017-04-12] MEDS: ASPIRIN EC 81 MG TABEC PO SCH (08:33)
[2017-04-12] MEDS: SODIUM CHLORIDE 0.9% FLUSH 10 ML FLUSH IV FLUSH SCH ×2 (08:34→21:00)
[2017-04-12] MEDS: CARBIDOPA/LEVODOPA 25 MG/100 MG TAB PO SCH ×4 (08:37→21:10)
[2017-04-12] MEDS: ALPRAZolam 0.25 MG TAB PO PRN (17:50)
[2017-04-12] MEDS: NITROGLYCERIN 0.4 MG SL 25 TABS/BTL SL PRN ×2 (18:17→21:10)
[2017-04-12] MEDS: NEBIVOLOL 2.5 MG TAB PO SCH (21:00)
[2017-04-13] VITALS (25 sets, daily range): BP systolic 109–144; BP diastolic 59–81; PULSE 50–81; RESP 16–18; TEMP 97.5–98; O2SAT 95–98
[2017-04-13] MEDS: DULoxetine HCl DR 60 MG CAP PO SCH ×2 (00:26→21:54)
[2017-04-13] MEDS: NITROGLYCERIN 2% OINT 1 GM PACKET TOP SCH ×4 (04:22→21:54)
[2017-04-13] MEDS: LEVOTHYROXINE SODIUM 25 MCG TAB PO SCH (05:18)
[2017-04-13 06:08] LABS: AUTOMATED NEUTROPHIL # 3.5 TH/MM3 (1.8-7.7); BASOPHIL % 0.3 % (0.0-2.0); EOSINOPHIL # 0.2 TH/MM3 (0-0.4); EOSINOPHIL % 2.5 % (0.0-4.0); HEMO FLAGS DIFF FINAL; LYMPH % 31.1 % (9.0-44.0); LYMPHOCYTE # 1.9 TH/MM3 (1.0-4.8); MEAN CELL VOLUME 95.5 FL (80.0-100.0); MEAN CORPUSCULAR HEMOGLOBIN 32.8 PG (27.0-34.0); MEAN CORPUSCULAR HGB CONC 34.4 % (32.0-36.0); MONO % 9.5 % (0.0-8.0); NEUT % 56.6 % (16.0-70.0); PLATELET COUNT 148 TH/MM3 (150-450); RED BLOOD COUNT 4.19 MIL/MM3 (4.00-5.30); RED CELL DISTRIBUTION WIDTH 12.5 % (11.6-17.2); WHITE BLOOD COUNT 6.2 TH/MM3 (4.0-11.0)
[2017-04-13 06:31] LABS: ALKALINE PHOSPHATASE 68 U/L (45-117); ALT (GPT) 11 U/L (10-53); ANION GAP 5 MEQ/L (5-15); AST (GOT) 22 U/L (15-37); BICARBONATE 26.1 MEQ/L (21.0-32.0); BLOOD UREA NITROGEN 17 MG/DL (7-18); CHLORIDE 111 MEQ/L (98-107); GLOMERULAR FILTRATION RATE 57 ML/MIN (>89); POTASSIUM 4.8 MEQ/L (3.5-5.1); SODIUM (NA) 142 MEQ/L (136-145); TOTAL BILIRUBIN ADULT 0.4 MG/DL (0.2-1.0)
[2017-04-13 06:42] LABS: APTT (PATIENT) 32.9 SEC (24.3-30.1); PROTHROMBIN TIME - PATIENT 11.1 SEC (9.8-11.6)
[2017-04-13] MEDS ORDERED: MORPHINE SULFATE 2 MG/ML INJ IV PUSH PRN (07:30)
[2017-04-13] MEDS: amLODIPine BESYLATE 5 MG TAB PO SCH (07:54)
[2017-04-13] MEDS: ASPIRIN EC 81 MG TABEC PO SCH (07:54)
[2017-04-13] MEDS: CARBIDOPA/LEVODOPA 25 MG/100 MG TAB PO SCH ×4 (07:55→21:00)
[2017-04-13] MEDS: SODIUM CHLORIDE 0.9% FLUSH 10 ML FLUSH IV FLUSH SCH ×2 (07:56→21:55)
[2017-04-13] MEDS: HEPARIN-D5W 25,000 U/250 ML 250 ML IV PRN (08:00)
--- NOTE | 2017-04-13 09:16 | HHI.PR ---
Subjective Remarks doing ok. h/a with ntg...but cp without ntg Objective Vitals heart reg lung cta abd s/nt ext no edema Vital Signs Date Time Temp Pulse Resp B/P (MAP) Pulse Ox O2 Delivery O2 Flow Rate FiO2 04/13/17 08:00 57 04/13/17 07:00 97.7 57 18 143/81 (101) 98 04/13/17 07:00 52 04/13/17 05:00 50 04/13/17 04:18 97.9 58 16 112/60 (77) 95 04/13/17 04:00 56 04/13/17 03:00 53 04/13/17 02:00 53 04/13/17 01:00 52 04/13/17 00:19 97.5 81 18 109/59 (76) 97 04/13/17 00:00 81 04/12/17 23:00 53 04/12/17 22:00 54 04/12/17 21:10 105/58 (74) 04/12/17 21:00 52 04/12/17 20:00 58 04/12/17 20:00 97.7 55 18 84/52 (63) 97 04/12/17 19:00 60 04/12/17 18:22 18 04/12/17 18:00 73 04/12/17 17:00 52 04/12/17 16:00 82 04/12/17 15:00 54 04/12/17 15:00 97.6 58 18 138/80 (99) 98 04/12/17 14:00 56 04/12/17 13:00 59 04/12/17 12:00 62 04/12/17 11:00 61 04/12/17 11:00 97.8 59 18 121/69 (86) 94 04/12/17 10:00 77 Result Diagram: 04/13/17 0526 04/13/17 0526 Imaging Last Impressions Chest X-Ray 04/09/17 1527 Signed Impressions: Service Date/Time: Sunday, April 09, 2017 15:45 - CONCLUSION: 1. No acute cardiopulmonary disease. William Thomas MD A/P Problem List: (1) Unstable angina ICD Codes: I20.0 - Unstable angina Status: Acute Plan: cad. 1 lad, 2 rca stents. last [facility] 2006 admitted with unstable angina currently stable. s/p [facility] 04/10 with MV dz heparin gtt asa not on bb. mendel. ntg....prn pain meds for h/a CTS following and CABG planned for Friday (2) Coronary arteriosclerosis ICD Codes: I25.10 - Coronary arteriosclerosis Status: Acute Plan: As above. (3) Hypothyroidism ICD Codes: E03.9 - Hypothyroidism Status: Chronic Plan: Continue medication. (4) Hypertension ICD Codes: I10 - Hypertension Status: Acute Plan: Fair control. Continue medication. (5) Parkinsons ICD Codes: G20 - Parkinson's disease Status: Chronic Plan: sinemet. Problem Qualifiers (1) Hypertension: Qualified Codes: I10 - Essential (primary) hypertension Patrick Rodriguez MD Apr 13, 2017 09:16
[2017-04-13 11:59] LABS: HEMOGLOBIN A1a 1.1 %; HEMOGLOBIN A1b 0.7 %; HEMOGLOBIN Ao 86.3 %; HEMOGLOBIN F 1.1 %; HEMOGLOBIN LA1C 1.9 %; HEMOGLOBIN P3 3.4 %
[2017-04-13] MEDS: LACTOBACILLUS ACIDOPHILUS TAB PO SCH ×2 (13:42→17:51)
[2017-04-13 17:42] LABS: APTT (PATIENT) 50.9 SEC (24.3-30.1)
[2017-04-13] MEDS: ALPRAZolam 0.25 MG TAB PO PRN (17:50)
[2017-04-13] MEDS: NEBIVOLOL 2.5 MG TAB PO SCH (22:01)
[2017-04-14] VITALS (17 sets, daily range): BP systolic 92–137; BP diastolic 57–82; PULSE 50–80; RESP 14–18; TEMP 97.4–97.8; O2SAT 91–100
[2017-04-14] MEDS ORDERED: METOPROLOL TARTRATE 25 MG TAB PO PRN (01:00)
[2017-04-14] MEDS ORDERED: CHLORHEXIDINE GLUCONATE 2 % 1 PACK (2 CLOTHS) TOPICAL PRN (01:00)
[2017-04-14] MEDS ORDERED: LACTATED RINGER'S 1000 ML IV PRN (01:00)
[2017-04-14] MEDS ORDERED: SODIUM CHLORID 0.9% 500 ML IV PRN (01:00)
[2017-04-14] MEDS ORDERED: INSULIN HUMAN REGULAR 1,000 UNITS/10 ML VIAL SQ PRN (01:00)
[2017-04-14] MEDS ORDERED: POVIDONE IODINE 5% (ANTISEPSIS KIT) 4 APPLICATIONS EACH NARE PRN (01:00)
[2017-04-14] MEDS: NITROGLYCERIN 2% OINT 1 GM PACKET TOP SCH (03:00)
[2017-04-14] MEDS: LEVOTHYROXINE SODIUM 25 MCG TAB PO SCH (05:35)
[2017-04-14] MEDS ORDERED: VANCOMYCIN HCL 1000 MG VIAL ONE (06:36)
[2017-04-14] MEDS ORDERED: HEPARIN SODIUM - SQ 10,000 UNITS/ML VIAL ONE (06:36)
[2017-04-14] MEDS ORDERED: ceFAZolin 2 GM PREMIX 50 ML ONE (06:36)
[2017-04-14] MEDS ORDERED: methylPREDNISolone SOD SUCC 125 MG/2 ML VIAL ONE (06:36)
[2017-04-14] MEDS ORDERED: CARDIOPLEGIC IRR 2,000 ML ONE (07:05)
[2017-04-14] MEDS ORDERED: POTASSIUM CHLORIDE 40 MEQ/20 ML VIAL ONE ×3 (07:06→12:04)
[2017-04-14] MEDS ORDERED: ALBUMIN HUMAN 25% 12.5 GM/50 ML BAGP IV ONE (07:06)
[2017-04-14] MEDS ORDERED: HEPARIN SODIUM - IV 10,000 UNITS/10 ML VIAL ONE (07:07)
[2017-04-14] MEDS ORDERED: SODIUM BICARBONATE 8.4% INJ 50 ML ONE (07:08)
[2017-04-14] MEDS ORDERED: MANNITOL INJ 100 ML ONE (07:10)
[2017-04-14] MEDS ORDERED: DEXMEDETOMIDINE HCL 200 MCG/2 ML VIAL ONE (11:40)
[2017-04-14] MEDS ORDERED: ceFAZolin INJ 1,000 MG VIAL ONE (11:41)
[2017-04-14] MEDS ORDERED: LACTATED RINGER'S 1000 ML INJ 500 ML IV PRN (11:48)
[2017-04-14] MEDS ORDERED: CALCIUM CHLORIDE 10% 1 GRAM/10 ML VIAL IV PUSH PRN (12:00)
[2017-04-14] MEDS ORDERED: SODIUM BICARBONATE 8.4% SOLN 50 MEQ/50 ML VIAL IV PUSH PRN ×2 (12:00)
[2017-04-14] MEDS ORDERED: CALCIUM CHLORIDE INJ 1 GM in SODIUM CHLORIDE 0.9% INJ 100 ML IV PRN (12:00)
[2017-04-14] MEDS ORDERED: CLEVIDIPINE INJ 50 ML IV PRN (12:00)
[2017-04-14] MEDS ORDERED: RESP: ALBUTEROL 2.5 MG/IPRATROPIUM 0.5 MG NEB (PRN) NEB (12:00)
[2017-04-14] MEDS ORDERED: ONDANSETRON HCL 4 MG/2 ML VIAL IV PUSH PRN (12:00)
[2017-04-14] MEDS ORDERED: ACETAMINOPHEN 325 MG TAB PO PRN (12:00)
[2017-04-14] MEDS ORDERED: ACETAMINOPHEN 650 MG SUPP RECTAL PRN (12:00)
[2017-04-14] MEDS ORDERED: MAGNESIUM SULFATE INJ 2 GM in SODIUM CHLORIDE 0.9% INJ 100 ML IV PRN ×4 (12:00)
[2017-04-14] MEDS ORDERED: POTASSIUM CHLORIDE 20 MEQ CONTROLLED RELEASE TAB PO PRN ×2 (12:00)
[2017-04-14] MEDS ORDERED: INSULIN REGULAR (IV INFUSION) 100 UNITS in SODIUM CHLORIDE 0.9% INJ 99 ML IV PRN (12:00)
[2017-04-14] MEDS ORDERED: RESP: RACEPINEPHRINE 2.25% 0.5 ML NEB NEB PRN (12:00)
[2017-04-14] MEDS ORDERED: METOPROLOL TARTRATE 5 MG/5 ML VIAL IV PUSH PRN (12:00)
[2017-04-14] MEDS ORDERED: hydrALAZINE HCL 20 MG/ML VIAL IV PUSH PRN (12:00)
[2017-04-14] MEDS ORDERED: POTASSIUM CHLOR 20 MEQ PREMIX 100 ML IV PRN ×3 (12:00)
[2017-04-14] MEDS ORDERED: Post-op Orders (for Pharmacy) MISC OTHER ONE (12:00)
[2017-04-14] MEDS ORDERED: DEXTROSE 50% IN WATER 50 ML VIAL(D50) IV PUSH PRN (12:00)
[2017-04-14] MEDS ORDERED: DEXMEDETOMIDINE INJ 200 MCG in SODIUM CHLORIDE 0.9% INJ 50 ML IV PRN (12:00)
--- NOTE | 2017-04-14 12:05 | PD.OP ---
cc: Carla Garcia MD; Aquiles Escamilla DO Operative Report Date of Surgery: Apr 14, 2017 Preoperative Diagnosis: (1) Multi-vessel coronary artery stenosis (2) Unstable angina Postoperative Diagnosis: same Procedure: CABG x 4 WHATLEY to LAD - good SVG to OM1 - good SVG to OM2 - good SVG to PDA - good EVH Anesthesia: Dr. Parikh Surgeon: Carla Garcia Ski Patrol Officer(s): Gianfranco Jansen Operation and Findings: The risks, benefits, complications, treatment options, and expected outcomes were discussed with the patient. The possibilities of reaction to medication, pulmonary aspiration, perforation of viscus, bleeding, recurrent infection, the need for additional procedures, failure to diagnose a condition, and creating a complication requiring transfusion or operation were discussed with the patient. The patient concurred with the proposed plan, giving informed consent. The site of surgery properly noted/marked. The patient was taken to Operating Room, identified as Analy Vera and the procedure verified as CABG, EVH. A Time Out was held and the above information confirmed. Standard monitoring lines and Barrow catheter were placed. General anesthesia was induced. The patient was prepped and draped in a sterile fashion. A median sternotomy was performed and electrocautery was used to obtain hemostasis. The left internal mammary artery was procured as a pedicle from the 7th rib to the 1st rib in the usual manner. Simultaneously left greater saphenous vein was procured from the left leg using a minimally invasive endoscopic technique. The vein was prepared for anastomosis and the leg wound was irrigated and closed in 2 layers. The pericardium was opened and a pericardial sling was created using interrupted 0 silk sutures. The patient was heparinized for cardiopulmonary bypass and the distal mammary pedicle was instrumented for anastomosis. The heart was instrumented for cardiopulmonary bypass in the usual manner. Antegrade blood cardioplegia was employed. The patient was placed on cardiopulmonary bypass. An aortic cross-clamp was applied and the heart was arrested using cold blood cardioplegia. Antegrade cardioplegia was administered after he each anastomosis. After adequate arrest, the distal right coronary circulation was investigated and the PDA was opened with a [place] blade and found to be a 1.5 millimeter good target. Saphenous vein was approximated to the PDA artery using a running 7 0 Prolene suture. The graft was measured for length and orientation and the proximal anastomosis was constructed to the ascending aorta using a running 5 0 Prolene suture after creating an aortotomy with a 5 millimeter punch. The OM2 artery was opened with a [place] blade and found to be a 1.5 millimeter good target. Saphenous vein was approximated to the OM2 artery using a running 7 0 Prolene suture. The graft was measured for length and orientation and the proximal anastomosis was constructed to the ascending aorta using a running 5 0 Prolene suture after creating an aortotomy with a 5 millimeter punch. The 1st circumflex marginal artery was then opened with a [place] blade and found to be a 1.5 millimeter good target. The OM1 artery was intramyocardial. Saphenous vein was approximated to the OM1 artery using a running 7 0 Prolene suture. The graft was measured for length and orientation and was suspended from the pericardium. The distal LAD was opened with a [place] blade and found to be a 1.5 millimeter good target. The left internal mammary artery was approximated to the LAD using a running 7 0 Prolene suture. The pedicle was attached to the epicardium using interrupted 5 0 silk suture. The patient was systemically rewarmed and received a hotshot dose of warm blood cardioplegia. The aorta was vented and the proximal anastomosis to the OM1 graft was accomplished using a running 5 0 Prolene suture after creating an aortotomy was a 5 millimeter punch. The cross-clamp was removed and all proximal and distal anastomoses were examined for hemostasis. Temporary atrial pacing on wires were positioned and brought out through the skin in the usual manner. The patient was paced at 80 beats per minute and weaned from cardiopulmonary bypass. Protamine was given. There was no adverse reaction. Decannulation was carried out without incident. Wound was checked for hemostasis which was obtained using electrocautery. A 36 [place] mediastinal and 32 [place]e left pleural chest tubes were placed and secured to the skin with 0 silk suture. The sternum was closed with stainless steel wire. The fascia was closed with 1. PDS. The subcutaneous tissue was closed using a running 2-0 Vicryl suture. The skin was closed with 4- 0 Monocryl. Sterile dressings were placed. At the end of the operation, all sponge, instruments, and needle counts were correct. The patient was transferred to the CVICU in stable condition. Findings: Good distal targets XC: 63 min CPB: 78 min Drains: mediastinal x 1 pleural x 1 Complications: none Disposition: to CVICU in stable condition Pacing Wires: 2 atrial Carla Garcia MD Apr 14, 2017 12:05
[2017-04-14] MEDS: PHENYLEPHRINE 40 MG in D5W 500 ML IV PRN (12:40)
[2017-04-14] MEDS: LACTOBACILLUS ACIDOPHILUS TAB PO SCH ×2 (13:00→17:57)
[2017-04-14] MEDS: CARBIDOPA/LEVODOPA 25 MG/100 MG TAB PO SCH ×3 (13:00→20:29)
--- NOTE | 2017-04-14 13:18 | RADRPT ---
EXAM DATE/TIME: 04/14/2017 12:57 [facility] COMPARISON: CHEST SINGLE AP, April 09, 2017, 15:45. INDICATIONS : Post CABG. MEDICAL HISTORY : Hypothyroidism. Parkinson's. Hypertension. Headache. Chest pain. SURGICAL HISTORY : Tonsillectomy. Angioplasty. Cholecystectomy. Cardiac stents. Tubal ligation. Left ENCOUNTER: Initial ACUITY: 1 day PAIN SCORE: Non-responsive. LOCATION: Bilateral chest FINDINGS: A single view of the chest demonstrates the lungs to be symmetrically aerated without evidence of mas s, infiltrate or effusion. Status post median sternotomy. Left-sided chest tube without pneumothorax. Endotracheal tube with tip 3.5 cm above the madiha. Nasogastric tube with tip in stomach. Right jugu lar central line with tip in the right atrium. No pneumothorax on the right The cardiomediastinal con tours are unremarkable. Osseous structures are intact. CONCLUSION: 1. Status post CABG. 2. Support lines and tubes as described above. Oz Wick MD on April 14, 2017 at 13:13 Board Certified Radiologist. This report was verified electronically.
[2017-04-14] MEDS: ACETAMINOPHEN 1000 MG/100 ML 100 ML IV SCH ×2 (14:58→20:30)
[2017-04-14] MEDS ORDERED: TERBUTALINE INJ 1 MG/ML AMP SQ PRN (15:00)
[2017-04-14] MEDS: KETOROLAC TROMETHAMINE 30 MG/ML (IVP) VIAL IV PUSH PRN ×2 (16:26→23:31)
[2017-04-14] MEDS: ALBUMIN HUMAN 5% 12.5 GM/250 ML BOTTLE IV PRN (16:57)
[2017-04-14] MEDS: oxyCODONE/ACETAMINOPHEN 5 MG/325 MG TAB PO PRN (18:08)
[2017-04-14] MEDS: DULoxetine HCl DR 60 MG CAP PO SCH (20:29)
[2017-04-14] MEDS: AMIODARONE 200 MG TAB PO SCH (20:29)
[2017-04-14] MEDS: SODIUM CHLORIDE 0.9% FLUSH 10 ML FLUSH IV FLUSH SCH (21:00)
[2017-04-15] VITALS (9 sets, daily range): BP systolic 73–111; BP diastolic 50–65; PULSE 79–90; RESP 16–18; TEMP 97.6–98.5; O2SAT 94–100
[2017-04-15] MEDS: oxyCODONE/ACETAMINOPHEN 5 MG/325 MG TAB PO PRN (02:43)
[2017-04-15] MEDS: ACETAMINOPHEN 1000 MG/100 ML 100 ML IV SCH ×2 (03:19→08:23)
[2017-04-15 04:51] LABS: MEAN CELL VOLUME 97.1 FL (80.0-100.0); MEAN CORPUSCULAR HEMOGLOBIN 31.9 PG (27.0-34.0); MEAN CORPUSCULAR HGB CONC 32.9 % (32.0-36.0); PLATELET COUNT 110 TH/MM3 (150-450); RED BLOOD COUNT 2.12 MIL/MM3 (4.00-5.30); RED CELL DISTRIBUTION WIDTH 13.1 % (11.6-17.2); WHITE BLOOD COUNT 18.4 TH/MM3 (4.0-11.0)
[2017-04-15 04:55] LABS: REVIEW FLAG FINAL
[2017-04-15 04:59] LABS: HEMATOCRIT 20.6 % (35.0-46.0)
--- NOTE | 2017-04-15 05:04 | RADRPT ---
EXAM DATE/TIME: 04/15/2017 04:22 [facility] COMPARISON: CHEST SINGLE AP, April 14, 2017, 12:57. INDICATIONS : Short of breath. MEDICAL HISTORY : Hypothyroidism. Parkinson's. Hypertension. Headache. Chest pain. SURGICAL HISTORY : Tubal ligation. Cholecystectomy. Appendectomy. Cardiac stents. ENCOUNTER: Subsequent ACUITY: 1 week PAIN SCORE: 0/10 LOCATION: Bilateral chest FINDINGS: There has been interval extubation. Nasogastric tube is been removed. Thoracostomy tubes remain in pl [facility]. Right neck sheath and central catheter are stable. Lungs are satisfactorily aerated. Cardiac con tours are unchanged. CONCLUSION: Interval extubation and removal of nasogastric tube with stable aeration. Clarence Palacios MD on April 15, 2017 at 5:02 Board Certified Radiologist. This report was verified electronically.
[2017-04-15 05:09] LABS: BICARBONATE 22.7 MEQ/L (21.0-32.0); MAGNESIUM 1.9 MG/DL (1.5-2.5); POTASSIUM 4.3 MEQ/L (3.5-5.1)
[2017-04-15 05:22] LABS: CALCIUM-PROTEIN CORRECTED 8.8 MG/DL (8.5-10.1)
[2017-04-15] MEDS: PANTOPRAZOLE SOD 40 MG DELAYED RELEASE TAB PO SCH (06:49)
[2017-04-15] MEDS: LEVOTHYROXINE SODIUM 25 MCG TAB PO SCH (06:49)
[2017-04-15] MEDS: PHENYLEPHRINE 40 MG in D5W 500 ML IV PRN (08:24)
[2017-04-15] MEDS: SODIUM CHLORIDE 0.9% FLUSH 10 ML FLUSH IV FLUSH SCH ×2 (08:25→20:30)
[2017-04-15] MEDS: AMIODARONE 200 MG TAB PO SCH (08:25)
[2017-04-15] MEDS: LACTOBACILLUS ACIDOPHILUS TAB PO SCH ×3 (08:25→18:00)
[2017-04-15] MEDS: ASPIRIN 81 MG CHEW TAB PO SCH (08:25)
[2017-04-15] MEDS: CARBIDOPA/LEVODOPA 25 MG/100 MG TAB PO SCH ×4 (08:25→20:30)
[2017-04-15] MEDS ORDERED: MULTIVITAMIN INJ 10 ML, THIAMINE INJ 500 MG, FOLIC ACID INJ 1 MG in SODIUM CHLORID 0.9%... IV SCH (09:00)
[2017-04-15] MEDS ORDERED: SODIUM BICARBONATE 8.4% INJ 50 MEQ/50 ML SYR ONE (09:18)
--- NOTE | 2017-04-15 09:24 | PD.CAR.PN ---
CVT Progress Note CVT: POD #: 1 Subjective/Hospital Course: 71/ female hx of CAD/ stent x 3 2007 LAD, and 2 RCA recurrent chest pain, transferred from [place], underwent cardiac cath by Dr Escamilla 90% LAD, 50 % Diagonal, 80% OM, 90% RCA EF 60% PMH: CAD HLP, HTN, Osteoarthritis, Osteoporosis , questionable Parkinson's on Sinemet ( follows with Dr Covarrubias) , hypothyroidism 04/11 pt had small amount of chest pain last pm and recurrent this afternoon 2/ Nitro sl prn , started on Nitro paste for surgery on Friday remains on Heparin gtt 04/15/17 c/o fatigue, dizzy. Objective: Vital Signs Date Time Temp Pulse Resp B/P (MAP) Pulse Ox O2 Delivery O2 Flow Rate FiO2 04/15/17 08:24 79 106/63 04/15/17 07:30 97.6 79 16 96/62 100 04/15/17 07:00 97.6 79 16 93/51 (65) 100 96/62 (73) 04/15/17 07:00 100 Nasal Cannula 4.00 04/15/17 07:00 79 04/15/17 07:00 79 04/15/17 03:49 18 04/15/17 03:30 18 04/15/17 03:30 18 04/15/17 03:00 97.6 79 18 111/54 (73) 99 110/63 (79) 04/15/17 03:00 79 04/15/17 03:00 79 04/15/17 03:00 99 Nasal Cannula 4.00 04/15/17 00:35 18 04/14/17 23:00 99 Nasal Cannula 5.00 04/14/17 23:00 79 04/14/17 23:00 79 04/14/17 23:00 97.6 79 18 94/57 (69) 91 96/60 (72) 04/14/17 21:37 95 Nasal Cannula 4.00 04/14/17 19:00 79 04/14/17 19:00 99 Nasal Cannula 4.00 04/14/17 19:00 79 04/14/17 19:00 97.5 79 18 93/60 (71) 99 99/57 (71) 04/14/17 18:04 79 84/60 04/14/17 16:15 100 Nasal Cannula 4.00 04/14/17 16:10 95 Nasal Cannula 4 04/14/17 16:10 95 Nasal Cannula 4.00 04/14/17 15:50 40 04/14/17 15:50 Nasal Cannula 40 04/14/17 15:00 100 Mechanical Ventilator 40 04/14/17 15:00 79 04/14/17 15:00 79 04/14/17 15:00 97.4 79 14 102/69 (80) 100 92/61 (71) 04/14/17 13:40 99 40 04/14/17 12:50 79 04/14/17 12:40 97.7 80 14 97/69 (78) 99 96/57 (70) 04/14/17 12:40 80 04/14/17 12:40 99 Mechanical Ventilator 50 04/14/17 12:40 50 04/14/17 12:40 80 96/57 04/14/17 12:35 99 50 Labs: Laboratory Tests Test 04/15/17 04:35 White Blood Count 18.4 TH/MM3 (4.0-11.0) Red Blood Count 2.12 MIL/MM3 (4.00-5.30) Hemoglobin 6.8 GM/DL (11.6-15.3) Hematocrit 20.6 % (35.0-46.0) Mean Corpuscular Volume 97.1 FL (80.0-100.0) Mean Corpuscular Hemoglobin 31.9 PG (27.0-34.0) Mean Corpuscular Hemoglobin Concent 32.9 % (32.0-36.0) Red Cell Distribution Width 13.1 % (11.6-17.2) Platelet Count 110 TH/MM3 (150-450) Mean Platelet Volume 9.1 FL (7.0-11.0) Blood Urea Nitrogen 12 MG/DL (7-18) Creatinine 0.54 MG/DL (0.50-1.00) Random Glucose 100 MG/DL (74-106) Total Protein 4.1 GM/DL (6.4-8.2) Calcium Level 7.1 MG/DL (8.5-10.1) Magnesium Level 1.9 MG/DL (1.5-2.5) Sodium Level 145 MEQ/L (136-145) Potassium Level 4.3 MEQ/L (3.5-5.1) Chloride Level 115 MEQ/L (98-107) Carbon Dioxide Level 22.7 MEQ/L (21.0-32.0) Anion Gap 7 MEQ/L (5-15) Estimat Glomerular Filtration Rate 112 ML/MIN (>89) Protein Corrected Calcium 8.8 MG/DL (8.5-10.1) Result Diagram: 04/15/1743404/15/17434 Imaging: No infiltrate/effusion Cardiovascular: RRR Telemetry: NSR Pulmonary: decreased BS bilat GI/: decreased BS, NT Incision: dry and intact CT: ~500ml since OR Plan: Patient hypotensive and anemic this morning. Remains on a ANAHI drip. Plan: Wean ANAHI Transfused 2 units pRBC Supp electrolytes Up to chair. May not be ready to transfer depending on whether ANAHI can be weaned off. Advance diet (1) Multi-vessel coronary artery stenosis Plan: on ASA, intolerant to statins , BB for surgery on Friday Nitro paste started (2) Unstable angina (3) Coronary arteriosclerosis (4) Hypertension Plan: on Norvasc and Bystolic (5) Parkinsons Plan: on Sinemet Problem Qualifiers (1) Hypertension: Qualified Codes: I10 - Essential (primary) hypertension Carla Garcia MD Apr 15, 2017 09:24
--- NOTE | 2017-04-15 09:39 | RSPPFT ---
DATE OF PROCEDURE: 04/11/17 COMMENTS: The forced vital capacity, FEV1, FEV1/FVC ratio and FEF 25-75 are all normal. IMPRESSION: This is a normal pulmonary function study.
[2017-04-15] MEDS: ALBUMIN HUMAN 5% 12.5 GM/250 ML BOTTLE IV PRN (09:41)
--- NOTE | 2017-04-15 09:48 | EKG ---
Date Performed: 04/15/2017 Time Performed: 05:54:18 PTAGE: 71 years EKG: Demand atrial pacing Anterior T wave changes are nonspecific Abnormal ECG PREVIOUS TRACING : 04/10/2017 05.38 Compared to prior study, atrial pacing is new. DOCTOR: Sebastian Zarate Interpretating Date/Time 04/15/2017 09:46:09
--- NOTE | 2017-04-15 09:50 | PD.CARD.PN ---
Subjective Subjective Remarks Extubated Feels fatigued Appropriate chest pain, no SOB Aleksandr gtt Atrial paced at 90 bpm Objective Medications Current Medications Medications (Trade) Dose Ordered Sig/Andrew Route Start Time Stop Time Status Last Admin (Doretha Seaman) 60 mg HS PO 04/09/17 21:00 04/14/17 20:29 (Synthroid) 25 mcg DAILY@0600 PO 04/10/17 06:00 04/15/17 06:49 (Sinemet 25-100 Mg) 2 tab QID PO 04/10/17 09:00 04/15/17 08:25 (NS Flush) 2 ml BID IV FLUSH 04/10/17 21:00 04/14/17 21:00 (NS Flush) 2 ml UNSCH PRN IV FLUSH 04/10/17 16:45 04/14/17 23:31 Papaverine HCl 60 mg/Nitroglycerin 100 mcg/Diltiazem HCl 100 mg/Sodium Chloride 100 ml @ 0 mls/hr [employer]ORDINATOR IRRIGATION 04/10/17 16:45 04/17/17 16:44 Cefazolin Sodium 500 mg/Sodium Chloride 505 ml @ 0 mls/hr [employer] CO[employer]INATOR IRRIGATION 04/10/17 16:45 04/17/17 16:44 Cefazolin Sodium/ Dextrose 50 ml @ 150 mls/hr [employer]BER SERVICES COORDINATOR IV 04/10/17 16:45 04/17/17 16:44 (Lopressor) 12.5 mg [employer]BER SERVICES COORDINATOR PO 04/10/17 16:45 04/17/17 16:44 (Hibiclens 4% Top Soln) 1 applic [employer]BER SERVICES COORDINATOR TOPICAL 04/10/17 16:45 04/17/17 16:44 04/14/17 05:36 (Tylenol) 650 mg Q4H PRN PO 04/13/17 07:30 (Lactinex) 1 tab TID PO 04/13/17 13:00 04/15/17 08:25 Lactated Ringer's 1,000 ml @ 30 mls/hr Q24H PRN IV 04/14/17 01:00 04/17/17 00:59 Sodium Chloride 500 ml @ 30 mls/hr [id number] PRN IV 04/14/17 01:00 04/17/17 00:59 (Lopressor) 25 mg MEMBER SERVICES COORDINATOR PRN PO 04/14/17 01:00 04/17/17 00:59 (Betadine 5% Antisepsis Kit) 1 applic [employer] SERVICES COORDINATOR PRN EACH NARE 04/14/17 01:00 04/17/17 00:59 (Chlorhexidine 2% Cloth) 3 pack [employer]BER SERVICES COORDINATOR PRN TOPICAL 04/14/17 01:00 04/17/17 00:59 (Albumin 5% Inj) 12.5 gm UNSCH PRN IV 04/14/17 12:00 04/15/17 09:41 Lactated Ringer's 500 ml @ 500 mls/hr Q1H PRN IV 04/14/17 11:48 Cefazolin Sodium 1000 mg/Sodium Chloride 100 ml @ 200 mls/hr Q8H IV 04/14/17 16:00 04/16/17 00:29 04/15/17 08:25 (Aspirin Chew) 81 mg DAILY PO 04/15/17 09:00 04/15/17 08:25 (Protonix) 40 mg DAILY@06 PO 04/15/17 06:00 04/15/17 06:49 Multivitamins 10 ml/Thiamine HCl 500 mg/Folic Acid 1 mg/Sodium Chloride 515.2 ml @ 21 mls/hr DAILY IV 04/15/17 09:00 (Tylenol) 650 mg Q4H PRN PO 04/14/17 12:00 (Tylenol Supp) 650 mg Q4H PRN RECTAL 04/14/17 12:00 (Percocet 5-325 Mg) 1 tab Q3H PRN PO 04/14/17 12:00 04/15/17 02:43 (Toradol Inj) 15 mg Q6H PRN IV PUSH 04/14/17 12:00 04/16/17 11:59 04/14/17 23:31 (fentaNYL INJ) 25 mcg Q1H PRN IV PUSH 04/14/17 12:00 04/15/17 09:42 (Zofran Inj) 4 mg Q6H PRN IV PUSH 04/14/17 12:00 (Lopressor Inj) 2.5 mg Q1H PRN IV PUSH 04/14/17 12:00 Potassium Chloride 100 ml @ 50 mls/hr UNSCH PRN IV 04/14/17 12:00 Potassium Chloride 100 ml @ 50 mls/hr UNSCH PRN IV 04/14/17 12:00 Potassium Chloride 100 ml @ 50 mls/hr UNSCH PRN IV 04/14/17 12:00 (KCl) 20 meq UNSCH PRN PO 04/14/17 12:00 (KCl) 40 meq UNSCH PRN PO 04/14/17 12:00 Magnesium Sulfate 2 gm/Sodium Chloride 104 ml @ 100 mls/hr UNSCH PRN IV 04/14/17 12:00 Calcium Chloride 1 gm/Sodium Chloride 110 ml @ 100 mls/hr UNSCH PRN IV 04/14/17 12:00 (Calcium Chloride Inj) 0.5 gm UNSCH PRN IV PUSH 04/14/17 12:00 Insulin Human Regular 100 units/ Sodium Chloride 100 ml @ 3 mls/hr TITRATE PRN IV 04/14/17 12:00 (D50w (Vial) Inj) 50 ml UNSCH PRN IV PUSH 04/14/17 12:00 04/15/17 02:44 (Sodium Bicarbonate 8.4% Inj) 50 meq UNSCH PRN IV PUSH 04/14/17 12:00 (Sodium Bicarbonate 8.4% Inj) 100 meq UNSCH PRN IV PUSH 04/14/17 12:00 (Duoneb Neb) 1 ampule Q2HR NEB PRN NEB 04/14/17 12:00 04/14/17 21:40 Phenylephrine HCl 40 mg/Dextrose 500 ml @ 30 mls/hr TITRATE PRN IV 04/14/17 15:00 04/15/17 08:24 (Brethine Inj) 1 mg UNSCH PRN SQ 04/14/17 15:00 Vital Signs / I&O Vital Signs Date Time Temp Pulse Resp B/P (MAP) Pulse Ox O2 Delivery O2 Flow Rate FiO2 04/15/17 08:24 79 106/63 04/15/17 07:30 97.6 79 16 96/62 100 04/15/17 07:00 97.6 79 16 93/51 (65) 100 96/62 (73) 04/15/17 07:00 100 Nasal Cannula 4.00 04/15/17 07:00 79 04/15/17 07:00 79 04/15/17 03:49 18 04/15/17 03:30 18 04/15/17 03:30 18 04/15/17 03:00 97.6 79 18 111/54 (73) 99 110/63 (79) 04/15/17 03:00 79 04/15/17 03:00 79 04/15/17 03:00 99 Nasal Cannula 4.00 04/15/17 00:35 18 04/14/17 23:00 99 Nasal Cannula 5.00 04/14/17 23:00 79 04/14/17 23:00 79 04/14/17 23:00 97.6 79 18 94/57 (69) 91 96/60 (72) 04/14/17 21:37 95 Nasal Cannula 4.00 04/14/17 19:00 79 04/14/17 19:00 99 Nasal Cannula 4.00 04/14/17 19:00 79 04/14/17 19:00 97.5 79 18 93/60 (71) 99 99/57 (71) 04/14/17 18:04 79 84/60 04/14/17 16:15 100 Nasal Cannula 4.00 04/14/17 16:10 95 Nasal Cannula 4 04/14/17 16:10 95 Nasal Cannula 4.00 04/14/17 15:50 40 04/14/17 15:50 Nasal Cannula 40 04/14/17 15:00 100 Mechanical Ventilator 40 04/14/17 15:00 79 04/14/17 15:00 79 04/14/17 15:00 97.4 79 14 102/69 (80) 100 92/61 (71) 04/14/17 13:40 99 40 04/14/17 12:50 79 04/14/17 12:40 97.7 80 14 97/69 (78) 99 96/57 (70) 04/14/17 12:40 80 04/14/17 12:40 99 Mechanical Ventilator 50 04/14/17 12:40 50 04/14/17 12:40 80 96/57 04/14/17 12:35 99 50 I/O 04/14/17 04/14/17 04/14/17 04/15/17 04/15/17 04/15/17 07:00 15:00 23:00 07:00 15:00 23:00 Intake Total 240 ml 3800 ml 1755 ml 903 ml 400 ml Output Total 550 ml 2900 ml 1750 ml 1310 ml Balance -310 ml 900 ml 5 ml -407 ml 400 ml Intake Oral 240 ml 120 ml 200 ml IV Total 1635 ml 703 ml Packed Cells 400 ml Other 3800 ml Output Urine Total 550 ml 900 ml 1450 ml 1000 ml Stool Total 0 ml Gastric Drainage Total 50 ml Chest Tube Drainage Total 200 ml 300 ml Drainage Total 50 ml 10 ml Estimated Blood Loss 1000 ml Autotransfusion 1000 ml # Bowel Movements 0 0 0 Physical Exam GENERAL: NAD, AAOx3 SKIN: Warm and dry. HEAD: Atraumatic. Normocephalic. EYES: Pupils equal and round. No scleral icterus. No injection or drainage. ENT: No nasal bleeding or discharge. Mucous membranes pink and moist. NECK: Trachea midline. No JVD. CARDIOVASCULAR: Regular rate and rhythm. RESPIRATORY: No accessory muscle use. Clear to auscultation. Breath sounds equal bilaterally. GASTROINTESTINAL: Abdomen soft, non-tender, nondistended. Hepatic and splenic margins not palpable. MUSCULOSKELETAL: Extremities without clubbing, cyanosis, or edema. No obvious deformities. Right groin with mild ecchymosis, soft, non-tender. Distal pulses intact NEUROLOGICAL: Awake and alert. No obvious cranial nerve deficits. Motor grossly within normal limits. Five out of 5 muscle strength in the arms and legs. Normal speech. PSYCHIATRIC: Appropriate mood and affect; insight and judgment normal. Laboratory Laboratory Tests Test 04/15/17 04:35 White Blood Count 18.4 TH/MM3 Red Blood Count 2.12 MIL/MM3 Hemoglobin 6.8 GM/DL Hematocrit 20.6 % Mean Corpuscular Volume 97.1 FL Mean Corpuscular Hemoglobin 31.9 PG Mean Corpuscular Hemoglobin Concent 32.9 % Red Cell Distribution Width 13.1 % Platelet Count 110 TH/MM3 Mean Platelet Volume 9.1 FL Blood Urea Nitrogen 12 MG/DL Creatinine 0.54 MG/DL Random Glucose 100 MG/DL Total Protein 4.1 GM/DL Calcium Level 7.1 MG/DL Magnesium Level 1.9 MG/DL Sodium Level 145 MEQ/L Potassium Level 4.3 MEQ/L Chloride Level 115 MEQ/L Carbon Dioxide Level 22.7 MEQ/L Anion Gap 7 MEQ/L Estimat Glomerular Filtration Rate 112 ML/MIN Protein Corrected Calcium 8.8 MG/DL Assessment and Plan Problem List: (1) Multi-vessel coronary artery stenosis ICD Codes: I25.10 - Atherosclerotic heart disease of [place] coronary artery without angina pectoris (2) Unstable angina ICD Codes: I20.0 - Unstable angina Status: Acute (3) Coronary arteriosclerosis ICD Codes: I25.10 - Coronary arteriosclerosis Status: Acute (4) Hypertension ICD Codes: I10 - Hypertension Status: Acute (5) Parkinsons ICD Codes: G20 - Parkinson's disease Status: Chronic Assessment and Plan 1) MVCAD s/p CABGx4 POD #1 WHATLEY to LAD SVG to OM1 SVG to OM2 SVG to PDA 2) No Lopressor pre-op due to baseline bradycardia Previously on Bystolic, will hold for hypotension 3) EF 60-65% by echo 4) Anemia Post-op Transfuse 2 units PRBC 5) Wean Aleksandr as possible 6) Con't ASA Problem Qualifiers (1) Hypertension: Qualified Codes: I10 - Essential (primary) hypertension Aquiles Escamilla DO Apr 15, 2017 09:50
[2017-04-15] MEDS ORDERED: CALCIUM CHLORIDE INJ 1 GM in SODIUM CHLORIDE 0.9% INJ 100 ML IV ONE (10:00)
[2017-04-15] MEDS ORDERED: SODIUM BICARBONATE 8.4% INJ 50 MEQ/50 ML SYR IV PUSH ONE (10:15)
[2017-04-15] MEDS ORDERED: GLUCAGON 1 MG/ML VIAL OTHER PRN (11:15)
[2017-04-15] MEDS ORDERED: DEXTROSE 50% IN WATER 50 ML VIAL(D50) IV PUSH PRN (11:15)
[2017-04-15] MEDS ORDERED: SODIUM BICARBONATE 8.4% SOLN 50 MEQ/50 ML VIAL IV ONE (11:15)
[2017-04-15] MEDS: INDIVIDUALIZED INSULIN NOVOLOG SUPPLEMENTAL SCALE SQ SCH ×3 (14:00→23:17)
[2017-04-15] MEDS: DULoxetine HCl DR 60 MG CAP PO SCH (20:30)
[2017-04-16] VITALS (7 sets, daily range): BP systolic 83–154; BP diastolic 55–89; PULSE 60–71; RESP 14–18; TEMP 97.6–98.9; O2SAT 95–99
[2017-04-16] MEDS: INDIVIDUALIZED INSULIN NOVOLOG SUPPLEMENTAL SCALE SQ SCH ×6 (02:00→21:13)
[2017-04-16] MEDS: PANTOPRAZOLE SOD 40 MG DELAYED RELEASE TAB PO SCH (06:08)
[2017-04-16] MEDS: LEVOTHYROXINE SODIUM 25 MCG TAB PO SCH (06:08)
[2017-04-16 08:02] LABS: HEMATOCRIT 22.2 % (35.0-46.0); MEAN CELL VOLUME 87.3 FL (80.0-100.0); MEAN CORPUSCULAR HEMOGLOBIN 29.4 PG (27.0-34.0); MEAN CORPUSCULAR HGB CONC 33.6 % (32.0-36.0); PLATELET COUNT 90 TH/MM3 (150-450); RED BLOOD COUNT 2.55 MIL/MM3 (4.00-5.30); RED CELL DISTRIBUTION WIDTH 21.8 % (11.6-17.2)
[2017-04-16 08:08] LABS: REVIEW FLAG FINAL
[2017-04-16 08:18] LABS: ALT (GPT) 13 U/L (10-53); ANION GAP 7 MEQ/L (5-15); AST (GOT) 36 U/L (15-37); BICARBONATE 22.3 MEQ/L (21.0-32.0); BLOOD UREA NITROGEN 15 MG/DL (7-18); CHLORIDE 113 MEQ/L (98-107); GLOMERULAR FILTRATION RATE 80 ML/MIN (>89); POTASSIUM 4.3 MEQ/L (3.5-5.1); SODIUM (NA) 142 MEQ/L (136-145)
[2017-04-16 08:22] LABS: ALKALINE PHOSPHATASE 57 U/L (45-117); TOTAL BILIRUBIN ADULT 0.5 MG/DL (0.2-1.0)
--- NOTE | 2017-04-16 09:18 | PD.CONS ---
HPI Service Critical Care Medicine Consult Requested By Dr. Buck Reason for Consult Symptomatic hypotension s/p CABG x 4 04/14/17 (WHATLEY to LAD SVG to OM1, OM2, PDA) Primary Care Physician Cleopatra Chandler MD History of Present Illness A 71-year-old female admitted with acute coronary syndrome/unstable angina. Patient has history of coronary artery disease, stents placed in the past by Dr. Salcido in 2006, a stent to the mid LAD and two stents to the right coronary artery. This admission underwent cardiac cath by Dr. Escamilla which showed left main disease at 10%, proximal LAD 90%, mid distal 80%, diagonal 50%, the circ 20%, the OM 80%, the RCA 90%. The 2-D echo showed normal EF. Underwent CABG x 4 on 04/14/17 (WHATLEY to LAD SVG to OM1, OM2, PDA). Critical care medicine was consulted today for persistent postoperative hypotension which is symptomatic. Patient does not have a history of hypotension, but had been hypertensive in the past. She is requiring 20-40 mcg/m Aleksandr-Synephrine to keep map above 60-65. CT surgery had held Sinemet from today as it could cause hypotension. Due to risk of developing neuroleptic malignant syndrome with abrupt discontinuation of Sinemet, I have recommended dose reduction from 5 tablets of 25/100 Sinemet a day to 3 tablets and gradually wean off. I have requested a stat cortisol level and TSH. TSH came back at 7.22, and Synthroid was increased to 50 g from 25. Cortisol level came back at 11 which is indicating relative adrenal insufficiency. Level is low for patient who remains hypotensive on pressors. For hemoglobin of 7.5 will give 1 unit of PRBC. Started on midodrine 5 mg by mouth 3 times a day. Discussed plan with CT ARCHITECTURAL EXAMINER Criselda House Review of Systems ROS Limitations: Other (as per HPI) Past Family Social History Allergies: Coded Allergies: meperidine (Unverified Allergy, Severe, VOMITING, 04/09/17) codeine (Verified Allergy, Intermediate, Vomiting, 04/09/17) Uncoded Allergies: statin (Allergy, Intermediate, myopathy, 04/10/17) myyopathy Past Medical History Coronary artery disease Hyperlipidemia Hypertension Movement disorder, possible Parkinson's Hypothyroidism Osteoarthritis Osteoporosis Past Surgical History CABG x4 04/14/17 Cholecystectomy Distant history of tonsillectomy and adenoidectomy Bilateral tubal ligation Left total hip replacement in 2014 Cardiac catheterization with 3 stents placed in the approximately 2007 Reported Medications Home medsXarelto 10 Mg Tab (Rivaroxaban) 10 Mg Tab 10 Mg PO Q24H Hydrocodone/Acetaminophen 7.5 mg/325 mg 1 Tab Tab 1 Tab PO Q4H PRN Miralax PRN Vitamin D (Cholecalciferol) 5,000 Unit Tab 5,000 Unit PO DAILY Coq-10 (Coenzyme Q10) 400 Mg Cap 400 Mg PO TID Fosamax (Alendronate Sodium) 70 Mg Tab 70 Mg PO Q7D Atorvastatin 10 mg (Atorvastatin Calcium) 10 Mg Tab 5 Mg PO HS 30 Days Carvedilol 6.25 mg (Carvedilol) 6.25 Mg Tab 1 Tab PO BID Aspir-81 (Aspirin) 81 Mg Tab 81 Mg PO DAILY Sinemet 25/100 (Carbidopa/Levodopa) 25 Mg/100 Mg Tab 1 Tab PO TID Multivitamin (Multivitamins) 1 Tab Tab 1 Tab PO DAILY Cymbalta (Duloxetine HCl) 60 Mg Cap 60 Mg PO DAILY Synthroid (Levothyroxine Sodium) 25 Mcg Tab 25 Mcg PO DAILY Active Ordered Medications Reviewed Family History Significant for coronary artery disease Social History Quit smoking in her 20s One glass of red wine per night Physical Exam Vital Signs Vital Signs Date Time Temp Pulse Resp B/P (MAP) Pulse Ox O2 Delivery O2 Flow Rate FiO2 04/16/17 03:00 98 Nasal Cannula 4.00 04/16/17 03:00 60 04/16/17 03:00 97.9 60 18 92/55 (67) 98 95/55 (68) 04/16/17 03:00 60 04/15/17 23:00 89 04/15/17 23:00 89 04/15/17 23:00 96 Nasal Cannula 5.00 04/15/17 23:00 98.2 90 18 91/56 (68) 96 97/58 (71) 04/15/17 20:05 95 21 04/15/17 19:05 18 04/15/17 19:00 93 Nasal Cannula 4.00 04/15/17 19:00 89 04/15/17 19:00 89 04/15/17 19:00 98.4 89 18 97/50 (66) 94 102/58 (73) 04/15/17 15:30 95 21 04/15/17 15:00 95 Room Air 04/15/17 15:00 89 04/15/17 15:00 89 04/15/17 15:00 98.2 89 16 73/65 (68) 95 94/57 (69) 04/15/17 11:00 90 04/15/17 11:00 90 04/15/17 11:00 98.5 90 16 106/54 (71) 97 96/52 (67) 04/15/17 11:00 97 Nasal Cannula 2.00 Physical Exam GENERAL: This is a well-nourished, well-developed patient, in no apparent distress. Sitting up in cardiac chair SKIN: Cool and dry. HEAD: Atraumatic. Normocephalic. No temporal or scalp tenderness. EYES: Pupils equal round and reactive. ENT: Airway patent. NECK: Trachea midline. No JVD or lymphadenopathy. Supple, nontender, no meningeal signs. CARDIOVASCULAR: Regular rate and rhythm without murmurs, gallops, or rubs. Midline CABG dressing clean dry RESPIRATORY: Clear to auscultation. Breath sounds equal bilaterally. L chest tube with 800 ml serosanguineous output GASTROINTESTINAL: Abdomen soft, non-tender, nondistended. NEUROLOGICAL: Awake and alert. Cranial nerves II through XII intact. Motor and sensory grossly within normal limits. Five out of 5 muscle strength in all muscle groups Laboratory Laboratory Tests Test 04/16/17 07:40 04/16/17 08:50 White Blood Count 12.0 Red Blood Count 2.55 Hemoglobin 7.5 Hematocrit 22.2 Mean Corpuscular Volume 87.3 Mean Corpuscular Hemoglobin 29.4 Mean Corpuscular Hemoglobin Concent 33.6 Red Cell Distribution Width 21.8 Platelet Count 90 Mean Platelet Volume 9.2 Blood Urea Nitrogen 15 Creatinine 0.72 Random Glucose 110 Total Protein 4.7 Albumin 2.6 Calcium Level 7.9 Alkaline Phosphatase 57 Aspartate Amino Transf (AST/SGOT) 36 Alanine Aminotransferase (ALT/SGPT) 13 Total Bilirubin 0.5 Sodium Level 142 Potassium Level 4.3 Chloride Level 113 Carbon Dioxide Level 22.3 Anion Gap 7 Estimat Glomerular Filtration Rate 80 Thyroid Stimulating Hormone 3rd Gen 7.220 Result Diagram: 10/11/17 0740 10/11/17 0740 Imaging Chest x-ray shows mild right-sided LL infiltrate Assessment and Plan Assessment and Plan ASSESSMENT: Symptomatic hypotension Relative adrenal insufficiency Status post CABG 4 on 04/14/17 Coronary artery disease Hyperlipidemia Hypertension Movement disorder, possible Parkinson's Hypothyroidism PLAN (system regan) NEURO: - Tylenol, Percocet for pain - Decrease Sinemet 25/100 to 3 tabs daily in divided doses. (Was on 5 tabs daily , avoid abrupt cessation due to risk of NMS) - Hold Cymbalta RESP: - Nasal cannula oxygen - DuoNeb every 6 hours scheduled and when necessary - Chest tube with persistent high out put. 800 mL serosanguineous in 24 hours. Management per CTS CV: - Currently on Aleksandr-Synephrine 40 mcg/m for hypotension. Wean to keep map more than 60 - Hold all antihypertensives. Start Midrin 5 mg by mouth every 8 hours - Random cortisol at 8:30 AM was 11. Indicates relative adrenal insufficiency in the setting of hypotension and pressor use - Start stress dose steroid 100 mg x1 and 50 mg IV q6 - Continue aspirin GI: - Continue heart healthy diet : - Monitor renal function closely. ID: - There is no evidence of sepsis. Check UA, sputum and blood culture - No antibiotics at this time HEME: - Monitor CBC, CMP, coags ENDO: - Electrolyte replacement protocol - Increase Synthroid to 50 g daily PROPH: - Bilateral lower extremity SCDs. Hold off chemical DVT prophylaxis due to high output from chest tube serosanguineous CC time 35 min Code Status Full Discussed Condition With Discussed with CTS Aura Lima MD Apr 16, 2017 09:18
[2017-04-16] MEDS: CARBIDOPA/LEVODOPA 25 MG/100 MG TAB PO SCH ×2 (09:30→21:11)
[2017-04-16] MEDS ORDERED: HYDROCORTISONE SOD SUCCINATE 100 MG VIAL IV STA (09:52)
[2017-04-16] MEDS: ASPIRIN 81 MG CHEW TAB PO SCH (09:55)
[2017-04-16] MEDS: LACTOBACILLUS ACIDOPHILUS TAB PO SCH ×3 (09:55→18:00)
[2017-04-16] MEDS: MIDODRINE 5 MG TAB PO SCH ×3 (09:55→16:38)
[2017-04-16] MEDS: SODIUM CHLORIDE 0.9% FLUSH 10 ML FLUSH IV FLUSH SCH ×2 (09:56→21:12)
[2017-04-16] MEDS ORDERED: CALCIUM CHLORIDE INJ 1 GM in SODIUM CHLORIDE 0.9% INJ 100 ML IV ONE (10:00)
--- NOTE | 2017-04-16 11:23 | RADRPT ---
EXAM DATE/TIME: 04/16/2017 10:23 [facility] COMPARISON: CHEST SINGLE AP, April 15, 2017, 4:22. INDICATIONS : Respiratory Disease. MEDICAL HISTORY : Hypothyroidism. Parkinson's. Hypertension. Headache. Chest pain.Hypercholestrolemia. Anxiety. Depress ion. Skin cancer SURGICAL HISTORY : Tonsillectomy. Angioplasty. Cholecystectomy. Cardiac stents. Tubal ligation. Left hip replacement. ENCOUNTER: Subsequent ACUITY: 1 week PAIN SCORE: 10/10 LOCATION: Bilateral chest FINDINGS: The venous catheter left chest tube in good position. Minimal increased parenchymal changes right ba se. Left lung is clear. Negative for pneumothorax. CONCLUSION: Minimal increased parenchymal changes right base. Isaac Luna MD FACR on April 16, 2017 at 11:21 Board Certified Radiologist. This report was verified electronically.
[2017-04-16] MEDS: oxyCODONE/ACETAMINOPHEN 5 MG/325 MG TAB PO PRN (11:28)
--- NOTE | 2017-04-16 13:26 | ECHRPT ---
Indication: pericardial effusion/EF CONCLUSIONS Technically difficult study Limited study for overall ejection fraction The left ventricular systolic function is normal with an estimated ejection fraction in the range of 60-65%. There was limited left ventricular wall motion assessment due to poor endocardial visualization. There is no pericardial effusion noted. BP: 92 / 55 HR: 60 Rhythm: MEASUREMENTS (Male / Female) Normal Values Technical Quality:Technically difficult study 2D ECHO LV Diastolic Diameter PLAX 2.6 cm 4.2 - 5.9 / 3.9 - 5.3 cm LV Systolic Diameter PLAX 1.7 cm IVS Diastolic Thickness 1.3 cm 0.6 - 1.0 / 0.6 - 0.9 cm LVPW Diastolic Thickness 1.3 cm 0.6 - 1.0 / 0.6 - 0.9 cm LV Relative Wall Thickness 1.0 M-MODE LV Diastolic Diameter MM 2.5 cm 4.2 - 5.9 / 3.9 - 5.3 cm LV Systolic Diameter MM 1.7 cm LV Ejection Fraction MM Teich 64.7 % LV Cardiac Index MM Teich 437.8 cm/minm IVS Diastolic Thickness MM 1.3 cm 0.6 - 1.0 / 0.6 - 0.9 cm LVPW Diastolic Thickness MM 1.3 cm 0.6 - 1.0 / 0.6 - 0.9 cm LV Relative Wall Thickness MM 1.0 0.24 - 0.42 / 0.22 - 0.42 LV Mass Index MM 50.3 g/m 49 - 115 / 43 - 95 g/m FINDINGS LEFT VENTRICLE The left ventricular systolic function is normal with an estimated ejection fraction in the range of 60-65%. Normal left ventricular size. There was limited left ventricular wall motion assessment due to poor endocardial visualization. There is abnormal (paradoxical) septal motion consistent with postoperative state. RIGHT VENTRICLE In limited views, appears to have normal systolic function PERICARDIUM There is no pericardial effusion noted. Aquiles Escamilla DO (Electronically Signed) Final Date:16 April 2017 13:25
--- NOTE | 2017-04-16 14:28 | PD.CARD.PN ---
Subjective Subjective Remarks Patient was stood up earlier and passed out Doesn't feel well overall, no specific complaints Denies chest pain Aleksandr at 20 mcgs Objective Medications Current Medications Medications (Trade) Dose Ordered Sig/Andrew Route Start Time Stop Time Status Last Admin (Doretha Seaman) 60 mg HS PO 04/09/17 21:00 Future Hold 04/15/17 20:30 (NS Flush) 2 ml BID IV FLUSH 04/10/17 21:00 04/16/17 09:56 (NS Flush) 2 ml UNSCH PRN IV FLUSH 04/10/17 16:45 04/14/17 23:31 Cefazolin Sodium 500 mg/Sodium Chloride 505 ml @ 0 mls/hr TAX ASSISTANT IRRIGATION 04/10/17 16:45 04/17/17 16:44 Future Hold Cefazolin Sodium/ Dextrose 50 ml @ 150 mls/hr TAX ASSISTANT IV 04/10/17 16:45 04/17/17 16:44 Future Hold (Hibiclens 4% Top Soln) 1 applic TAX ASSISTANT TOPICAL 04/10/17 16:45 04/17/17 16:44 Future Hold 04/14/17 05:36 (Tylenol) 650 mg Q4H PRN PO 04/13/17 07:30 (Lactinex) 1 tab TID PO 04/13/17 13:00 04/16/17 09:55 Lactated Ringer's 1,000 ml @ 30 mls/hr Q24H PRN IV 04/14/17 01:00 04/17/17 00:59 Sodium Chloride 500 ml @ 30 mls/hr [id number] PRN IV 04/14/17 01:00 04/17/17 00:59 Future Hold (Chlorhexidine 2% Cloth) 3 pack TAX ASSISTANT PRN TOPICAL 04/14/17 01:00 04/17/17 00:59 Future Hold (Albumin 5% Inj) 12.5 gm UNSCH PRN IV 04/14/17 12:00 04/15/17 09:41 Lactated Ringer's 500 ml @ 500 mls/hr Q1H PRN IV 04/14/17 11:48 (Aspirin Chew) 81 mg DAILY PO 04/15/17 09:00 04/16/17 09:55 (Protonix) 40 mg DAILY@06 PO 04/15/17 06:00 04/16/17 06:08 (Tylenol) 650 mg Q4H PRN PO 04/14/17 12:00 (Tylenol Supp) 650 mg Q4H PRN RECTAL 04/14/17 12:00 Future Hold (Percocet 5-325 Mg) 1 tab Q3H PRN PO 04/14/17 12:00 04/16/17 11:28 (Zofran Inj) 4 mg Q6H PRN IV PUSH 04/14/17 12:00 Potassium Chloride 100 ml @ 50 mls/hr UNSCH PRN IV 04/14/17 12:00 Potassium Chloride 100 ml @ 50 mls/hr UNSCH PRN IV 04/14/17 12:00 Potassium Chloride 100 ml @ 50 mls/hr UNSCH PRN IV 04/14/17 12:00 (KCl) 20 meq UNSCH PRN PO 04/14/17 12:00 (KCl) 40 meq UNSCH PRN PO 04/14/17 12:00 Magnesium Sulfate 2 gm/Sodium Chloride 104 ml @ 100 mls/hr UNSCH PRN IV 04/14/17 12:00 Calcium Chloride 1 gm/Sodium Chloride 110 ml @ 100 mls/hr UNSCH PRN IV 04/14/17 12:00 Future Hold (Calcium Chloride Inj) 0.5 gm UNSCH PRN IV PUSH 04/14/17 12:00 Future Hold (D50w (Vial) Inj) 50 ml UNSCH PRN IV PUSH 04/14/17 12:00 04/15/17 02:44 (Duoneb Neb) 1 ampule Q2HR NEB PRN NEB 04/14/17 12:00 04/14/17 21:40 Phenylephrine HCl 40 mg/Dextrose 500 ml @ 30 mls/hr TITRATE PRN IV 04/14/17 15:00 04/15/17 08:24 (D50w (Vial) Inj) 50 ml UNSCH PRN IV PUSH 04/15/17 11:15 (Glucagon Inj) 1 mg UNSCH PRN OTHER 04/15/17 11:15 (NovoLOG SUPPLEMENTAL SCALE) 1 Q4H SQ 04/15/17 14:00 04/15/17 23:17 (Synthroid) 50 mcg DAILY@0600 PO 04/17/17 06:00 (Proamatine) 5 mg TID@,,17 PO 04/16/17 09:30 04/16/17 12:14 (Sinemet 25-100 Mg) 1 tab Q12HR PO 04/16/17 09:30 (SoluCORTEF INJ) 50 mg Q6H IV 04/16/17 16:00 (Duoneb Neb) 1 ampule Q6HR NEB NEB 04/16/17 11:00 Vital Signs / I&O Vital Signs Date Time Temp Pulse Resp B/P (MAP) Pulse Ox O2 Delivery O2 Flow Rate FiO2 04/16/17 13:26 98.2 64 16 101/62 95 04/16/17 11:00 97 Nasal Cannula 4.00 04/16/17 11:00 64 04/16/17 11:00 97.8 66 16 102/58 (73) 97 Arterial Line 04/16/17 11:00 64 04/16/17 07:00 99 Nasal Cannula 4.00 04/16/17 07:00 98.7 64 16 83/55 (64) 99 04/16/17 07:00 68 04/16/17 03:00 98 Nasal Cannula 4.00 04/16/17 03:00 60 04/16/17 03:00 97.9 60 18 92/55 (67) 98 95/55 (68) 04/16/17 03:00 60 04/15/17 23:00 89 04/15/17 23:00 89 04/15/17 23:00 96 Nasal Cannula 5.00 04/15/17 23:00 98.2 90 18 91/56 (68) 96 97/58 (71) 04/15/17 20:05 95 21 04/15/17 19:05 18 04/15/17 19:00 93 Nasal Cannula 4.00 04/15/17 19:00 89 04/15/17 19:00 89 04/15/17 19:00 98.4 89 18 97/50 (66) 94 102/58 (73) 04/15/17 15:30 95 21 04/15/17 15:00 95 Room Air 04/15/17 15:00 95 21 04/15/17 15:00 89 04/15/17 15:00 89 04/15/17 15:00 98.2 89 16 73/65 (68) 95 94/57 (69) I/O 10/10/04/15/17 04/15/17 04/16/17 04/16/17 04/16/17 07:00 15:00 23:00 07:00 15:00 23:00 Intake Total 903 ml 1500 ml 480 ml 497 ml 760 ml Output Total 1310 ml 1570 ml 733 ml Balance -407 ml 1500 ml -1090 ml -236 ml 760 ml Intake Oral 200 ml 480 ml 220 ml IV Total 703 ml 650 ml 277 ml 110 ml Packed Cells 800 ml 400 ml Blood Product IV Normal Saline Flush 50 ml 250 ml Output Urine Total 1000 ml 1100 ml 400 ml Chest Tube Drainage Total 300 ml 470 ml 330 ml Drainage Total 10 ml 0 ml 3 ml # Bowel Movements 0 0 0 Physical Exam GENERAL: NAD, AAOx3 SKIN: Warm and dry. HEAD: Atraumatic. Normocephalic. EYES: Pupils equal and round. No scleral icterus. No injection or drainage. ENT: No nasal bleeding or discharge. Mucous membranes pink and moist. NECK: Trachea midline. No JVD. CARDIOVASCULAR: Regular rate and rhythm. Sternotomy with wound vac RESPIRATORY: No accessory muscle use. Clear to auscultation. Breath sounds equal bilaterally. GASTROINTESTINAL: Abdomen soft, non-tender, nondistended. Hepatic and splenic margins not palpable. MUSCULOSKELETAL: Extremities without clubbing, cyanosis, or edema. No obvious deformities. Right groin with mild ecchymosis, soft, non-tender. Distal pulses intact NEUROLOGICAL: Awake and alert. No obvious cranial nerve deficits. Motor grossly within normal limits. Five out of 5 muscle strength in the arms and legs. Normal speech. PSYCHIATRIC: Appropriate mood and affect; insight and judgment normal. Laboratory Laboratory Tests Test 04/16/17 07:40 04/16/17 08:50 White Blood Count 12.0 TH/MM3 Red Blood Count 2.55 MIL/MM3 Hemoglobin 7.5 GM/DL Hematocrit 22.2 % Mean Corpuscular Volume 87.3 FL Mean Corpuscular Hemoglobin 29.4 PG Mean Corpuscular Hemoglobin Concent 33.6 % Red Cell Distribution Width 21.8 % Platelet Count 90 TH/MM3 Mean Platelet Volume 9.2 FL Blood Urea Nitrogen 15 MG/DL Creatinine 0.72 MG/DL Random Glucose 110 MG/DL Total Protein 4.7 GM/DL Albumin 2.6 GM/DL Calcium Level 7.9 MG/DL Alkaline Phosphatase 57 U/L Aspartate Amino Transf (AST/SGOT) 36 U/L Alanine Aminotransferase (ALT/SGPT) 13 U/L Total Bilirubin 0.5 MG/DL Sodium Level 142 MEQ/L Potassium Level 4.3 MEQ/L Chloride Level 113 MEQ/L Carbon Dioxide Level 22.3 MEQ/L Anion Gap 7 MEQ/L Estimat Glomerular Filtration Rate 80 ML/MIN Thyroid Stimulating Hormone 3rd Gen 7.220 uIU/ML Random Cortisol 11.0 MCG/DL Imaging Last 24 hours Impressions Chest X-Ray 04/16/17 0000 Signed Impressions: Service Date/Time: Friday, April 16, 2017 10:23 - CONCLUSION: Minimal increased parenchymal changes right base. Isaac Luna MD FACR Assessment and Plan Problem List: (1) Multi-vessel coronary artery stenosis ICD Codes: I25.10 - Atherosclerotic heart disease of [place] coronary artery without angina pectoris (2) Unstable angina ICD Codes: I20.0 - Unstable angina Status: Acute (3) Coronary arteriosclerosis ICD Codes: I25.10 - Coronary arteriosclerosis Status: Acute (4) Hypertension ICD Codes: I10 - Hypertension Status: Acute (5) Parkinsons ICD Codes: G20 - Parkinson's disease Status: Chronic Assessment and Plan 1) MVCAD s/p CABGx4 POD #2 WHATLEY to LAD SVG to OM1 SVG to OM2 SVG to PDA 2) No Lopressor pre-op due to baseline bradycardia Previously on Bystolic, will hold for hypotension 3) EF 60-65% by echo 4) Anemia Post-op Transfused 2 units PRBC, plan for another today 5) Wean Aleksandr as possible 6) Con't ASA 7) Cortisol level random low today, started on steroids per critical care Problem Qualifiers (1) Hypertension: Qualified Codes: I10 - Essential (primary) hypertension Aquiles Escamilla DO Apr 16, 2017 14:28
--- NOTE | 2017-04-16 14:58 | PD.CAR.PN ---
CVT Progress Note Subjective/Hospital Course: 71/ female hx of CAD/ stent x 3 2007 LAD, and 2 RCA recurrent chest pain, transferred from [facility], underwent cardiac cath by Dr Escamilla 90% LAD, 50 % Diagonal, 80% OM, 90% RCA EF 60% PMH: CAD HLP, HTN, Osteoarthritis, Osteoporosis , questionable Parkinson's on Sinemet ( follows with Dr Covarrubias) , hypothyroidism 04/11 pt had small amount of chest pain last pm and recurrent this afternoon / Nitro sl prn , started on Nitro paste for surgery on Friday remains on Heparin gtt 04/15/17 c/o fatigue, dizzy. 04/16 unable to wean off Aleksandr since surgery, remained hypotensive despite 2 units of PRBC yesterday HGB now 7.5, additional one unit PRBC today cortisol levl 11, started on stress dose steroids TSH 7, levothyroxine increased narcotics decreased limited ECHO EF 60% no pericardial effusion Objective: GENERAL: SKIN: Warm and dry. prevena dressing to chest , incision intact left leg, BRIANNA drain removed HEAD: Normocephalic. EYES: No scleral icterus. No injection or drainage. NECK: Supple, trachea midline. No JVD or lymphadenopathy. CARDIOVASCULAR: Regular rate and rhythm without murmurs, gallops, or rubs. RESPIRATORY: Breath sounds equal bilaterally. No accessory muscle use. chest tube to wall suction, no air leak, drained 330cc/ 12 hrs GASTROINTESTINAL: Abdomen soft, non-tender, nondistended. MUSCULOSKELETAL: No cyanosis, or edema. BACK: Nontender without obvious deformity. No CVA tenderness. Vital Signs Date Time Temp Pulse Resp B/P (MAP) Pulse Ox O2 Delivery O2 Flow Rate FiO2 04/16/17 13:26 98.2 64 16 101/62 95 04/16/17 11:00 97 Nasal Cannula 4.00 04/16/17 11:00 64 04/16/17 11:00 97.8 66 16 102/58 (73) 97 Arterial Line 04/16/17 11:00 64 04/16/17 07:00 99 Nasal Cannula 4.00 04/16/17 07:00 98.7 64 16 83/55 (64) 99 04/16/17 07:00 68 04/16/17 03:00 98 Nasal Cannula 4.00 04/16/17 03:00 60 04/16/17 03:00 97.9 60 18 92/55 (67) 98 95/55 (68) 04/16/17 03:00 60 04/15/17 23:00 89 04/15/17 23:00 89 04/15/17 23:00 96 Nasal Cannula 5.00 04/15/17 23:00 98.2 90 18 91/56 (68) 96 97/58 (71) 04/15/17 20:05 95 21 04/15/17 19:05 18 04/15/17 19:00 93 Nasal Cannula 4.00 04/15/17 19:00 89 04/15/17 19:00 89 04/15/17 19:00 98.4 89 18 97/50 (66) 94 102/58 (73) 04/15/17 15:30 95 21 04/15/17 15:00 95 Room Air 04/15/17 15:00 95 21 04/15/17 15:00 89 04/15/17 15:00 89 04/15/17 15:00 98.2 89 16 73/65 (68) 95 94/57 (69) Labs: Laboratory Tests Test 04/16/17 07:40 04/16/17 08:50 White Blood Count 12.0 TH/MM3 (4.0-11.0) Red Blood Count 2.55 MIL/MM3 (4.00-5.30) Hemoglobin 7.5 GM/DL (11.6-15.3) Hematocrit 22.2 % (35.0-46.0) Mean Corpuscular Volume 87.3 FL (80.0-100.0) Mean Corpuscular Hemoglobin 29.4 PG (27.0-34.0) Mean Corpuscular Hemoglobin Concent 33.6 % (32.0-36.0) Red Cell Distribution Width 21.8 % (11.6-17.2) Platelet Count 90 TH/MM3 (150-450) Mean Platelet Volume 9.2 FL (7.0-11.0) Blood Urea Nitrogen 15 MG/DL (7-18) Creatinine 0.72 MG/DL (0.50-1.00) Random Glucose 110 MG/DL (74-106) Total Protein 4.7 GM/DL (6.4-8.2) Albumin 2.6 GM/DL (3.4-5.0) Calcium Level 7.9 MG/DL (8.5-10.1) Alkaline Phosphatase 57 U/L (45-117) Aspartate Amino Transf (AST/SGOT) 36 U/L (15-37) Alanine Aminotransferase (ALT/SGPT) 13 U/L (10-53) Total Bilirubin 0.5 MG/DL (0.2-1.0) Sodium Level 142 MEQ/L (136-145) Potassium Level 4.3 MEQ/L (3.5-5.1) Chloride Level 113 MEQ/L (98-107) Carbon Dioxide Level 22.3 MEQ/L (21.0-32.0) Anion Gap 7 MEQ/L (5-15) Estimat Glomerular Filtration Rate 80 ML/MIN (>89) Thyroid Stimulating Hormone 3rd Gen 7.220 uIU/ML (0.358-3.740) Random Cortisol 11.0 MCG/DL Result Diagram: 04/16/1740 04/16/17 0740 Telemetry: NSR , no longer A paced (1) Multi-vessel coronary artery stenosis Plan: on ASA, intolerant to statins , no BP meds, wean Aleksandr gtt as tolerated on stress dose steroids thyroid med increased pulm toileting (2) Unstable angina (3) Coronary arteriosclerosis (4) Hypertension Plan: BP meds held (5) Parkinsons Plan: on Sinemet / dose decrease 2/2 hypotension Cymbalta also held (6) Blood loss anemia Plan: s/p 3 units PRBC f/u labs in am Problem Qualifiers (1) Hypertension: Qualified Codes: I10 - Essential (primary) hypertension Rebecca House Apr 16, 2017 14:58
[2017-04-16] MEDS: HYDROCORTISONE SOD SUCCINATE 100 MG VIAL IV SCH ×2 (16:38→21:11)
[2017-04-16] MEDS: RESP: ALBUTEROL 2.5 MG/IPRATROPIUM 0.5 MG NEB (SCH) NEB ×2 (17:32→21:29)
[2017-04-16] MEDS ORDERED: diphenhydrAMINE HCL 25 MG CAP PO PRN (19:15)
[2017-04-17] VITALS (16 sets, daily range): BP systolic 122–153; BP diastolic 65–92; PULSE 72–95; RESP 16–20; TEMP 97.9–98.5; O2SAT 90–99
[2017-04-17] MEDS: INDIVIDUALIZED INSULIN NOVOLOG SUPPLEMENTAL SCALE SQ SCH ×3 (02:04→10:18)
[2017-04-17] MEDS: RESP: ALBUTEROL 2.5 MG/IPRATROPIUM 0.5 MG NEB (SCH) NEB ×4 (03:37→20:03)
[2017-04-17 05:11] LABS: AUTOMATED NEUTROPHIL # 8.5 TH/MM3 (1.8-7.7); BASOPHIL % 0.1 % (0.0-2.0); HEMATOCRIT 25.2 % (35.0-46.0); LYMPH % 11.2 % (9.0-44.0); LYMPHOCYTE # 1.2 TH/MM3 (1.0-4.8); MEAN CELL VOLUME 87.9 FL (80.0-100.0); MEAN CORPUSCULAR HEMOGLOBIN 30.2 PG (27.0-34.0); MEAN CORPUSCULAR HGB CONC 34.4 % (32.0-36.0); MONO % 8.2 % (0.0-8.0); NEUT % 80.5 % (16.0-70.0); PLATELET COUNT 87 TH/MM3 (150-450); RED BLOOD COUNT 2.86 MIL/MM3 (4.00-5.30); RED CELL DISTRIBUTION WIDTH 19.5 % (11.6-17.2); WHITE BLOOD COUNT 10.6 TH/MM3 (4.0-11.0)
[2017-04-17 05:17] LABS: HEMO FLAGS AUTO DIFF
[2017-04-17] MEDS: HYDROCORTISONE SOD SUCCINATE 100 MG VIAL IV SCH ×4 (05:35→21:33)
[2017-04-17] MEDS: PANTOPRAZOLE SOD 40 MG DELAYED RELEASE TAB PO SCH (05:35)
[2017-04-17 05:36] LABS: ALKALINE PHOSPHATASE 109 U/L (45-117); ALT (GPT) 27 U/L (10-53); ANION GAP 8 MEQ/L (5-15); AST (GOT) 49 U/L (15-37); BICARBONATE 23.6 MEQ/L (21.0-32.0); BLOOD UREA NITROGEN 13 MG/DL (7-18); CHLORIDE 112 MEQ/L (98-107); GLOMERULAR FILTRATION RATE 101 ML/MIN (>89); MAGNESIUM 1.8 MG/DL (1.5-2.5); POTASSIUM 3.4 MEQ/L (3.5-5.1); SODIUM (NA) 144 MEQ/L (136-145); TOTAL BILIRUBIN ADULT 0.7 MG/DL (0.2-1.0)
[2017-04-17] MEDS: LEVOTHYROXINE SODIUM 50 MCG TAB PO SCH (05:36)
[2017-04-17] MEDS: MIDODRINE 5 MG TAB PO SCH (06:20)
[2017-04-17 06:45] LABS: BANDS 7 % (0-6); METAMYELOCYTES 1 % (0-1); NEUTROPHIL # MANUAL DIFF 8.7 TH/MM3 (1.8-7.7); POLYS (SEG NEUTROPHILS) 74 % (16-70); SCAN/DIFF FINAL DIFF MANUAL; WBC DIFF SAMPLE 100
[2017-04-17 06:46] LABS: PLATELET ESTIMATE SMEAR LOW (NORMAL); PLATELET MORPHOLOGY NORMAL (NORMAL)
[2017-04-17 06:48] LABS: ACANTHOCYTES OCC (NORMAL); SPHEROCYTES OCC (NORMAL)
--- NOTE | 2017-04-17 07:19 | HHI.CCPN ---
Subjective Remarks/Hospital Course A 71-year-old female admitted with acute coronary syndrome/unstable angina. Patient has history of coronary artery disease, stents placed in the past by Dr. Salcido in 2006, a stent to the mid LAD and two stents to the right coronary artery. This admission underwent cardiac cath by Dr. Escamilla which showed left main disease at 10%, proximal LAD 90%, mid distal 80%, diagonal 50%, the circ 20%, the OM 80%, the RCA 90%. The 2-D echo showed normal EF. Underwent CABG x 4 on 04/14/17 (WHATLEY to LAD SVG to OM1, OM2, PDA). Critical care medicine was consulted today for persistent postoperative hypotension which is symptomatic. Patient does not have a history of hypotension, but had been hypertensive in the past. She is requiring 20-40 mcg/m Aleksandr-Synephrine to keep map above 60-65. CT surgery had held Sinemet from today as it could cause hypotension. Due to risk of developing neuroleptic malignant syndrome with abrupt discontinuation of Sinemet, I have recommended dose reduction from 5 tablets of 25/100 Sinemet a day to 3 tablets and gradually wean off. I have requested a stat cortisol level and TSH. TSH came back at 7.22, and Synthroid was increased to 50 g from 25. Cortisol level came back at 11 which is indicating relative adrenal insufficiency. Level is low for patient who remains hypotensive on pressors. For hemoglobin of 7.5 will give 1 unit of PRBC. Started on midodrine 5 mg by mouth 3 times a day. Discussed plan with CT STEAM TENDER Criselda House SUBJ 04/17: Good response to stress dose steroid. SBP 130s. Holding Midodrine- will DC today. Objective Vital Signs Date Time Temp Pulse Resp B/P (MAP) Pulse Ox O2 Delivery O2 Flow Rate FiO2 04/17/17 03:00 98.0 87 16 131/87 (102) 99 04/17/17 03:00 Nasal Cannula 2.00 04/15/17 20:05 21 Intake and Output 04/17/17 04/17/17 04/18/17 08:00 16:00 00:00 Intake Total 230 ml Output Total 2005 ml Balance -1775 ml Result Diagram: 04/17/1742904/17/17 043 Imaging Chest x-ray shows mild right-sided LL infiltrate Objective Remarks GENERAL: This is a well-nourished, well-developed patient, in no apparent distress. Lying in bed SKIN: Cool and dry. HEAD: Atraumatic. Normocephalic. No temporal or scalp tenderness. EYES: Pupils equal round and reactive. ENT: Airway patent. NECK: Trachea midline. No JVD or lymphadenopathy. Supple, nontender, no meningeal signs. CARDIOVASCULAR: Regular rate and rhythm without murmurs, gallops, or rubs. Midline CABG dressing clean dry RESPIRATORY: Clear to auscultation. Breath sounds equal bilaterally. L chest tube with 630 ml serosanguineous output GASTROINTESTINAL: Abdomen soft, non-tender, nondistended. NEUROLOGICAL: Awake and alert. Motor and sensory grossly within normal limits. Five out of 5 muscle strength in all muscle groups. Mild intermittent expressive aphasia A/P Assessment and Plan ASSESSMENT: Symptomatic hypotension Relative adrenal insufficiency Status post CABG 4 on 04/14/17 Coronary artery disease Hyperlipidemia Hypertension Movement disorder, possible Parkinson's Hypothyroidism PLAN (system regan) NEURO: - Tylenol, Percocet for pain - Sinemet 25/100 reduced to 3 tabs daily in divided doses. Ok to increase back to 5 tabs daily, avoid abrupt cessation due to risk of NMS - Hold Cymbalta RESP: - Nasal cannula oxygen - DuoNeb every 6 hours scheduled and when necessary - Chest tube with 630 mL serosanguineous in 24 hours. Management per CTS CV: - Random cortisol at 8:30 AM was 11. Indicates relative adrenal insufficiency in the setting of hypotension and pressor use - Stress dose hydrocortisone 100 mg x1 on 04/16/17nd 50 mg IV q6 - Continue 50 q6 for 3 days, 50 q12 for 3days and stop. If she becomes hypotensive, will need usp taper - Holding all antihypertensives. DC Midrin 5 mg by mouth every 8 hours 04/17/17 - Continue aspirin GI: - Continue heart healthy diet : - Monitor renal function closely. ID: - There is no evidence of sepsis. Check UA, sputum and blood culture - No antibiotics at this time HEME: - Monitor CBC, CMP, coags ENDO: - Electrolyte replacement protocol - Increased Synthroid to 50 g daily, repeat TSH in 4-6 weeks PROPH: - Bilateral lower extremity SCDs. Hold off chemical DVT prophylaxis due to high output from chest tube serosanguineous Level2 CCM will sign off. Reconsult if needed. Discussed with LEATHA Kurtz Sinoj K. MD Apr 17, 2017 07:19
[2017-04-17] MEDS: ASPIRIN 81 MG CHEW TAB PO SCH (09:06)
[2017-04-17] MEDS: CARBIDOPA/LEVODOPA 25 MG/100 MG TAB PO SCH ×2 (09:06→21:32)
[2017-04-17] MEDS: LACTOBACILLUS ACIDOPHILUS TAB PO SCH ×3 (09:07→17:06)
[2017-04-17] MEDS: SODIUM CHLORIDE 0.9% FLUSH 10 ML FLUSH IV FLUSH SCH ×2 (09:07→21:33)
[2017-04-17] MEDS ORDERED: GLUCAGON 1 MG/ML VIAL OTHER PRN (09:30)
[2017-04-17] MEDS ORDERED: FUROSEMIDE 20 MG/2 ML VIAL IV PUSH ONE (09:30)
[2017-04-17] MEDS ORDERED: BISACODYL 10 MG SUPP RECTAL PRN (09:30)
[2017-04-17] MEDS ORDERED: SOD PHOSPHATE/SOD BIPHOSPHATE (ADULT) ENEMA 133ML RECTAL PRN (09:30)
[2017-04-17] MEDS ORDERED: DEXTROSE 50% IN WATER 50 ML VIAL(D50) IV PUSH PRN (09:30)
--- NOTE | 2017-04-17 10:33 | PD.CARD.PN ---
Subjective Subjective Remarks Doing much better today Up to the chair, ambulated without syncope/pre-syncope Off Aleksandr Objective Medications Current Medications Medications (Trade) Dose Ordered Sig/Andrew Route Start Time Stop Time Status Last Admin (Doretha Seaman) 60 mg HS PO 04/09/17 21:00 Future Hold 04/15/17 20:30 (NS Flush) 2 ml BID IV FLUSH 04/10/17 21:00 04/17/17 09:07 (NS Flush) 2 ml UNSCH PRN IV FLUSH 04/10/17 16:45 04/14/17 23:31 (Tylenol) 650 mg Q4H PRN PO 04/13/17 07:30 (Lactinex) 1 tab TID PO 04/13/17 13:00 04/17/17 09:07 Lactated Ringer's 500 ml @ 500 mls/hr Q1H PRN IV 04/14/17 11:48 (Aspirin Chew) 81 mg DAILY PO 04/15/17 09:00 04/17/17 09:06 (Protonix) 40 mg DAILY@06 PO 04/15/17 06:00 04/17/17 05:35 (Tylenol) 650 mg Q4H PRN PO 04/14/17 12:00 (Percocet 5-325 Mg) 1 tab Q3H PRN PO 04/14/17 12:00 04/16/17 11:28 (Zofran Inj) 4 mg Q6H PRN IV PUSH 04/14/17 12:00 (KCl) 20 meq UNSCH PRN PO 04/14/17 12:00 (D50w (Vial) Inj) 50 ml UNSCH PRN IV PUSH 04/14/17 12:00 04/15/17 02:44 (Duoneb Neb) 1 ampule Q2HR NEB PRN NEB 04/14/17 12:00 04/14/17 21:40 (D50w (Vial) Inj) 50 ml UNSCH PRN IV PUSH 04/15/17 11:15 (Glucagon Inj) 1 mg UNSCH PRN OTHER 04/15/17 11:15 (NovoLOG SUPPLEMENTAL SCALE) 1 Q4H SQ 04/15/17 14:00 04/17/17 10:18 (Synthroid) 50 mcg DAILY@0600 PO 04/17/17 06:00 04/17/17 05:36 (Sinemet 25-100 Mg) 1 tab Q12HR PO 04/16/17 09:30 04/17/17 09:06 (SoluCORTEF INJ) 50 mg Q6H IV 04/16/17 16:00 04/17/17 09:07 (Duoneb Neb) 1 ampule Q6HR NEB NEB 04/16/17 11:00 04/17/17 09:19 (Benadryl) 25 mg HS PRN PO 04/16/17 19:15 04/16/17 21:11 (Theragran M Tab) 1 tab DAILY PO 04/17/17 09:30 UNV (Lasix Inj) 20 mg ONCE ONCE IV PUSH 04/17/17 09:30 04/17/17 09:31 UNV (K-Phos) 500 mg Q12HR PO 04/17/17 09:30 UNV (KCl) 10 meq ONCE ONCE PO 04/17/17 09:30 04/17/17 09:31 UNV (Duoneb Neb) 1 ampule Q6HR WHILE AWAKE NEB NEB 04/17/17 14:00 04/19/17 13:59 UNV (Colace) 100 mg BID PO 04/17/17 09:30 UNV (Theragran M Tab) 1 tab DAILY PO 04/18/17 09:00 UNV (Milk Of Magnesia Liq) 30 ml DAILY PO 04/17/17 09:30 UNV (Dulcolax Supp) 10 mg UNSCH PRN RECTAL 04/17/17 09:30 UNV (Miralax) 17 gm DAILY PO 04/17/17 09:30 UNV (Senokot) 8.6 mg HS PO 04/17/17 21:00 UNV (Fleets Enema (Adult)) 133 ml UNSCH PRN RECTAL 04/17/17 09:30 UNV (NovoLOG SUPPLEMENTAL SCALE) 1 ACHS SQ 04/17/17 12:00 UNV (D50w (Vial) Inj) 50 ml UNSCH PRN IV PUSH 04/17/17 09:30 UNV (Glucagon Inj) 1 mg UNSCH PRN OTHER 04/17/17 09:30 UNV Vital Signs / I&O Vital Signs Date Time Temp Pulse Resp B/P (MAP) Pulse Ox O2 Delivery O2 Flow Rate FiO2 04/17/17 09:20 95 Nasal Cannula 2.00 04/17/17 07:00 76 04/17/17 07:00 97.9 76 18 153/92 (112) 91 04/17/17 07:00 91 Nasal Cannula 2.00 04/17/17 03:00 98.0 87 16 131/87 (102) 99 04/17/17 03:00 81 04/17/17 03:00 Nasal Cannula 2.00 04/16/17 23:00 98.9 70 14 154/89 (110) 95 04/16/17 23:00 71 04/16/17 23:00 Nasal Cannula 2.00 04/16/17 21:29 Nasal Cannula 2.00 04/16/17 19:00 Nasal Cannula 2.00 04/16/17 19:00 97.6 67 16 112/81 (91) 96 04/16/17 19:00 67 04/16/17 15:00 99 Nasal Cannula 4.00 04/16/17 15:00 60 04/16/17 15:00 61 04/16/17 15:00 98.4 61 16 109/67 (81) 99 04/16/17 13:26 98.2 64 16 101/62 95 04/16/17 11:00 97 Nasal Cannula 4.00 04/16/17 11:00 64 04/16/17 11:00 97.8 66 16 102/58 (73) 97 Arterial Line 04/16/17 11:00 64 I/O 04/16/17 04/16/17 04/16/17 04/17/17 04/17/17 04/17/17 06:59 14:59 22:59 06:59 14:59 22:59 Intake Total 497 ml 760 ml 480 ml 230 ml Output Total 733 ml 1005 ml 2005 ml Balance -236 ml 760 ml -525 ml -1775 ml Intake Oral 220 ml 480 ml 230 ml IV Total 277 ml 110 ml Packed Cells 400 ml Blood Product IV Normal Saline Flush 250 ml Output Urine Total 400 ml 725 ml 1655 ml Chest Tube Drainage Total 330 ml 280 ml 350 ml Drainage Total 3 ml 0 ml # Bowel Movements 0 0 Physical Exam GENERAL: NAD, AAOx3 SKIN: Warm and dry. HEAD: Atraumatic. Normocephalic. EYES: Pupils equal and round. No scleral icterus. No injection or drainage. ENT: No nasal bleeding or discharge. Mucous membranes pink and moist. NECK: Trachea midline. No JVD. CARDIOVASCULAR: Regular rate and rhythm. Sternotomy with wound vac RESPIRATORY: No accessory muscle use. Clear to auscultation. Breath sounds equal bilaterally. GASTROINTESTINAL: Abdomen soft, non-tender, nondistended. Hepatic and splenic margins not palpable. MUSCULOSKELETAL: Extremities without clubbing, cyanosis, or edema. No obvious deformities. Right groin with mild ecchymosis, soft, non-tender. Distal pulses intact NEUROLOGICAL: Awake and alert. No obvious cranial nerve deficits. Motor grossly within normal limits. Five out of 5 muscle strength in the arms and legs. Normal speech. PSYCHIATRIC: Appropriate mood and affect; insight and judgment normal. Laboratory Laboratory Tests Test 04/17/17 04:30 White Blood Count 10.6 TH/MM3 Red Blood Count 2.86 MIL/MM3 Hemoglobin 8.7 GM/DL Hematocrit 25.2 % Mean Corpuscular Volume 87.9 FL Mean Corpuscular Hemoglobin 30.2 PG Mean Corpuscular Hemoglobin Concent 34.4 % Red Cell Distribution Width 19.5 % Platelet Count 87 TH/MM3 Mean Platelet Volume 9.5 FL Neutrophils (%) (Auto) 80.5 % Lymphocytes (%) (Auto) 11.2 % Monocytes (%) (Auto) 8.2 % Eosinophils (%) (Auto) 0.0 % Basophils (%) (Auto) 0.1 % Neutrophils # (Auto) 8.5 TH/MM3 Lymphocytes # (Auto) 1.2 TH/MM3 Monocytes # (Auto) 0.9 TH/MM3 Eosinophils # (Auto) 0.0 TH/MM3 Basophils # (Auto) 0.0 TH/MM3 CBC Comment AUTO DIFF Differential Total Cells Counted 100 Neutrophils % (Manual) 74 % Band Neutrophils % 7 % Lymphocytes % 13 % Monocytes % 5 % Neutrophils # (Manual) 8.7 TH/MM3 Metamyelocytes 1 % Differential Comment FINAL DIFF MANUAL Platelet Estimate LOW Platelet Morphology Comment NORMAL Basophilic Stippling FAINT Spherocytes OCC Acanthocytes OCC Blood Urea Nitrogen 13 MG/DL Creatinine 0.59 MG/DL Random Glucose 119 MG/DL Total Protein 5.2 GM/DL Albumin 2.7 GM/DL Calcium Level 8.6 MG/DL Phosphorus Level 1.7 MG/DL Magnesium Level 1.8 MG/DL Alkaline Phosphatase 109 U/L Aspartate Amino Transf (AST/SGOT) 49 U/L Alanine Aminotransferase (ALT/SGPT) 27 U/L Total Bilirubin 0.7 MG/DL Sodium Level 144 MEQ/L Potassium Level 3.4 MEQ/L Chloride Level 112 MEQ/L Carbon Dioxide Level 23.6 MEQ/L Anion Gap 8 MEQ/L Estimat Glomerular Filtration Rate 101 ML/MIN Assessment and Plan Problem List: (1) Multi-vessel coronary artery stenosis ICD Codes: I25.10 - Atherosclerotic heart disease of inupiat coronary artery without angina pectoris (2) Unstable angina ICD Codes: I20.0 - Unstable angina Status: Acute (3) Coronary arteriosclerosis ICD Codes: I25.10 - Coronary arteriosclerosis Status: Acute (4) Hypertension ICD Codes: I10 - Hypertension Status: Acute (5) Parkinsons ICD Codes: G20 - Parkinson's disease Status: Chronic (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
[2017-04-17] MEDS: DOCUSATE SODIUM 100 MG CAP PO SCH ×2 (11:45→21:33)
[2017-04-17 11:46] LABS: BLOOD, URINE NEG (NEG); COMMENT (UR) CATH-CULT NOT IND; CULTURE IF INDICATED CATH CULTURE NOT IND; GLUCOSE,URINE NEG (NEG); KETONE, URINE NEG (NEG); MUCUS URINE FEW /lpf (OCC); NITRITE,URINE NEG (NEG); PH, URINE 5.5 (5.0-8.5); URINE COLOR YELLOW (YELLW/STRAW)
[2017-04-17] MEDS: POLYETHYLENE GLYCOL 17 GM PKG PO SCH (11:50)
[2017-04-17] MEDS: POTASSIUM PHOSPHATE MONOBASIC 500 MG TAB PO SCH ×2 (11:50→21:32)
[2017-04-17] MEDS: MAGNESIUM HYDROXIDE SUSP 30 ML CUP PO SCH (11:50)
[2017-04-17] MEDS ORDERED: POTASSIUM CHLORIDE 10 MEQ CONTROLLED RELEASE TAB PO ONE (12:00)
[2017-04-17] MEDS: INSULIN ASPART SUPPLEMENTAL SCALE SQ SCH ×3 (12:00→21:47)
[2017-04-17] MEDS: ACETAMINOPHEN 325 MG TAB PO PRN ×2 (13:21→19:50)
[2017-04-17] MEDS: MULTIVITAMINS/MINERALS THERAPEUTIC TAB PO SCH (13:21)
--- NOTE | 2017-04-17 16:44 | PD.CAR.PN ---
CVT Progress Note Subjective/Hospital Course: 71/ female hx of CAD/ stent x 3 2007 LAD, and 2 RCA recurrent chest pain, transferred from [place], underwent cardiac cath by Dr Escamilla 90% LAD, 50 % Diagonal, 80% OM, 90% RCA EF 60% PMH: CAD HLP, HTN, Osteoarthritis, Osteoporosis , questionable Parkinson's on Sinemet ( follows with Dr Covarrubias) , hypothyroidism 04/11 pt had small amount of chest pain last pm and recurrent this afternoon / Nitro sl prn , started on Nitro paste for surgery on Friday remains on Heparin gtt 04/15/17 c/o fatigue, dizzy. 04/16 unable to wean off Aleksandr since surgery, remained hypotensive despite 2 units of PRBC yesterday HGB now 7.5, additional one unit PRBC today cortisol levl 11, started on stress dose steroids TSH 7, levothyroxine increased narcotics decreased limited ECHO EF 60% no pericardial effusion 04/17 BP improved, slowly wean stress dose steroids slowly increase Sinemet, midodrine dc resume cymbalta in am HGB stable gentle diuresis , aggressive pulm toileting Objective: Vital Signs Date Time Temp Pulse Resp B/P (MAP) Pulse Ox O2 Delivery O2 Flow Rate FiO2 04/17/17 16:00 95 04/17/17 15:00 91 Nasal Cannula 2.00 04/17/17 15:00 91 19 134/74 (94) 91 04/17/17 15:00 91 04/17/17 14:30 19 04/17/17 14:00 79 04/17/17 13:00 90 Nasal Cannula 2.00 04/17/17 13:00 83 19 149/82 (104) 90 04/17/17 13:00 82 04/17/17 11:00 92 Nasal Cannula 2.00 04/17/17 11:00 84 04/17/17 11:00 98.1 84 18 127/80 (96) 92 04/17/17 09:20 95 Nasal Cannula 2.00 04/17/17 07:00 76 04/17/17 07:00 97.9 76 18 153/92 (112) 91 04/17/17 07:00 91 Nasal Cannula 2.00 04/17/17 03:00 98.0 87 16 131/87 (102) 99 04/17/17 03:00 81 04/17/17 03:00 Nasal Cannula 2.00 04/16/17 23:00 98.9 70 14 154/89 (110) 95 04/16/17 23:00 71 04/16/17 23:00 Nasal Cannula 2.00 04/16/17 21:29 Nasal Cannula 2.00 04/16/17 19:00 Nasal Cannula 2.00 04/16/17 19:00 97.6 67 16 112/81 (91) 96 04/16/17 19:00 67 Labs: Laboratory Tests Test 04/17/17 10:00 Urine Color YELLOW (YELLW/STRAW) Urine Turbidity CLEAR (CLEAR) Urine pH 5.5 (5.0-8.5) Urine Specific [place] 1.011 (1.002-1.035) Urine Protein NEG mg/dL (NEG-TRACE) Urine Glucose (UA) NEG mg/dL (NEG) Urine Ketones NEG mg/dL (NEG) Urine Occult Blood NEG (NEG) Urine Nitrite NEG (NEG) Urine Bilirubin NEG (NEG) Urine Urobilinogen LESS THAN 2.0 MG/DL (LESS Urine Leukocyte Esterase NEG (NEG) Urine RBC LESS THAN 1 /hpf (0-3) Urine WBC 1 /hpf (0-5) Urine Mucus FEW /lpf (OCC) Microscopic Urinalysis Comment CATH-CULT NOT IND Result Diagram: 04/17/1742904/17/17429 (1) Multi-vessel coronary artery stenosis Plan: on ASA, intolerant to statins , no BP meds, wean Aleksandr gtt as tolerated on stress dose steroids thyroid med increased pulm toileting (2) Unstable angina (3) Coronary arteriosclerosis (4) Hypertension Plan: BP meds held (5) Parkinsons Plan: on Sinemet / dose decrease Cymbalta resume in am (6) Blood loss anemia Plan: s/p 3 units PRBC f/u labs in am (7) Electrolyte imbalance Plan: replace K+ phos (8) Postoperative hypotension Plan: resolved post blood infusion off midodrine wean stress dose steroids Problem Qualifiers (1) Hypertension: Qualified Codes: I10 - Essential (primary) hypertension Rebecca House Apr 17, 2017 16:44
--- NOTE | 2017-04-17 16:50 | HHI.FF ---
Face to Face Verification Diagnosis: (1) S/P CABG x 4 (2) Blood loss anemia (3) Coronary arteriosclerosis (4) Hypothyroidism Home Health Nursing Order: Signs/symptoms of disease process Medication education-adverse effect Wound care and dressing changes Nursing assessment with vital signs Instructions: Heart and Vascular Surgery patients *Special attention to sternal dressing Mandatory frequency Assess and evaluation, 4 days in a row The next week 3X week 2 times a week for 4 weeks 1 time a week for 5 weeks Schedule Heart and Vascular patients for full 60 day certification period Initial visit Review Open Heart Surgery Discharge Instructions (Sternal precautions, Activity, Elastic hose, Incision care, Driving, Incentive spirometry, Smoking, Jag[place], Work and other) Need Betadine to paint incision Medication reconciliation Importance of follow up care/ check on appointments Make calendar record temperature daily When to call [facility] [place] nurse, review instructions, phone list Incentive Spirometry, demonstration Visit 1- Begin discharge instruction for patient family and/ or caregiver using teach back method- Signs and symptoms of infection Disease characteristics Medicines and side effects Foods and nutrition/ appetite Infection control/ hand washing/ hygiene Visit 2- Continue teaching Discharge instructions- include additional information on smoking cessation , sternal dressing (sternal vac) Visit 3- Continue teaching- Cough and deep breathing, incision monitoring. Choose my plate Visit 4- Continue teaching- Discuss limitations Discuss how they are feeling Discuss progress toward goals Remaining visits- continue teaching and monitoring For any questions please call : Friday 8am-5pm Heart & Vascular Surgery Office ( Dr. Merchant & Dr. Garcia), After Hours / Nights (5pm -8am) Weekends and Holidays Please call [facility] Cardiac Intermediate Care Unit (CIC) Charge Nurse PREVENA Single Use Negative Wound Therapy System Caregiver Instruction Sheet 1. A Prevena dressing system was applied to the chest incision during surgery , to promote wound healing. It works via a suction device (negative pressure wound therapy) to remove low to moderate levels of exudate (drainage) and infectious materials. We recommend that the device stay in place for up to seven days, from day of surgery. 2. Day of Surgery___/03/23 Day of Removal ____04/21/17 3. The dressing should only be removed by a health care attendant. Please arrange removal of device to coincide with Home Health visit and or with Nursing staff at Rehab 4. If skin reddening or irritation of skin occurs, or excessive drainage, please notify the Cardiovascular Surgeons office at [phone]. 5. Light showering is permissible; however the pump should be disconnected and placed in safe location, where it will not get wet. The dressing should not be exposed to direct spray or submerged in water. No bath tub / shower only. Ensure the end of the tubing attached to the dressing is facing down so that water does not enter the top of the tube. 6. To remove Prevena dressing: press purple button to turn off device / remove the suction. Then disconnect the tubing from the pump. The fixation strips should be stretched away from the skin and the dressing lifted at one corner and peeled back until it has been fully removed. 7. After removal, it is ok to shower daily using liquid dial soap and clean wash cloth, rinse and pat dry, and leave incision open to air dry. For any concerns regarding Prevena dressing, and or wounds, please contact Paola Zuluaga, patient navigator at [phone] or notify the Cardiovascular Surgeons office at [phone]. Incentive spirometry Q1 hr x 10, while awake, also use acapella device hourly whole awake Sternal Breast Bone Precautions: NO pushing or pulling, ( pt must use sternal pillow to support chest with all activities and with coughing ( takes up to 3 months breast bone to heal ) All females to wear sternal bra , launder as needed Daily incision care: ok to shower daily, no tub bath. Wash all incisions with liquid dial soap, clean wash cloth to each site, rinse and pat dry. Observe for any signs of infection, such as drainage which is dark yellow, nagel, green or foul smelling. Immediately report to the surgeon any drainage from the chest incision, or legs, and for any abnormal drainage from the chest tube sites. Notify surgeon if any temp >101.5 degrees F. When specialty dressing removed/ or if you do not have one, continue to shower daily as above, then rinse and pat incision dry and paint with betadine daily x 5 days. Allow steri strips to fall off if you have any. Avoid lotions, creams, salves, oils, etc. for the first month Please see attached forms for additional instructions regarding post Open Heart specialty wound vacuum dressings. ARDEN or Prevena , Dressing to be removed by Nursing staff on __04/21/[address] Garcia patients , please obtain CBC, BMP, PA & Lat CXR in 2 weeks, results to Dr. Garcia ( prescription will be given) ( ) (Tele: [phone]) , F/U appointment: as per DC instructions: PCP in 2 weeks, CV surgeon 2 weeks, Farm Adviser 3-4 weeks For any questions regarding incisions/ dressing / meds / post op care or above Symptoms, Friday 8am-5pm Heart & Vascular Surgery Office ( Dr. Merchant & Dr. Garcia), After Hours / Nights (5pm -8am) Weekends and Holidays Please call [facility] Cardiac Intermediate Care Unit (CIC) Charge Nurse I have seen patient Analy Barton on 04/17/17. My clinical findings support the need for the requested home health care services because: Patient has SOB Deconditioned w/ increased weakness I certify that my clinical findings support that this patient is homebound because: Post-op weakness Rebecca House Apr 17, 2017 16:50
[2017-04-17] MEDS: SENNOSIDES 8.6 MG TAB PO SCH (21:32)
[2017-04-18] VITALS (27 sets, daily range): BP systolic 86–149; BP diastolic 52–90; PULSE 62–92; RESP 16–20; TEMP 97.9–98.5; O2SAT 92–96
[2017-04-18] MEDS: oxyCODONE/ACETAMINOPHEN 5 MG/325 MG TAB PO PRN ×2 (00:13→21:57)
[2017-04-18] MEDS: RESP: ALBUTEROL 2.5 MG/IPRATROPIUM 0.5 MG NEB (SCH) NEB (04:00)
[2017-04-18 04:53] LABS: MEAN CORPUSCULAR HEMOGLOBIN 30.3 PG (27.0-34.0); MEAN CORPUSCULAR HGB CONC 34.1 % (32.0-36.0); PLATELET COUNT 121 TH/MM3 (150-450); RED BLOOD COUNT 2.69 MIL/MM3 (4.00-5.30); RED CELL DISTRIBUTION WIDTH 19.6 % (11.6-17.2); REVIEW FLAG FINAL; WHITE BLOOD COUNT 8.3 TH/MM3 (4.0-11.0)
[2017-04-18 05:30] LABS: MAGNESIUM 2.2 MG/DL (1.5-2.5); POTASSIUM 3.8 MEQ/L (3.5-5.1)
[2017-04-18] MEDS: PANTOPRAZOLE SOD 40 MG DELAYED RELEASE TAB PO SCH (05:58)
[2017-04-18] MEDS: LEVOTHYROXINE SODIUM 50 MCG TAB PO SCH (05:58)
[2017-04-18] MEDS: HYDROCORTISONE SOD SUCCINATE 100 MG VIAL IV SCH ×3 (05:58→21:56)
[2017-04-18] MEDS: INSULIN ASPART SUPPLEMENTAL SCALE SQ SCH ×3 (08:00→21:00)
[2017-04-18] MEDS: ASPIRIN 81 MG CHEW TAB PO SCH (08:51)
[2017-04-18] MEDS: MULTIVITAMINS/MINERALS THERAPEUTIC TAB PO SCH (08:51)
[2017-04-18] MEDS: CARBIDOPA/LEVODOPA 25 MG/100 MG TAB PO SCH ×2 (08:51→18:01)
[2017-04-18] MEDS: POTASSIUM PHOSPHATE MONOBASIC 500 MG TAB PO SCH ×2 (08:51→21:57)
[2017-04-18] MEDS: DOCUSATE SODIUM 100 MG CAP PO SCH ×2 (08:52→21:56)
[2017-04-18] MEDS: LACTOBACILLUS ACIDOPHILUS TAB PO SCH ×2 (08:52→18:02)
[2017-04-18] MEDS: MAGNESIUM HYDROXIDE SUSP 30 ML CUP PO SCH (08:52)
[2017-04-18] MEDS: POLYETHYLENE GLYCOL 17 GM PKG PO SCH (08:52)
[2017-04-18] MEDS ORDERED: MULTIVITAMINS/MINERALS THERAPEUTIC TAB PO SCH (09:00)
[2017-04-18] MEDS ORDERED: FUROSEMIDE 40 MG/4 ML VIAL IV PUSH ONE (09:15)
[2017-04-18] MEDS ORDERED: POTASSIUM CHLORIDE 25 MEQ EFFERVESCENT TAB PO ONE (09:15)
[2017-04-18] MEDS ORDERED: POTASSIUM CHLORIDE 20 MEQ CONTROLLED RELEASE TAB PO ONE (09:15)
--- NOTE | 2017-04-18 09:21 | PD.CARD.PN ---
Subjective Subjective Remarks Doing much better today Up to the chair, ambulated without syncope/pre-syncope Off Aleksandr Telemetry showing a narrow complex tachycardia Objective Medications Current Medications Medications (Trade) Dose Ordered Sig/Andrew Route Start Time Stop Time Status Last Admin (Doretha Seaman) 60 mg HS PO 04/09/17 21:00 Future hold 04/15/17 20:30 (NS Flush) 2 ml BID IV FLUSH 04/10/17 21:00 04/17/17 21:33 (NS Flush) 2 ml UNSCH PRN IV FLUSH 04/10/17 16:45 04/14/17 23:31 (Tylenol) 650 mg Q4H PRN PO 04/13/17 07:30 04/17/17 19:50 (Lactinex) 1 tab TID PO 04/13/17 13:00 04/18/17 08:52 Lactated Ringer's 500 ml @ 500 mls/hr Q1H PRN IV 04/14/17 11:48 (Aspirin Chew) 81 mg DAILY PO 04/15/17 09:00 04/18/17 08:51 (Protonix) 40 mg DAILY@06 PO 04/15/17 06:00 04/18/17 05:58 (Tylenol) 650 mg Q4H PRN PO 04/14/17 12:00 (Percocet 5-325 Mg) 1 tab Q3H PRN PO 04/14/17 12:00 04/18/17 00:13 (Zofran Inj) 4 mg Q6H PRN IV PUSH 04/14/17 12:00 (KCl) 20 meq UNSCH PRN PO 04/14/17 12:00 (D50w (Vial) Inj) 50 ml UNSCH PRN IV PUSH 04/14/17 12:00 04/15/17 02:44 (Duoneb Neb) 1 ampule Q2HR NEB PRN NEB 04/14/17 12:00 04/14/17 21:40 (D50w (Vial) Inj) 50 ml UNSCH PRN IV PUSH 04/15/17 11:15 (Glucagon Inj) 1 mg UNSCH PRN OTHER 04/15/17 11:15 (Synthroid) 50 mcg DAILY@0600 PO 04/17/17 06:00 04/18/17 05:58 (Sinemet 25-100 Mg) 1 tab Q12HR PO 04/16/17 09:30 04/18/17 08:51 (Duoneb Neb) 1 ampule Q6HR NEB NEB 04/16/17 11:00 04/17/17 09:19 (Benadryl) 25 mg HS PRN PO 04/16/17 19:15 04/16/17 21:11 (Theragran M Tab) 1 tab DAILY PO 04/17/17 12:00 04/18/17 08:51 (K-Phos) 500 mg Q12HR PO 04/17/17 09:30 04/18/17 08:51 (Duoneb Neb) 1 ampule Q6HR WHILE AWAKE NEB NEB 04/17/17 14:00 04/19/17 13:59 04/17/17 20:03 (Colace) 100 mg BID PO 04/17/17 09:30 04/18/17 08:52 (Milk Of Magnesia Liq) 30 ml DAILY PO 04/17/17 09:30 04/18/17 08:52 (Dulcolax Supp) 10 mg UNSCH PRN RECTAL 04/17/17 09:30 (Miralax) 17 gm DAILY PO 04/17/17 09:30 04/18/17 08:52 (Senokot) 8.6 mg HS PO 04/17/17 21:00 04/17/17 21:32 (Fleets Enema (Adult)) 133 ml UNSCH PRN RECTAL 04/17/17 09:30 (NovoLOG SUPPLEMENTAL SCALE) 1 ACHS SQ 04/17/17 12:00 04/17/17 21:47 (D50w (Vial) Inj) 50 ml UNSCH PRN IV PUSH 04/17/17 09:30 (Glucagon Inj) 1 mg UNSCH PRN OTHER 04/17/17 09:30 (SoluCORTEF INJ) 50 mg Q8HR IV 04/17/17 22:00 04/18/17 05:58 (Lasix Inj) 40 mg ONCE ONCE IV PUSH 04/18/17 09:15 04/18/17 09:16 UNV (K-Lyte Cl Eff) 25 meq ONCE ONCE PO 04/18/17 09:15 04/18/17 09:16 UNV (KCl) 20 meq ONCE ONCE PO 04/18/17 09:15 04/18/17 09:16 UNV Vital Signs / I&O Vital Signs Date Time Temp Pulse Resp B/P (MAP) Pulse Ox O2 Delivery O2 Flow Rate FiO2 04/18/17 08:21 92 Nasal Cannula 21 04/18/17 07:45 98.2 67 18 149/89 (109) 96 04/18/17 07:45 96 Nasal Cannula 2.00 04/18/17 07:45 67 04/18/17 06:00 65 04/18/17 05:00 75 04/18/17 04:00 70 04/18/17 03:00 97.9 68 18 136/76 (96) 96 04/18/17 03:00 96 Nasal Cannula 2.00 04/18/17 03:00 66 04/18/17 02:00 68 04/18/17 01:17 16 04/18/17 01:00 68 04/18/17 00:00 76 04/17/17 23:00 93 Nasal Cannula 2.00 04/17/17 23:00 72 04/17/17 23:00 98.5 76 20 123/65 (84) 93 04/17/17 22:00 74 04/17/17 21:17 16 04/17/17 21:00 90 04/17/17 20:03 94 04/17/17 20:00 78 04/17/17 19:00 76 04/17/17 19:00 95 Nasal Cannula 2.00 04/17/17 19:00 98.0 76 18 122/76 (91) 95 04/17/17 18:03 78 04/17/17 17:00 83 04/17/17 16:00 95 04/17/17 15:00 91 Nasal Cannula 2.00 04/17/17 15:00 91 19 134/74 (94) 91 04/17/17 15:00 91 04/17/17 14:00 79 04/17/17 13:00 90 Nasal Cannula 2.00 04/17/17 13:00 83 19 149/82 (104) 90 04/17/17 13:00 82 04/17/17 11:00 92 Nasal Cannula 2.00 04/17/17 11:00 84 04/17/17 11:00 98.1 84 18 127/80 (96) 92 04/17/17 09:20 95 Nasal Cannula 2.00 I/O 04/17/17 04/17/17 04/17/17 04/18/17 04/18/17 04/18/17 07:00 15:00 23:00 07:00 15:00 23:00 Intake Total 230 ml 360 ml 600 ml Output Total 2005 ml 60 ml 50 ml Balance -1775 ml 300 ml 550 ml Intake Oral 230 ml 360 ml 600 ml Output Urine Total 1655 ml Chest Tube Drainage Total 350 ml 60 ml 50 ml # Voids 2 2 Physical Exam GENERAL: NAD, AAOx3 SKIN: Warm and dry. HEAD: Atraumatic. Normocephalic. EYES: Pupils equal and round. No scleral icterus. No injection or drainage. ENT: No nasal bleeding or discharge. Mucous membranes pink and moist. NECK: Trachea midline. No JVD. CARDIOVASCULAR: Regular rate and rhythm. Sternotomy with wound vac RESPIRATORY: No accessory muscle use. Clear to auscultation. Breath sounds equal bilaterally. GASTROINTESTINAL: Abdomen soft, non-tender, nondistended. Hepatic and splenic margins not palpable. MUSCULOSKELETAL: Extremities without clubbing, cyanosis, or edema. No obvious deformities. NEUROLOGICAL: Awake and alert. No obvious cranial nerve deficits. Motor grossly within normal limits. Five out of 5 muscle strength in the arms and legs. Normal speech. PSYCHIATRIC: Appropriate mood and affect; insight and judgment normal. Laboratory Laboratory Tests Test 04/17/17 10:00 04/18/17 04:20 Urine Color YELLOW Urine Turbidity CLEAR Urine pH 5.5 Urine Specific [place] 1.011 Urine Protein NEG mg/dL Urine Glucose (UA) NEG mg/dL Urine Ketones NEG mg/dL Urine Occult Blood NEG Urine Nitrite NEG Urine Bilirubin NEG Urine Urobilinogen LESS THAN 2.0 MG/DL Urine Leukocyte Esterase NEG Urine RBC LESS THAN 1 /hpf Urine WBC 1 /hpf Urine Mucus FEW /lpf Microscopic Urinalysis Comment CATH-CULT NOT IND White Blood Count 8.3 TH/MM3 Red Blood Count 2.69 MIL/MM3 Hemoglobin 8.2 GM/DL Hematocrit 24.0 % Mean Corpuscular Volume 89.0 FL Mean Corpuscular Hemoglobin 30.3 PG Mean Corpuscular Hemoglobin Concent 34.1 % Red Cell Distribution Width 19.6 % Platelet Count 121 TH/MM3 Mean Platelet Volume 9.1 FL Blood Urea Nitrogen 17 MG/DL Creatinine 0.66 MG/DL Random Glucose 117 MG/DL Calcium Level 7.9 MG/DL Phosphorus Level 2.9 MG/DL Magnesium Level 2.2 MG/DL Sodium Level 145 MEQ/L Potassium Level 3.8 MEQ/L Chloride Level 112 MEQ/L Carbon Dioxide Level 26.0 MEQ/L Anion Gap 7 MEQ/L Estimat Glomerular Filtration Rate 89 ML/MIN Assessment and Plan Problem List: (1) Multi-vessel coronary artery stenosis ICD Codes: I25.10 - Atherosclerotic heart disease of [place] coronary artery without angina pectoris (2) Unstable angina ICD Codes: I20.0 - Unstable angina Status: Acute (3) Coronary arteriosclerosis ICD Codes: I25.10 - Coronary arteriosclerosis Status: Acute (4) Hypertension ICD Codes: I10 - Hypertension Status: Acute (5) Parkinsons ICD Codes: G20 - Parkinson's disease Status: Chronic (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) (7) Electrolyte imbalance ICD Codes: E87.8 - Other disorders of electrolyte and fluid balance, not elsewhere classified (8) Postoperative hypotension ICD Codes: I95.89 - Other hypotension Assessment and Plan 1) MVCAD s/p CABGx4 POD #4 WHATLEY to LAD SVG to OM1 SVG to OM2 SVG to PDA 2) Short run of narrow complex tachycardia, appears to be PAT Will attempt low dose BB while under observation in the hospital 3) EF 60-65% by echo 4) Anemia Post-op 5) Con't ASA 6) Cortisol level random low, started on steroids per critical care, doing better overall Wean dosing Problem Qualifiers (1) Hypertension: Qualified Codes: I10 - Essential (primary) hypertension Aquiles Escamilla DO Apr 18, 2017 09:21
[2017-04-18] MEDS ORDERED: NEBIVOLOL 2.5 MG TAB PO SCH (11:00)
[2017-04-18] MEDS: SODIUM CHLORIDE 0.9% FLUSH 10 ML FLUSH IV FLUSH SCH ×2 (11:58→21:58)
[2017-04-18] MEDS ORDERED: PILL SPLITTER OTHER PRN (15:45)
[2017-04-18] MEDS ORDERED: LEVO.05 PO (15:48)
[2017-04-18] MEDS ORDERED: CARB25TA9 PO (15:48)
[2017-04-18] MEDS ORDERED: MEDR4PAK PO (15:48)
[2017-04-18] MEDS ORDERED: THERM PO (15:48)
[2017-04-18] MEDS ORDERED: OXYC1TAB63 PO (15:48)
[2017-04-18] MEDS ORDERED: METO25TA3 PO (15:48)
[2017-04-18] MEDS ORDERED: POLY17S PO (15:48)
[2017-04-18] MEDS ORDERED: DOCU1CAP39 PO (15:48)
[2017-04-18] MEDS ORDERED: FERR325T8 PO (15:56)
--- NOTE | 2017-04-18 15:56 | HHI.DS ---
Discharge Summary Admission Date Apr 09, 2017 at 17:52 Discharge Date: Apr 20, 2017 Admitting Diagnosis Unstable angina (1) Unstable angina Diagnosis: Principal ICD Codes: I20.0 - Unstable angina Status: Acute (2) Coronary arteriosclerosis Diagnosis: Principal ICD Codes: I25.10 - Coronary arteriosclerosis Status: Acute (3) Hypothyroidism Diagnosis: Principal ICD Codes: E03.9 - Hypothyroidism Status: Chronic (4) Hypertension Diagnosis: Principal ICD Codes: I10 - Hypertension Status: Chronic (5) Parkinsons Diagnosis: Principal ICD Codes: G20 - Parkinson's disease Status: Chronic (6) Postoperative hypotension ICD Codes: I95.89 - Other hypotension Status: Acute (7) Blood loss anemia Diagnosis: Secondary ICD Codes: D50.0 - Iron deficiency anemia secondary to blood loss (chronic) Status: Acute (8) S/P CABG x 4 Diagnosis: Secondary ICD Codes: Z95.1 - Presence of aortocoronary bypass graft Procedures CABG x 4 WHATLEY to LAD - good SVG to OM1 - good SVG to OM2 - good SVG to PDA - good EVH Brief History 71/ female hx of CAD/ stent x 3 2006 LAD, and 2 RCA recurrent chest pain, transferred from [place], underwent cardiac cath by Dr Escamilla 90% LAD, 50 % Diagonal, 80% OM, 90% RCA EF 60% PMH: CAD HLP, HTN, Osteoarthritis, Osteoporosis , questionable Parkinson's on Sinemet ( follows with Dr Covarrubias) , hypothyroidism CBC/BMP: 04/18/17 0420 04/18/17 0420 Significant Findings Laboratory Tests Test 04/16/17 07:40 04/16/17 08:50 04/17/17 04:30 04/17/17 10:00 White Blood Count 12.0 TH/MM3 (4.0-11.0) Red Blood Count 2.55 MIL/MM3 (4.00-5.30) 2.86 MIL/MM3 (4.00-5.30) Hemoglobin 7.5 GM/DL (11.6-15.3) 8.7 GM/DL (11.6-15.3) Hematocrit 22.2 % (35.0-46.0) 25.2 % (35.0-46.0) Red Cell Distribution Width 21.8 % (11.6-17.2) 19.5 % (11.6-17.2) Platelet Count 90 TH/MM3 (150-450) 87 TH/MM3 (150-450) Random Glucose 110 MG/DL (74-106) 119 MG/DL (74-106) Total Protein 4.7 GM/DL (6.4-8.2) 5.2 GM/DL (6.4-8.2) Albumin 2.6 GM/DL (3.4-5.0) 2.7 GM/DL (3.4-5.0) Calcium Level 7.9 MG/DL (8.5-10.1) Chloride Level 113 MEQ/L (98-107) 112 MEQ/L (98-107) Estimat Glomerular Filtration Rate 80 ML/MIN (>89) Thyroid Stimulating Hormone 3rd Gen 7.220 uIU/ML (0.358-3.740) Neutrophils (%) (Auto) 80.5 % (16.0-70.0) Monocytes (%) (Auto) 8.2 % (0.0-8.0) Neutrophils # (Auto) 8.5 TH/MM3 (1.8-7.7) Neutrophils % (Manual) 74 % (16-70) Band Neutrophils % 7 % (0-6) Neutrophils # (Manual) 8.7 TH/MM3 (1.8-7.7) Platelet Estimate LOW (NORMAL) Basophilic Stippling FAINT (NORMAL) Spherocytes OCC (NORMAL) Acanthocytes OCC (NORMAL) Phosphorus Level 1.7 MG/DL (2.5-4.9) Aspartate Amino Transf (AST/SGOT) 49 U/L (15-37) Potassium Level 3.4 MEQ/L (3.5-5.1) Urine Mucus FEW /lpf (OCC) Test 04/18/17 04:20 Red Blood Count 2.69 MIL/MM3 (4.00-5.30) Hemoglobin 8.2 GM/DL (11.6-15.3) Hematocrit 24.0 % (35.0-46.0) Red Cell Distribution Width 19.6 % (11.6-17.2) Platelet Count 121 TH/MM3 (150-450) Random Glucose 117 MG/DL (74-106) Calcium Level 7.9 MG/DL (8.5-10.1) Chloride Level 112 MEQ/L (98-107) Imaging Last Impressions Chest X-Ray 04/16/17 Signed Impressions: Service Date/Time: Sunday, April 16, 2017 10:23 - CONCLUSION: Minimal increased parenchymal changes right base. Isaac Luna MD FACR Lower Extremity Ultrasound 04/10/17 Signed Impressions: Service Date/Time: April 17:51 - CONCLUSION: Venous mapping as delineated above. Clarence Jim MD Carotid Artery Ultrasound 04/10/17 Signed Impressions: Service Date/Time: April 17:36 - CONCLUSION: Plaque at the carotid bulb regions without a hemodynamically significant stenosis. Clarence Jim MD PE at Discharge GENERAL: SKIN: Warm and dry.prevena dressing to chest, incision intact to leg HEAD: Normocephalic. EYES: No scleral icterus. No injection or drainage. NECK: Supple, trachea midline. No JVD or lymphadenopathy. CARDIOVASCULAR: Regular rate and rhythm without murmurs, gallops, or rubs. RESPIRATORY: Breath sounds equal bilaterally. No accessory muscle use. GASTROINTESTINAL: Abdomen soft, non-tender, nondistended. MUSCULOSKELETAL: No cyanosis, or edema. BACK: Nontender without obvious deformity. No CVA tenderness. Hospital Course 04/11 pt had small amount of chest pain last pm and recurrent this afternoon 2/ Nitro sl prn , started on Nitro paste for surgery on Friday remains on Heparin gtt 04/15/17 c/o fatigue, dizzy. 04/16 unable to wean off Aleksandr since surgery, remained hypotensive despite 2 units of PRBC yesterday HGB now 7.5, additional one unit PRBC today cortisol levl 11, started on stress dose steroids TSH 7, levothyroxine increased narcotics decreased limited ECHO EF 60% no pericardial effusion 04/17 BP improved, slowly wean stress dose steroids slowly increase Sinemet, midodrine dc resume cymbalta in am HGB stable gentle diuresis , aggressive pulm toileting 04/18 had short burst of svt last pm, started now on BB, weaning steroids slowly, Sinemet increased to tid IV diuresis given , BP stable HGB 8.2 recheck in am , start iron supplement eval for dc possible friday wikll need taper po steroids Pt Condition on Discharge: Good Discharge Disposition: Disch w/ Home Health Serv Discharge Instructions DIET: Follow Instructions for: Heart Healthy Diet Activities you can perform: Full Weight Bearing, Shower Only-No Bath Activities to avoid: Prolonged Standing, Strenuous Activity Additional Activity Instructio: no lifting > 8 lbs or gallon of milk Follow up Referrals: Cardiology PCP Follow-up Surgical New Orders: BASIC METABOLIC PROF - 2 Weeks CBC NO DIFF - 2 Weeks X-RAY CHEST PA & LAT - 2 Weeks New Medications: Methylprednisolone Dosepak (Medrol Dosepak) 4 Mg Dspk 4 MG PO DIRECTED, #1 DSPK 0 Refills Per Pharmacist direction Carbidopa-Levodopa (Carbidopa-Levodopa) 25-100 Mg Tab 1 TAB PO TID for parkinson's, #90 TAB 2 Refills Docusate Sodium (Dok) 100 Mg Cap 100 MG PO BID for Constipation, #60 CAP 0 Refills Levothyroxine (Synthroid) 50 Mcg Tab 50 MCG PO DAILY@0600 for hypothyroidism , #30 TAB 2 Refills Metoprolol Tartrate (Metoprolol Tartrate) 25 Mg Tab 12.5 MG PO Q12HR for Blood Pressure Management, #60 TAB 2 Refills Multiple Vitamins W/ Minerals (Thera M Plus) 1 Tab 1 TAB PO DAILY for multi vitamin, #30 TAB 2 Refills Oxycodone-Acetaminophen (Oxycodone-Acetaminophen) 5-325 mg Tab 1 TAB PO Q4HR PRN for PAIN SCALE 1 TO 5, #40 TAB 0 Refills Polyethylene Glycol 3350 Powder (Polyethylene Glycol 3350 Powder) 17 Gram Pow 17 GM PO DAILY for Constipation, #30 PACKET 0 Refills Continued Medications: Alendronate (Fosamax) 70 Mg Tab 70 MG PO Q7D for Osteoporosis Treatment, #4 TAB 0 Refills Alprazolam (Alprazolam) 0.25 Mg Tab 0.25 MG PO DAILY PRN for ANXIETY, TAB 0 Refills Amlodipine (Amlodipine) 2.5 Mg Tab 2.5 MG PO DAILY for Blood Pressure Management, #30 TAB [address] (Aspirin 81) 81 Mg Tabdr 81 MG PO DAILY, TAB [address] (Cymbalta DR) 60 Mg Capdr 60 MG PO HS, #30 CAP 0 Refills Discontinued Medications: Carbidopa-Levodopa (Carbidopa-Levodopa) 25-100 Mg Tab 2 TAB PO BID for Parkinson Disease Mgmt, #90 TAB 0 Refills Carbidopa-Levodopa (Carbidopa-Levodopa) 25-100 Mg Tab 1 TAB PO HS for Parkinson Disease Mgmt, #90 TAB 0 Refills Levothyroxine (Levothyroxine) 25 Mcg Tab 25 MCG PO DAILY for Thyroid, #30 TAB 0 Refills Nebivolol (Bystolic) 2.5 Mg Tab 2.5 MG PO HS for Blood Pressure Management, #30 TAB 0 Refills Nitroglycerin Patch 24 HR (Nitro-Dur Patch 24 HR) 0.4 Mg/Hr Patch 0.4 MG T-DERMAL DAILY PRN for CHEST PAIN, #30 PATCH 0 Refills Nitroglycerin SL (Nitrostat SL) 0.4 Mg Subl 0.4 MG SL DIRECTED PRN for CHEST PAIN, #100 TAB.SL 0 Refills 1 tablet under the tongue as needed for chest pain. Repeat every 5 minutes for a total of 3 DOSES or call 911 if NO relief. Rebecca House Apr 18, 2017 15:55
[2017-04-18] MEDS: METOPROLOL TARTRATE 25 MG TAB PO SCH ×2 (16:59→21:58)
[2017-04-18] MEDS: FERROUS SULFATE 325 MG (65 MG ELEMENTAL IRON) TAB PO SCH (18:10)
[2017-04-18] MEDS: DULoxetine HCl DR 60 MG CAP PO SCH (21:56)
[2017-04-18] MEDS: SENNOSIDES 8.6 MG TAB PO SCH (21:57)
[2017-04-19] VITALS (14 sets, daily range): BP systolic 115–130; BP diastolic 62–74; PULSE 56–74; RESP 14–18; TEMP 98–98.3; O2SAT 94–96
[2017-04-19 04:51] LABS: HEMATOCRIT 24.7 % (35.0-46.0); MEAN CELL VOLUME 90.9 FL (80.0-100.0); MEAN CORPUSCULAR HEMOGLOBIN 30.8 PG (27.0-34.0); MEAN CORPUSCULAR HGB CONC 33.9 % (32.0-36.0); PLATELET COUNT 157 TH/MM3 (150-450); RED BLOOD COUNT 2.72 MIL/MM3 (4.00-5.30); RED CELL DISTRIBUTION WIDTH 19.5 % (11.6-17.2); REVIEW FLAG FINAL; WHITE BLOOD COUNT 6.8 TH/MM3 (4.0-11.0)
[2017-04-19 05:24] LABS: BICARBONATE 23.8 MEQ/L (21.0-32.0); MAGNESIUM 2.2 MG/DL (1.5-2.5); POTASSIUM 3.8 MEQ/L (3.5-5.1)
[2017-04-19] MEDS: HYDROCORTISONE SOD SUCCINATE 100 MG VIAL IV SCH (06:07)
[2017-04-19] MEDS: LEVOTHYROXINE SODIUM 50 MCG TAB PO SCH (06:07)
[2017-04-19] MEDS: PANTOPRAZOLE SOD 40 MG DELAYED RELEASE TAB PO SCH (06:07)
--- NOTE | 2017-04-19 06:43 | RADRPT ---
EXAM DATE/TIME: 04/19/2017 05:15 [place] COMPARISON: CHEST SINGLE AP, April 16, 2017, 10:23. INDICATIONS : Shortness of breath, possible pulmonary disease. MEDICAL HISTORY : Hypothyroidism. Hypertension Hypercholesterolemia. Parkinson's SURGICAL HISTORY : Tonsillectomy. Cholecystectomy. Carotid stent. Tubal ligation Lt hip arthroplasty ENCOUNTER: Subsequent ACUITY: 1 week PAIN SCORE: 7/10 LOCATION: Bilateral chest FINDINGS: The patient is status post sternotomy. There is mild increased density at the right base. The left ch est tube and mediastinal drains have been removed. A pneumothorax is not seen. There some suspected m ild consolidation or atelectasis along the path of the left chest tube in the left midlung. CONCLUSION: Minimal consolidation or atelectasis at the right base and at the left midlung adjacent to the left c hest tube tract. Clarence Jim MD on April 19, 2017 at 6:40 Board Certified Radiologist. This report was verified electronically.
[2017-04-19] MEDS: INSULIN ASPART SUPPLEMENTAL SCALE SQ SCH ×2 (07:57→12:00)
[2017-04-19] MEDS: LACTOBACILLUS ACIDOPHILUS TAB PO SCH ×2 (08:57→12:49)
[2017-04-19] MEDS: CARBIDOPA/LEVODOPA 25 MG/100 MG TAB PO SCH ×2 (08:58→12:49)
[2017-04-19] MEDS: MULTIVITAMINS/MINERALS THERAPEUTIC TAB PO SCH (08:58)
[2017-04-19] MEDS: POTASSIUM PHOSPHATE MONOBASIC 500 MG TAB PO SCH (08:58)
[2017-04-19] MEDS: METOPROLOL TARTRATE 25 MG TAB PO SCH (08:59)
[2017-04-19] MEDS: DOCUSATE SODIUM 100 MG CAP PO SCH (08:59)
[2017-04-19] MEDS: ASPIRIN 81 MG CHEW TAB PO SCH (08:59)
[2017-04-19] MEDS: SODIUM CHLORIDE 0.9% FLUSH 10 ML FLUSH IV FLUSH SCH (08:59)
[2017-04-19] MEDS: MAGNESIUM HYDROXIDE SUSP 30 ML CUP PO SCH (09:00)
[2017-04-19] MEDS: POLYETHYLENE GLYCOL 17 GM PKG PO SCH (09:00)
--- NOTE | 2017-04-19 11:35 | PD.CARD.PN ---
Subjective Subjective Remarks Doing well, no complaints Up to the chair, ambulated by herself Telemetry showing a narrow complex tachycardia with regular R-R interval, possible PAT Objective Medications Current Medications Medications (Trade) Dose Ordered Sig/Andrew Route Start Time Stop Time Status Last Admin (Doretha Seaman) 60 mg HS PO 04/09/17 21:00 Future hold 04/18/17 21:56 (NS Flush) 2 ml BID IV FLUSH 04/10/17 21:00 04/19/17 08:59 (NS Flush) 2 ml UNSCH PRN IV FLUSH 04/10/17 16:45 04/14/17 23:31 (Tylenol) 650 mg Q4H PRN PO 04/13/17 07:30 04/17/17 19:50 (Lactinex) 1 tab TID PO 04/13/17 13:00 04/19/17 08:57 Lactated Ringer's 500 ml @ 500 mls/hr Q1H PRN IV 04/14/17 11:48 (Aspirin Chew) 81 mg DAILY PO 04/15/17 09:00 04/19/17 08:59 (Protonix) 40 mg DAILY@06 PO 04/15/17 06:00 04/19/17 06:07 (Tylenol) 650 mg Q4H PRN PO 04/14/17 12:00 (Percocet 5-325 Mg) 1 tab Q3H PRN PO 04/14/17 12:00 04/18/17 21:57 (Zofran Inj) 4 mg Q6H PRN IV PUSH 04/14/17 12:00 (KCl) 20 meq UNSCH PRN PO 04/14/17 12:00 (D50w (Vial) Inj) 50 ml UNSCH PRN IV PUSH 04/14/17 12:00 04/15/17 02:44 (Duoneb Neb) 1 ampule Q2HR NEB PRN NEB 04/14/17 12:00 04/14/17 21:40 (D50w (Vial) Inj) 50 ml UNSCH PRN IV PUSH 04/15/17 11:15 (Glucagon Inj) 1 mg UNSCH PRN OTHER 04/15/17 11:15 (Synthroid) 50 mcg DAILY@0600 PO 04/17/17 06:00 04/19/17 06:07 (Benadryl) 25 mg HS PRN PO 04/16/17 19:15 04/16/17 21:11 (Theragran M Tab) 1 tab DAILY PO 04/17/17 12:00 04/19/17 08:58 (K-Phos) 500 mg Q12HR PO 04/17/17 09:30 04/19/17 08:58 (Colace) 100 mg BID PO 04/17/17 09:30 04/18/17 21:56 (Milk Of Magnesia Liq) 30 ml DAILY PO 04/17/17 09:30 04/18/17 08:52 (Dulcolax Supp) 10 mg UNSCH PRN RECTAL 04/17/17 09:30 (Miralax) 17 gm DAILY PO 04/17/17 09:30 04/18/17 08:52 (Senokot) 8.6 mg HS PO 04/17/17 21:00 04/18/17 21:57 (Fleets Enema (Adult)) 133 ml UNSCH PRN RECTAL 04/17/17 09:30 (NovoLOG SUPPLEMENTAL SCALE) 1 ACHS SQ 04/17/17 12:00 04/17/17 21:47 (D50w (Vial) Inj) 50 ml UNSCH PRN IV PUSH 04/17/17 09:30 (Glucagon Inj) 1 mg UNSCH PRN OTHER 04/17/17 09:30 (SoluCORTEF INJ) 50 mg Q8HR IV 04/17/17 22:00 04/19/17 06:07 (Sinemet 25-100 Mg) 1 tab TID PO 04/18/17 18:00 04/19/17 08:58 (Lopressor) 12.5 mg Q12HR PO 04/18/17 15:30 04/19/17 08:59 (Pill Splitter) 1 ea UNSCH PRN OTHER 04/18/17 15:45 (Ferrous Sulfate) 325 mg BID@ PO 04/18/17 17:00 04/18/17 18:10 Vital Signs / I&O Vital Signs Date Time Temp Pulse Resp B/P (MAP) Pulse Ox O2 Delivery O2 Flow Rate FiO2 04/19/17 11:29 98.1 68 18 118/62 (80) 96 04/19/17 11:00 56 04/19/17 10:00 62 04/19/17 09:00 66 04/19/17 08:40 95 21 04/19/17 08:00 98.3 68 18 115/66 (82) 96 04/19/17 08:00 68 04/19/17 07:00 74 04/19/17 06:00 57 04/19/17 05:00 60 04/19/17 04:00 58 04/19/17 03:00 58 04/19/17 03:00 98.0 60 14 130/74 (92) 94 04/19/17 02:00 58 04/19/17 01:00 62 04/19/17 00:00 62 04/18/17 23:00 98.3 65 16 104/56 (72) 94 04/18/17 23:00 62 04/18/17 23:00 16 04/18/17 22:00 66 04/18/17 21:00 66 04/18/17 20:00 66 04/18/17 19:52 92 04/18/17 19:00 70 04/18/17 19:00 98.5 68 16 86/52 (63) 94 04/18/17 18:00 66 04/18/17 17:00 68 04/18/17 16:00 70 04/18/17 15:00 70 04/18/17 14:00 70 04/18/17 13:00 80 04/18/17 12:00 74 I/O 04/18/17 04/18/17 04/18/17 04/19/17 04/19/17 04/19/17 07:00 15:00 23:00 07:00 15:00 23:00 Intake Total 600 ml 800 ml 480 ml Output Total 50 ml 940 ml Balance 550 ml -140 ml 480 ml Intake Oral 600 ml 800 ml 480 ml Output Urine Total 900 ml Chest Tube Drainage Total 50 ml 40 ml # Voids 2 2 # Bowel Movements 0 1 Physical Exam GENERAL: NAD, AAOx3 SKIN: Warm and dry. HEAD: Atraumatic. Normocephalic. EYES: Pupils equal and round. No scleral icterus. No injection or drainage. ENT: No nasal bleeding or discharge. Mucous membranes pink and moist. NECK: Trachea midline. No JVD. CARDIOVASCULAR: Regular rate and rhythm. Sternotomy with wound vac RESPIRATORY: No accessory muscle use. Clear to auscultation. Breath sounds equal bilaterally. GASTROINTESTINAL: Abdomen soft, non-tender, nondistended. Hepatic and splenic margins not palpable. MUSCULOSKELETAL: Extremities without clubbing, cyanosis, or edema. No obvious deformities. NEUROLOGICAL: Awake and alert. No obvious cranial nerve deficits. Motor grossly within normal limits. Five out of 5 muscle strength in the arms and legs. Normal speech. PSYCHIATRIC: Appropriate mood and affect; insight and judgment normal. Laboratory Laboratory Tests Test 04/19/17 04:22 White Blood Count 6.8 TH/MM3 Red Blood Count 2.72 MIL/MM3 Hemoglobin 8.4 GM/DL Hematocrit 24.7 % Mean Corpuscular Volume 90.9 FL Mean Corpuscular Hemoglobin 30.8 PG Mean Corpuscular Hemoglobin Concent 33.9 % Red Cell Distribution Width 19.5 % Platelet Count 157 TH/MM3 Mean Platelet Volume 8.6 FL Blood Urea Nitrogen 18 MG/DL Creatinine 0.67 MG/DL Random Glucose 118 MG/DL Calcium Level 8.3 MG/DL Magnesium Level 2.2 MG/DL Sodium Level 142 MEQ/L Potassium Level 3.8 MEQ/L Chloride Level 111 MEQ/L Carbon Dioxide Level 23.8 MEQ/L Anion Gap 7 MEQ/L Estimat Glomerular Filtration Rate 87 ML/MIN Imaging Last 24 hours Impressions Chest X-Ray 04/19/17 0600 Signed Impressions: Service Date/Time: Wednesday, April 19, 2017 05:15 - CONCLUSION: Minimal consolidation or atelectasis at the right base and at the left midlung adjacent to the left chest tube tract. 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) Status: Acute (7) Electrolyte imbalance ICD Codes: E87.8 - Other disorders of electrolyte and fluid balance, not elsewhere classified (8) Postoperative hypotension ICD Codes: I95.89 - Other hypotension Status: Acute Assessment and Plan 1) MVCAD s/p CABGx4 POD #5 WHATLEY to LAD SVG to OM1 SVG to OM2 SVG to PDA 2) Short run of narrow complex tachycardia, appears to be PAT Placed on low dose BB 3) EF 60-65% by echo 4) Anemia Post-op 5) Con't ASA 6) Cortisol level random low, started on steroids per critical care, doing better overall Wean dosing May need follow up with Endocrinology on discharge Problem Qualifiers (1) Hypertension: Qualified Codes: I10 - Essential (primary) hypertension Aquiles Escamilla DO Apr 19, 2017 11:35
[2017-04-19] MEDS: FERROUS SULFATE 325 MG (65 MG ELEMENTAL IRON) TAB PO SCH (12:49)
== END 2017-04-19 15:00 | disposition home health service (06) | DRG 234 ==
LOC: PHED 15:04 → PHEDA 17:52 → HCIS 21:36 → HCPC 04-11 22:23 → N05A 04-12 20:50 → HCPC 04-12 21:16 → HCVI 04-14 12:36 → HCPC 04-17 13:30
PROVIDERS: ADMIT Thoracic Surgery (Cardiothoracic Vascular Surgery); ATTEND Thoracic Surgery (Cardiothoracic Vascular Surgery)
PROC: 4A023N7 Measurement of Cardiac Sampling and Pressure, Left Heart, Percutaneous Approach (ICD-10-PCS; 2017-04-10)
PROC: B2111ZZ Fluoroscopy of Multiple Coronary Arteries using Low Osmolar Contrast (ICD-10-PCS; 2017-04-10)
PROC: 021209W Bypass Coronary Artery, Three Arteries from Aorta with Autologous Venous Tissue, Open Approach (ICD-10-PCS; 2017-04-14)
PROC: 06BQ4ZZ Excision of Left Saphenous Vein, Percutaneous Endoscopic Approach (ICD-10-PCS; 2017-04-14)
PROC: 5A1221Z Performance of Cardiac Output, Continuous (ICD-10-PCS; 2017-04-14)
PROC: 5A1935Z Respiratory Ventilation, Less than 24 Consecutive Hours (ICD-10-PCS; 2017-04-14)
PROC: 02100Z9 Bypass Coronary Artery, One Artery from Left Internal Mammary, Open Approach (ICD-10-PCS; principal; 2017-04-14 08:13)
PROC: 30233N1 Transfusion of Nonautologous Red Blood Cells into Peripheral Vein, Percutaneous Approach (ICD-10-PCS; 2017-04-15)
DX: I25.110 Atherosclerotic heart disease of native coronary artery with unstable angina pectoris (principal); G20 Parkinson's disease; E27.40 Unspecified adrenocortical insufficiency; T82.855A Stenosis of coronary artery stent, initial encounter; I10 Essential (primary) hypertension; Z95.5 Presence of coronary angioplasty implant and graft; E03.9 Hypothyroidism, unspecified; E78.00 Pure hypercholesterolemia, unspecified; M19.90 Unspecified osteoarthritis, unspecified site; Z85.828 Personal history of other malignant neoplasm of skin; Z87.891 Personal history of nicotine dependence; Z96.642 Presence of left artificial hip joint; M81.0 Age-related osteoporosis without current pathological fracture; F41.9 Anxiety disorder, unspecified; Z82.49 Family history of ischemic heart disease and other diseases of the circulatory system; R00.1 Bradycardia, unspecified; I44.0 Atrioventricular block, first degree; I95.81 Postprocedural hypotension; Y83.8 Other surgical procedures as the cause of abnormal reaction of the patient, or of later complication, without mention of misadventure at the time of the procedure; Y92.9 Unspecified place or not applicable; D64.89 Other specified anemias
CPT/HCPCS: 36430; 71010; 80048; 80053; 81001; 82533; 82948; 83036; 83735; 84100; 84155; 84443; 84484; 85002; 85007; 85014; 85025; 85027; 85610; 85730; 86850; 86900; 86901; 86920; 87040; 87641; 93005; 93306; 93308; 93458; 93880; 93970; 93998; 94002; 94010; 94150; 94640; 94664; 94667; 94668; C1769; C1893; J0131; J0690; J1644; J1720; J1815; J1885; J1940; J2150; J2250; J2370; J2930; J3010; J3370; J3475; J3480; J7060; P9016; P9045; P9047; Q9967

== ENCOUNTER 2017-04-19 18:34 | Emergency (ER) | payer MEDICARE ==
[~2017-04-19] VITALS: Ht 167.6 cm; Wt 84.2 kg
[~2017-04-19 18:34] MED LIST changes: +ALPR0.25 PO; +AMLO2.5T PO; +ASPI-110 PO; -ASPI81TA82 PO; -ATOR10TA PO; -CARB25TA PO; +CARB25TA9 PO; -CARV6.252 PO; -CHOL50006 PO; -COEN400C PO; +DOCU1CAP39 PO; +FERR325T8 PO; -HYDR-3580 PO; +LEVO.05 PO; +MEDR4PAK PO; +METO25TA3 PO; +OXYC1TAB63 PO; -POLY119S PO; +POLY17S PO; -RIVA10 PO; -SYNT25TA PO; -TAB-TAB PO; +THERM PO; -Z.0.COMMODE-3:1; -Z.0.WALKERFRONT
[2017-04-19 18:42] VITALS: BP 119/78; PULSE 61; RESP 18; TEMP 98; O2SAT 95
--- NOTE | 2017-04-19 19:22 | PD ---
HPI Chief Complaint: Bleeding Time Seen by Provider: 19:18 Travel History International Travel<30 days: No Contact w/Intl Traveler<30days: No Traveled to known affect area: No History of Present Illness HPI The patient is a 71-year-old female that is status postop CABG on Friday, 5 days ago. She has some bleeding from the donor site on the left leg. The only anticoagulant she is on is aspirin. The patient was just discharged from the hospital today. She has been anemic and she has been put on iron pills. She probably lost less than 10 cc of blood from the leg. PFSH Past Medical History Hx Anticoagulant Therapy: Yes (aspirin ) Arthritis: No Anxiety: Yes Depression: Yes Heart Rhythm Problems: No Cancer: Yes (skin) Cardiovascular Problems: Yes (CABG, HTN) High Cholesterol: Yes Chest Pain: Yes Congestive Heart Failure: No Cerebrovascular Accident: Yes (TIA) Coronary Artery Disease: Yes (STENTS) Diminished Hearing: No Endocrine: No Gastrointestinal Disorders: Yes (HX ESOPHAGUS SPASMS) GERD: Yes Genitourinary: No Headaches: Yes Hepatitis: No Hiatal Hernia: No Hypertension: Yes Immune Disorder: No Musculoskeletal: Yes (ARTHRITIS, PARKINSONS) Neurologic: Yes (POSS TIA) Parkinson's Disease: Yes Psychiatric: No Reproductive: No Respiratory: No Migraines: No Seizures: No Thyroid Disease: Yes (HYPO) Ulcer: No ?: Not Menopausal: Yes Tubal Ligation: Yes Past Surgical History Abdominal Surgery: Yes (SANDY 2002) AICD: No Body Medical Devices: 3 CARDIAC STENTS, Cardiac Surgery: Yes (3 STENT PLACEMENT 04/01/07) Cholecystectomy: Yes (WITH ERCP AFTER) Coronary Stent: Yes (ANGIOPLASTY WITH 3 STENTS) Ear Surgery: No Endocrine Surgery: No Eye Surgery: No Genitourinary Surgery: Yes (TUBAL LIGATION) Gynecologic Surgery: No Joint Replacement: Yes (left hip) Neurologic Surgery: No Oral Surgery: No Pacemaker: No Thoracic Surgery: No Tonsillectomy: Yes Other Surgery: Yes Social History Alcohol Use: Yes (1-2 GLASSES OF WINE A NIGHT WITH DINNER) Tobacco Use: No (quit 45 yrs ago smoked 2 ppd cigs) Substance Use: No Allergies-Medications (Allergen,Severity, Reaction): Coded Allergies: meperidine (Unverified Allergy, Severe, VOMITING, 04/19/17) codeine (Verified Allergy, Intermediate, Vomiting, 04/19/17) Uncoded Allergies: statin (Allergy, Intermediate, myopathy, 04/10/17) myyopathy Reported Meds & Prescriptions Reported Meds & Active Scripts Active Ferrous Sulfate 325 Mg (65 Mg Iron) Tablet 325 Mg PO BIDPC Medrol Dosepak (Methylprednisolone) 4 Mg Dspk 4 Mg PO DIRECTED Per Pharmacist direction Thera M Plus (Multivitamins/Minerals Therapeutic) 1 Tab 1 Tab PO DAILY Synthroid (Levothyroxine Sodium) 50 Mcg Tab 50 Mcg PO DAILY@0600 Polyethylene Glycol 3350 Powder (Polyethylene Glycol) 17 Gram Pow 17 Gm PO DAILY Dok (Docusate Sodium) 100 Mg Cap 100 Mg PO BID Carbidopa-Levodopa 25-100 Mg Tab 1 Tab PO TID Oxycodone-Acetaminophen 5-325 mg Tab 1 Tab PO Q4HR PRN Metoprolol Tartrate 25 Mg Tab 12.5 Mg PO Q12HR Reported Amlodipine (Amlodipine Besylate) 2.5 Mg Tab 2.5 Mg PO DAILY Alprazolam 0.25 Mg Tab 0.25 Mg PO DAILY PRN Cymbalta DR (Duloxetine HCl) 60 Mg Capdr 60 Mg PO HS Aspirin 81 (Aspirin) 81 Mg Tabdr 81 Mg PO DAILY Fosamax (Alendronate Sodium) 70 Mg Tab 70 Mg PO Q7D Review of Systems Except as stated in HPI: all other systems reviewed are Neg Physical Exam Narrative GENERAL: Well-nourished, well-developed patient in no apparent distress. Her vital signs are normal. SKIN: Focused skin assessment warm/dry. The left leg shows no bleeding at this time but there is blood staining on the 2 x 2 that was put over the area. The bleeding came from a Steri-Stripped area from the harvest site incision. HEAD: Normocephalic. EYES: No scleral icterus. No injection or drainage. NECK: Supple, trachea midline. No JVD or lymphadenopathy. CARDIOVASCULAR: Regular rate and rhythm without murmurs, gallops, or rubs. RESPIRATORY: Breath sounds equal bilaterally. No accessory muscle use. GASTROINTESTINAL: Abdomen soft, non-tender, nondistended. MUSCULOSKELETAL: No cyanosis, or edema. BACK: Nontender without obvious deformity. No CVA tenderness. Data Data Last Documented VS Vital Signs Date Time Temp Pulse Resp B/P (MAP) Pulse Ox O2 Delivery O2 Flow Rate FiO2 04/19/17 19:14 Room Air 10/14/17 18:42 98.0 61 18 119/78 (92) 95 Orders Orders Wound Care (04/19/17 19:22) Complete Blood Count With Diff (04/19/17 19:26) MDM Medical Decision Making Medical Screen Exam Complete: Yes Emergency Medical Condition: Yes Medical Record Reviewed: Yes Differential Diagnosis Coagulopathy, persistent bleeding, bleeding spontaneously stopped Narrative Course The bleeding has stopped spontaneously. The patient will get a pressure bandage using Wilber bandages and 4 x 4's to put pressure on the area. She should elevate her leg above her heart. Diagnosis Primary Impression: Postoperative hemorrhage involving circulatory system following circulatory system procedure Additional Instructions: Elevate your leg above your heart and keep the pressure bandage on to prevent bleeding. Follow-up with your physician on Friday or call a number of you have a number to call if you have any problems. Med/Other Pt SpecificInfo: No Change to Meds Disposition: 01 DISCHARGE HOME Condition: Stable Sanjay Rosa MD Apr 19, 2017 19:22
[2017-04-19 19:54] LABS: AUTOMATED NEUTROPHIL # 8.4 TH/MM3 (1.8-7.7); BASOPHIL % 0.3 % (0.0-2.0); EOSINOPHIL # 0.5 TH/MM3 (0-0.4); EOSINOPHIL % 3.6 % (0.0-4.0); HEMATOCRIT 29.1 % (35.0-46.0); LYMPHOCYTE # 2.6 TH/MM3 (1.0-4.8); MEAN CORPUSCULAR HEMOGLOBIN 30.4 PG (27.0-34.0); MEAN CORPUSCULAR HGB CONC 34.1 % (32.0-36.0); MONO % 8.6 % (0.0-8.0); NEUT % 66.5 % (16.0-70.0); PLATELET COUNT 248 TH/MM3 (150-450); RED BLOOD COUNT 3.27 MIL/MM3 (4.00-5.30); RED CELL DISTRIBUTION WIDTH 18.5 % (11.6-17.2); WHITE BLOOD COUNT 12.6 TH/MM3 (4.0-11.0)
[2017-04-19 20:02] LABS: HEMO FLAGS DIFF FINAL
== END 2017-04-19 20:06 | disposition home or self-care (01) ==
LOC: PHED 18:34
DX: I97.611 Postprocedural hemorrhage of a circulatory system organ or structure following cardiac bypass (principal); D64.9 Anemia, unspecified; I10 Essential (primary) hypertension; I25.10 Atherosclerotic heart disease of native coronary artery without angina pectoris; E78.00 Pure hypercholesterolemia, unspecified; G20 Parkinson's disease; E03.9 Hypothyroidism, unspecified; Y83.8 Other surgical procedures as the cause of abnormal reaction of the patient, or of later complication, without mention of misadventure at the time of the procedure; Z79.899 Other long term (current) drug therapy; Z95.1 Presence of aortocoronary bypass graft; Z95.5 Presence of coronary angioplasty implant and graft; Z86.73 Personal history of transient ischemic attack (TIA), and cerebral infarction without residual deficits
CPT/HCPCS: 85025; 99283

== ENCOUNTER 2017-04-21 07:48 | Inpatient (IN) | payer MEDICARE ==
[~2017-04-21] VITALS: Ht 170.2 cm; Wt 78.4 kg
[2017-04-21] VITALS (13 sets, daily range): BP systolic 103–193; BP diastolic 60–96; PULSE 54–66; RESP 16–20; TEMP 97.7–98.4; O2SAT 94–98
[2017-04-21] MEDS ORDERED: IOHEXOL 350 MG/ML 10 ML VIAL (for RAD DIAG) IVCONTRAST ONE (07:49)
[2017-04-21] MEDS ORDERED: ONDANSETRON HCL 4 MG/2 ML VIAL IV PUSH ONE (08:00)
[2017-04-21] MEDS ORDERED: MORPHINE SULFATE 4 MG/ML INJ IV PUSH ONE (08:00)
[2017-04-21] MEDS ORDERED: SODIUM CHLORIDE 0.9% FLUSH 10 ML FLUSH IVF PRN (08:00)
[2017-04-21] MEDS ORDERED: METOPROLOL TARTRATE 25 MG TAB PO ONE (08:00)
--- NOTE | 2017-04-21 08:29 | RADRPT ---
EXAM DATE/TIME: 04/21/2017 08:12 [facility] COMPARISON: CHEST SINGLE AP, April 19, 2017, 5:15. INDICATIONS : Chest pain. Post op CABG 1 week ago today. MEDICAL HISTORY : Arthritis. Hypothyroidism. Hypertension. Parkinson's. TIA. Chest pain.Hypercholestrolemia. Anxie ty. Depression. Skin cancer.CAD. Esophageal spasms. SURGICAL HISTORY : Tonsillectomy. Tubal ligation. Cholecystectomy. Left total hip replacement.Cardiac cath w/ stents. ENCOUNTER: [facility] ACUITY: 1 day PAIN SCORE: 6/10 LOCATION: chest FINDINGS: The heart is at the upper limits of normal in size. The patient is post median sternotomy. There are small areas of consolidative change in the lung bases. There is no significant effusion. The visualized bony structures are grossly intact. CONCLUSION: 1. There are small areas of consolidation in the lung bases. This is new compared to previous of 04/06 10/21. An underlying pneumonia cannot be excluded. Andrea Luna MD on April 21, 2017 at 8:26 Board Certified Radiologist. This report was verified electronically.
[2017-04-21 08:43] LABS: AUTOMATED NEUTROPHIL # 9.6 TH/MM3 (1.8-7.7); BASOPHIL % 0.1 % (0.0-2.0); EOSINOPHIL % 0.1 % (0.0-4.0); HEMATOCRIT 31.7 % (35.0-46.0); LYMPH % 8.1 % (9.0-44.0); LYMPHOCYTE # 0.9 TH/MM3 (1.0-4.8); MEAN CORPUSCULAR HGB CONC 32.6 % (32.0-36.0); MONO % 5.3 % (0.0-8.0); NEUT % 86.4 % (16.0-70.0); PLATELET COUNT 275 TH/MM3 (150-450); RED BLOOD COUNT 3.45 MIL/MM3 (4.00-5.30); RED CELL DISTRIBUTION WIDTH 19.4 % (11.6-17.2); WHITE BLOOD COUNT 11.1 TH/MM3 (4.0-11.0)
[2017-04-21 08:47] LABS: HEMO FLAGS AUTO DIFF
[2017-04-21 08:53] LABS: APTT (PATIENT) 24.5 SEC (24.3-30.1); PROTHROMBIN TIME - PATIENT 11.4 SEC (9.8-11.6)
[2017-04-21 08:56] LABS: ALT (GPT) 47 U/L (10-53); ANION GAP 7 MEQ/L (5-15); AST (GOT) 16 U/L (15-37); BICARBONATE 25.1 MEQ/L (21.0-32.0); BLOOD UREA NITROGEN 14 MG/DL (7-18); CHLORIDE 110 MEQ/L (98-107); GLOMERULAR FILTRATION RATE 79 ML/MIN (>89); POTASSIUM 4.2 MEQ/L (3.5-5.1); SODIUM (NA) 142 MEQ/L (136-145)
[2017-04-21 09:00] LABS: ALKALINE PHOSPHATASE 114 U/L (45-117)
[2017-04-21] MEDS ORDERED: HYDROmorphone HCL PF 1 MG/ML VIAL IV PUSH ONE (09:00)
[2017-04-21 09:07] LABS: BANDS 3 % (0-6); CORRECTED NUCLEATED RBC 1 /100 WBC (0-0); METAMYELOCYTES 1 % (0-1); NEUTROPHIL # MANUAL DIFF 9.3 TH/MM3 (1.8-7.7); POLYS (SEG NEUTROPHILS) 80 % (16-70); WBC DIFF SAMPLE 100
[2017-04-21 09:08] LABS: PLATELET ESTIMATE SMEAR NORMAL (NORMAL); PLATELET MORPHOLOGY NORMAL (NORMAL); SCAN/DIFF FINAL DIFF MANUAL
[2017-04-21 09:13] LABS: CREATINE KINASE 43 U/L (26-192)
--- NOTE | 2017-04-21 10:29 | RADRPT ---
EXAM DATE/TIME: 04/21/2017 09:15 [facility] COMPARISON: No previous studies available for comparison. INDICATIONS : Worsening substernal chest pain for two days. IV CONTRAST: 100 cc Omnipaque 350 (iohexol) IV RADIATION DOSE: 9.31 CTDIvol (mGy) MEDICAL HISTORY : Parkinson's. Cardiovascular disease SURGICAL HISTORY : Tubal ligation. CABGCholecystectomy. ENCOUNTER: Initial ACUITY: 2 days PAIN SCALE: 5/10 LOCATION: substernal chest TECHNIQUE: Volumetric scanning was performed using a multi-row detector CT scanner. The data was post processed with a variety of visualization algorithms including full volume maximum intensity projection, multi -planar sliding thin slab reformation, curved planar reformation, and surface rendering techniques. Using automated exposure control and adjustment of the mA and/or kV according to patient size, radiat ion dose was kept as low as reasonably achievable to obtain optimal diagnostic quality images. DICOM format image data is available electronically for review and comparison. FINDINGS: Thoracic/abdominal aorta: The aorta is normal in caliber and course. No dissection or aneurysm. Scattered calcified plaque. Heart and mediastinum: The heart is normal in size. Prior WHATLEY bypass. Coronary artery atherosclerotic calcifications. Pulmo nary arteries are normal in caliber. No pericardial effusion. No adenopathy. Lung parenchyma: Small posterior layering pleural effusions bilaterally with associated passive atelectasis of the low er lobes. Upper lobes are without atelectasis and normally aerated. Other structures: The gallbladder is surgically absent. Scattered colonic diverticuli without acute inflammation. Left hip prosthesis. A degenerative lumbar spine. CONCLUSION: 1. No aneurysm or dissection. 2. Small bilateral pleural effusions with associated passive atelectasis. 3. Prior cholecystectomy. 4. Colonic diverticulosis. Aniceto Rivera Jr., MD on April 21, 2017 at 10:18 Board Certified Radiologist. This report was verified electronically.
[2017-04-21] MEDS ORDERED: ASPIRIN 81 MG CHEW TAB CHEW ONE (11:15)
[2017-04-21] MEDS ORDERED: HEPARIN-D5W 25,000 U/250 ML 250 ML IV PRN (16:15)
[2017-04-21] MEDS ORDERED: HEPARIN SODIUM - IV 10,000 UNITS/10 ML VIAL IV PUSH ONE (16:15)
--- NOTE | 2017-04-21 16:23 | PD ---
HPI Chief Complaint: Chest Pain Time Seen by Provider: 08:00 Travel History International Travel<30 days: No Contact w/Intl Traveler<30days: No Traveled to known affect area: No History of Present Illness HPI Patient is a 71 year old female, s/p CABG 1 week ago, who comes in complaining of chest pain. She says she came back from the bathroom this morning and started to have pain to the center of her chest that went straight through to her back. She says this pain is similar to pain she had prior to the surgery. She was feeling well up until this point. She denies any nausea or vomiting. She is still currently experiencing the pain. She denies any shortness of breath. She denies fever or chills. PFSH Past Medical History Hx Anticoagulant Therapy: Yes Arthritis: No Anxiety: Yes Depression: Yes Heart Rhythm Problems: No Cancer: Yes (skin) Cardiac Catheterization: Yes Cardiovascular Problems: Yes High Cholesterol: Yes Chest Pain: Yes Congestive Heart Failure: No Cerebrovascular Accident: Yes (TIA) Coronary Artery Disease: Yes (STENTS) Diminished Hearing: No Endocrine: No Gastrointestinal Disorders: Yes (HX ESOPHAGUS SPASMS) GERD: Yes Genitourinary: No Headaches: Yes Hepatitis: No Hiatal Hernia: No Hypertension: Yes Immune Disorder: No Musculoskeletal: Yes (ARTHRITIS, PARKINSONS) Neurologic: Yes (POSS TIA) Parkinson's Disease: Yes Psychiatric: No Reproductive: No Respiratory: No Migraines: No Seizures: No Thyroid Disease: Yes (HYPO) Ulcer: No Tetanus Vaccination: < 5 Years Influenza Vaccination: Yes Menopausal: Yes Tubal Ligation: Yes Past Surgical History Abdominal Surgery: Yes (SANDY 2002) AICD: No Body Medical Devices: 3 CARDIAC STENTS, Cardiac Surgery: Yes (3 STENT PLACEMENT 04/01/07) Cholecystectomy: Yes (WITH ERCP AFTER) Coronary Artery Bypass Graft: Yes Coronary Stent: Yes (ANGIOPLASTY WITH 3 STENTS) Ear Surgery: No Endocrine Surgery: No Eye Surgery: No Genitourinary Surgery: Yes (TUBAL LIGATION) Gynecologic Surgery: No Joint Replacement: Yes (left hip) Neurologic Surgery: No Oral Surgery: No Pacemaker: No Thoracic Surgery: No Tonsillectomy: Yes Other Surgery: Yes Social History Alcohol Use: Yes (1-2 GLASSES OF WINE A NIGHT WITH DINNER) Tobacco Use: No (quit 45 yrs ago smoked 2 ppd cigs) Substance Use: No Allergies-Medications (Allergen,Severity, Reaction): Coded Allergies: meperidine (Verified Adverse Reaction, Severe, VOMITING, 04/21/17) codeine (Verified Adverse Reaction, Intermediate, Vomiting, 04/21/17) Uncoded Allergies: statin (Adverse Reaction, Intermediate, myopathy, 04/21/17) myyopathy Reported Meds & Prescriptions Reported Meds & Active Scripts Active Ferrous Sulfate 325 Mg (65 Mg Iron) Tablet 325 Mg PO BIDPC Medrol Dosepak (Methylprednisolone) 4 Mg Dspk 4 Mg PO DIRECTED Per Pharmacist direction Thera M Plus (Multivitamins/Minerals Therapeutic) 1 Tab 1 Tab PO DAILY Synthroid (Levothyroxine Sodium) 50 Mcg Tab 50 Mcg PO DAILY@0600 Dok (Docusate Sodium) 100 Mg Cap 100 Mg PO BID Carbidopa-Levodopa 25-100 Mg Tab 1 Tab PO TID Oxycodone-Acetaminophen 5-325 mg Tab 1 Tab PO Q4HR PRN Metoprolol Tartrate 25 Mg Tab 12.5 Mg PO Q12HR Reported Amlodipine (Amlodipine Besylate) 2.5 Mg Tab 2.5 Mg PO DAILY Alprazolam 0.25 Mg Tab 0.25 Mg PO DAILY PRN Cymbalta DR (Duloxetine HCl) 60 Mg Capdr 60 Mg PO HS Aspirin 81 (Aspirin) 81 Mg Tabdr 81 Mg PO DAILY Fosamax (Alendronate Sodium) 70 Mg Tab 70 Mg PO Q7D Review of Systems Except as stated in HPI: all other systems reviewed are Neg General / Constitutional: No: Fever, Chills HENT: No: Headaches, Lightheadedness Cardiovascular: Positive: Chest Pain or Discomfort Respiratory: No: Cough Gastrointestinal: No: Nausea, Vomiting Musculoskeletal: Positive: Edema Skin: No Rash, No Change in Pigmentation Neurologic: No: Weakness, Dizziness Physical Exam Narrative GENERAL: Awake and alert, in no acute distress. SKIN: Focused skin assessment warm/dry. Surgical wound to the middle of the chest. No surrounding erythema or warmth. HEAD: Atraumatic. Normocephalic. EYES: Pupils equal and round. No scleral icterus. ENT: Mucous membranes pink and moist. NECK: Trachea midline. No JVD. CARDIOVASCULAR: Regular rate and rhythm. No murmur appreciated. RESPIRATORY: No accessory muscle use. Clear to auscultation. Breath sounds equal bilaterally. GASTROINTESTINAL: Abdomen soft, non-tender, nondistended. MUSCULOSKELETAL: No obvious deformities. No clubbing. No cyanosis. Edema bilateral lower extremities, compression stockings in place. NEUROLOGICAL: Awake and alert. No obvious cranial nerve deficits. Motor grossly within normal limits. Normal speech. PSYCHIATRIC: Appropriate mood and affect; insight and judgment normal. Data Data Last Documented VS Vital Signs Date Time Temp Pulse Resp B/P (MAP) Pulse Ox O2 Delivery O2 Flow Rate FiO2 04/21/17 12:16 97.7 54 17 126/82 (97) 98 Room Air Orders Orders Electrocardiogram (04/21/17 08:00) Ckmb (Isoenzyme) Profile (04/21/17 08:00) Complete Blood Count With Diff (04/21/17 08:00) Comprehensive Metabolic Panel (04/21/17 08:00) Prothrombin Time / Inr (Pt) (04/21/17 08:00) Act Partial Throm Time (Ptt) (04/21/17 08:00) Troponin I (04/21/17 08:00) Chest, Single Ap (04/21/17 08:00) Ecg Monitoring (04/21/17 08:00) Bilateral Bp Monitoring (04/21/17 08:00) Iv Access Insert/Monitor (04/21/17 08:00) Oximetry (04/21/17 08:00) Oxygen Administration (04/21/17 08:00) Morphine Inj (Morphine Inj) (04/21/17 08:00) Sodium Chloride 0.9% Flush (Ns Flush) (04/21/17 08:00) Cta Thor Abd Aorta W Iv C W3d (04/21/17 08:00) Metoprolol Tartrate (Lopressor) (04/21/17 08:00) Ondansetron Inj (Zofran Inj) (04/21/17 08:00) Hydromorphone Pf Inj (Dilaudid Pf Inj) (04/21/17 09:00) Iohexol 350 Inj (Omnipaque 350 Inj) (04/21/17 07:49) Aspirin Chew (Aspirin Chew) (04/21/17 11:15) Troponin I (04/21/17 13:59) Heparin Inj (Heparin Inj) (04/21/17 16:15) Heparin Inj (Heparin Inj) (04/21/17 22:15) Heparin Inj (Heparin Inj) (04/21/17 22:15) Heparin-D5w 25,000 U/250 Ml (Heparin-D5w (04/21/17 16:15) Cbc No Diff, Includes Plts (04/24/17 06:00) Act Partial Throm Time (Ptt) (04/21/17 23:09) Occult Blood (Hemoccult) Stool (04/21/17 16:09) Admit Order (Ed Use Only) (04/21/17 ) Labs Laboratory Tests Test 04/21/17 08:00 04/21/17 14:00 White Blood Count 11.1 TH/MM3 Red Blood Count 3.45 MIL/MM3 Hemoglobin 10.4 GM/DL Hematocrit 31.7 % Mean Corpuscular Volume 92.0 FL Mean Corpuscular Hemoglobin 30.0 PG Mean Corpuscular Hemoglobin Concent 32.6 % Red Cell Distribution Width 19.4 % Platelet Count 275 TH/MM3 Mean Platelet Volume 8.5 FL Neutrophils (%) (Auto) 86.4 % Lymphocytes (%) (Auto) 8.1 % Monocytes (%) (Auto) 5.3 % Eosinophils (%) (Auto) 0.1 % Basophils (%) (Auto) 0.1 % Neutrophils # (Auto) 9.6 TH/MM3 Lymphocytes # (Auto) 0.9 TH/MM3 Monocytes # (Auto) 0.6 TH/MM3 Eosinophils # (Auto) 0.0 TH/MM3 Basophils # (Auto) 0.0 TH/MM3 CBC Comment AUTO DIFF Differential Total Cells Counted 100 Neutrophils % (Manual) 80 % Band Neutrophils % 3 % Lymphocytes % 11 % Monocytes % 5 % Neutrophils # (Manual) 9.3 TH/MM3 Metamyelocytes 1 % Nucleated Red Blood Cells 1 /100 WBC Differential Comment FINAL DIFF MANUAL Platelet Estimate NORMAL Platelet Morphology Comment NORMAL Red Cell Morphology Comment NORMAL Prothrombin Time 11.4 SEC Prothromb Time International Ratio 1.0 RATIO Activated Partial Thromboplast Time 24.5 SEC Blood Urea Nitrogen 14 MG/DL Creatinine 0.73 MG/DL Random Glucose 117 MG/DL Total Protein 6.1 GM/DL Albumin 3.0 GM/DL Calcium Level 8.7 MG/DL Alkaline Phosphatase 114 U/L Aspartate Amino Transf (AST/SGOT) 16 U/L Alanine Aminotransferase (ALT/SGPT) 47 U/L Total Bilirubin 1.0 MG/DL Sodium Level 142 MEQ/L Potassium Level 4.2 MEQ/L Chloride Level 110 MEQ/L Carbon Dioxide Level 25.1 MEQ/L Anion Gap 7 MEQ/L Estimat Glomerular Filtration Rate 79 ML/MIN Total Creatine Kinase 43 U/L Troponin I 0.09 NG/ML 1.65 NG/ML MDM Medical Decision Making Medical Screen Exam Complete: Yes Emergency Medical Condition: Yes Medical Record Reviewed: Yes Interpretation(s) ECG shows sinus bradycardia at [address] elevation or depression. Differential Diagnosis ACS versus aneurysm versus STEMI versus NSTEMI versus pneumonia versus PE Narrative Course Patient is a 71-year-old female status post CABG, who comes in complaining of chest pain. Exam shows no acute abnormalities. IV established, labs sent. Patient connected to the director enterprise systems. Labs show a troponin of 0.09. I spoke with Dr. Baker regarding this, he says this may be from her recent procedure, however he suggests a second troponin at 6 hours to make sure. Patient was given aspirin. CTA of the chest performed shows no acute abnormalities. Dr. Buck of CT surgery came to see the patient and feels she is not having any complications from the surgery. Her second troponin came back at 1.65. At this time I spoke with Dr. Baker again who agrees with starting the patient on heparin. She'll be admitted for further management. Diagnosis Primary Impression: NSTEMI (non-ST elevated myocardial infarction) Admitting Information Admitting Physician Requests: Admit Condition: Stable Tish Butler MD Apr 21, 2017 16:23
[2017-04-21] MEDS ORDERED: SENNOSIDES 8.6 MG TAB PO PRN (17:00)
[2017-04-21] MEDS ORDERED: SODIUM CHLORIDE 0.9% FLUSH 10 ML FLUSH IV FLUSH PRN (17:00)
[2017-04-21] MEDS ORDERED: ACETAMINOPHEN 325 MG TAB PO PRN (17:00)
[2017-04-21] MEDS ORDERED: ONDANSETRON HCL 4 MG/2 ML VIAL IVP PRN (17:00)
[2017-04-21] MEDS ORDERED: BISACODYL 10 MG SUPP RECTAL PRN (17:00)
[2017-04-21] MEDS ORDERED: HYDROmorphone HCL PF 1 MG/ML VIAL IV PUSH PRN (17:00)
[2017-04-21] MEDS ORDERED: MAGNESIUM HYDROXIDE SUSP 30 ML CUP PO PRN (17:00)
[2017-04-21] MEDS ORDERED: NALOXONE HCL 0.4 MG/ML AMP IV PUSH PRN (17:00)
--- NOTE | 2017-04-21 17:09 | PD.CONS ---
HPI Consult Requested By Primary Care Physician Cleopatra Chandler MD History of Present Illness 71 y/o F with severe 3 vessel CAD s/p recent CABG x4, HTN, HLD, that follows with Dr. Ivey that presents for evaluation of acute onset of substernal chest discomfort. She has ruled in for ACS by cardiac markers. Chest pain was relieved in the ER with Dilaudid. Cardiology consulted for NSTEMI. Review of Systems Consitutional: DENIES: Fatigue, Fever, Chills, Weight gain, Weight loss Eyes: DENIES: Amaurosis Fugax, Change in vision HEENT: DENIES: Lightheadedness, Change in hearing Respiratory: DENIES: See HPI, Cough, Snoring, Shortness of breath, Wheezing, Sputum production Cardiovascular: COMPLAINS OF: Chest pain, DENIES: See HPI, Palpitations, Syncope, Tachycardia Gastrointestinal: DENIES: Nausea, Vomiting, Change in bowel habits, Reflux, Bloody stools, Melena Genitourinary: DENIES: Urinary incontinence, Difficulty voiding Integumentary: DENIES: Rash Neurologic: DENIES: Tingling or numbness, Memory problems, Poor Balance, Stroke symptoms Musculoskeletal: DENIES: Joint pain, Muscle pain, Limited range of motion, Back pain Psychiatric: DENIES: Anxiety, Depression, Sleep disturbances Hematologic: DENIES: Bruising tendencies, Bleeding tendencies Endocrine: DENIES: Weight gain, Weight loss, Thyroid disease Past Family Social History Allergies: Coded Allergies: meperidine (Verified Adverse Reaction, Severe, VOMITING, 04/21/17) codeine (Verified Adverse Reaction, Intermediate, Vomiting, 04/21/17) Uncoded Allergies: statin (Adverse Reaction, Intermediate, myopathy, 04/21/17) myyopathy Past Medical History 1. Coronary artery disease 2. Hyperlipidemia 3. Hypertension 4. Osteoarthritis 5. Osteoporosis. 6. Parkinson's. 7. Hypothyroidism Past Surgical History 1. CABG x4. 2. Cholecystectomy. 3. Tonsillectomy an adenoidectomy. 4. Bilateral tubal ligation. 5. Left total hip replacement (2013). 6. Previous stenting of the RCA and LAD around 2006 in [place], [place]. Reported Medications Reported Meds & Active Scripts Active Ferrous Sulfate 325 Mg (65 Mg Iron) Tablet 325 Mg PO BIDPC Medrol Dosepak (Methylprednisolone) 4 Mg Dspk 4 Mg PO DIRECTED Per Pharmacist direction Thera M Plus (Multivitamins/Minerals Therapeutic) 1 Tab 1 Tab PO DAILY Synthroid (Levothyroxine Sodium) 50 Mcg Tab 50 Mcg PO DAILY@0600 Dok (Docusate Sodium) 100 Mg Cap 100 Mg PO BID Carbidopa-Levodopa 25-100 Mg Tab 1 Tab PO TID Oxycodone-Acetaminophen 5-325 mg Tab 1 Tab PO Q4HR PRN Metoprolol Tartrate 25 Mg Tab 12.5 Mg PO Q12HR Reported Amlodipine (Amlodipine Besylate) 2.5 Mg Tab 2.5 Mg PO DAILY Alprazolam 0.25 Mg Tab 0.25 Mg PO DAILY PRN Cymbalta DR (Duloxetine HCl) 60 Mg Capdr 60 Mg PO HS Aspirin 81 (Aspirin) 81 Mg Tabdr 81 Mg PO DAILY Fosamax (Alendronate Sodium) 70 Mg Tab 70 Mg PO Q7D Active Ordered Medications Current Medications Medications (Trade) Dose Ordered Sig/Andrew Route Start Time Stop Time Status Last Admin (NS Flush) 2 ml UNSCH PRN IVF 04/21/17 08:00 04/21/17 08:19 (Heparin Inj) 5,000 units UNSCH PRN IV PUSH 04/21/17 22:15 (Heparin Inj) 2,500 units UNSCH PRN IV PUSH 04/21/17 22:15 Heparin Sodium/ Dextrose 250 ml @ 9.12 mls/hr TITRATE PRN IV 04/21/17 16:15 04/21/17 16:26 (NS Flush) 2 ml UNSCH PRN IV FLUSH 04/21/17 17:00 UNV (NS Flush) 2 ml BID IV FLUSH 04/21/17 21:00 UNV (Tylenol) 650 mg Q4H PRN PO 04/21/17 17:00 UNV (Zofran Inj) 4 mg Q6H PRN IVP 04/21/17 17:00 UNV (Narcan Inj) 0.4 mg UNSCH PRN IV PUSH 04/21/17 17:00 UNV (Beverly-Colace) 1 tab BID PO 04/21/17 21:00 UNV (Milk Of Magnesia Liq) 30 ml Q12H PRN PO 04/21/17 17:00 UNV (Senokot) 17.2 mg Q12H PRN PO 04/21/17 17:00 UNV (Dulcolax Supp) 10 mg DAILY PRN RECTAL 04/21/17 17:00 UNV (Corcoran 7.5-325 Mg) 1 tab Q6H PRN PO 04/21/17 17:00 UNV (Dilaudid Pf Inj) 0.5 mg Q4H PRN IV PUSH 04/21/17 17:00 UNV (Xanax) 0.25 mg DAILY PRN PO 04/21/17 17:00 UNV (Norvasc) 2.5 mg DAILY PO 04/22/17 09:00 UNV (Ecotrin Ec) 81 mg DAILY PO 04/22/17 09:00 UNV (Sinemet 25-100 Mg) 1 tab TID PO 04/21/17 18:00 UNV (Cymbalta Dr) 60 mg HS PO 04/21/17 21:00 UNV (Ferrous Sulfate) 325 mg BIDPC PO 04/21/17 18:00 UNV (Synthroid) 50 mcg DAILY@0600 PO 04/22/17 06:00 UNV (Lopressor) 12.5 mg Q12HR PO 04/21/17 21:00 UNV (Deltasone) 20 mg DAILY PO 04/21/17 17:15 UNV Family History Per the patient, there is extensive history of coronary artery disease and myocardial infarction within the family. Social History The patient previously smoked into her late 20s. She smoked two packs a day for approximately 10 years. She drinks one glass of red wine per night. Denies illicit drug abuse. Physical Exam Vital Signs Vital Signs Date Time Temp Pulse Resp B/P (MAP) Pulse Ox O2 Delivery O2 Flow Rate FiO2 04/21/17 16:35 97.8 59 17 113/68 (83) 98 Room Air 04/21/17 12:16 97.7 54 17 126/82 (97) 98 Room Air 04/21/17 10:19 97.8 55 17 132/74 (93) 96 Room Air 04/21/17 09:28 17 04/21/17 08:57 60 17 182/87 (118) 96 Room Air 04/21/17 08:24 17 04/21/17 08:05 96 Room Air 04/21/17 08:05 17 96 Room Air 04/21/17 08:04 59 17 193/91 (125) 96 Room Air 185/96 (125) 04/21/17 08:00 58 17 96 Room Air 04/21/17 07:57 97.8 58 17 193/91 (125) 96 Physical Exam GENERAL: Well-nourished, well-developed patient. SKIN: Warm and dry. HEAD: Normocephalic. EYES: No scleral icterus. No injection or drainage. NECK: Supple, trachea midline. No JVD or lymphadenopathy. CARDIOVASCULAR: Regular rate and rhythm without murmurs, gallops, or rubs. RESPIRATORY: Breath sounds equal bilaterally. No accessory muscle use. GASTROINTESTINAL: Abdomen soft, non-tender, nondistended. EXTREMITIES: No cyanosis, or + edema. NEUROLOGICAL: Awake, alert, and oriented x 3. Non-focal. Laboratory Laboratory Tests Test 04/21/17 08:00 04/21/17 14:00 White Blood Count 11.1 Red Blood Count 3.45 Hemoglobin 10.4 Hematocrit 31.7 Mean Corpuscular Volume 92.0 Mean Corpuscular Hemoglobin 30.0 Mean Corpuscular Hemoglobin Concent 32.6 Red Cell Distribution Width 19.4 Platelet Count 275 Mean Platelet Volume 8.5 Neutrophils (%) (Auto) 86.4 Lymphocytes (%) (Auto) 8.1 Monocytes (%) (Auto) 5.3 Eosinophils (%) (Auto) 0.1 Basophils (%) (Auto) 0.1 Neutrophils # (Auto) 9.6 Lymphocytes # (Auto) 0.9 Monocytes # (Auto) 0.6 Eosinophils # (Auto) 0.0 Basophils # (Auto) 0.0 CBC Comment AUTO DIFF Differential Total Cells Counted 100 Neutrophils % (Manual) 80 Band Neutrophils % 3 Lymphocytes % 11 Monocytes % 5 Neutrophils # (Manual) 9.3 Metamyelocytes 1 Nucleated Red Blood Cells 1 Differential Comment FINAL DIFF MANUAL Platelet Estimate NORMAL Platelet Morphology Comment NORMAL Red Cell Morphology Comment NORMAL Prothrombin Time 11.4 Prothromb Time International Ratio 1.0 Activated Partial Thromboplast Time 24.5 Blood Urea Nitrogen 14 Creatinine 0.73 Random Glucose 117 Total Protein 6.1 Albumin 3.0 Calcium Level 8.7 Alkaline Phosphatase 114 Aspartate Amino Transf (AST/SGOT) 16 Alanine Aminotransferase (ALT/SGPT) 47 Total Bilirubin 1.0 Sodium Level 142 Potassium Level 4.2 Chloride Level 110 Carbon Dioxide Level 25.1 Anion Gap 7 Estimat Glomerular Filtration Rate 79 Total Creatine Kinase 43 Troponin I 0.09 1.65 Result Diagram: 04/21/1779904/21/17799 Imaging Last Impressions Chest X-Ray 04/21/17799 Signed Impressions: Service Date/Time: Friday, April 21, 2017 08:12 - CONCLUSION: 1. There are small areas of consolidation in the lung bases. This is new compared to previous of 04/19/17. An underlying pneumonia cannot be excluded. Andrea Luna MD Aorta CTA 04/21/17799 Signed Impressions: Service Date/Time: Friday, April 21, 2017 09:15 - CONCLUSION: 1. No aneurysm or dissection. 2. Small bilateral pleural effusions with associated passive atelectasis. 3. Prior cholecystectomy. 4. Colonic diverticulosis. Aniceto Rivera Jr., MD Assessment and Plan Problem List: (1) NSTEMI (non-ST elevated myocardial infarction) ICD Codes: I21.4 - Non-ST elevation (NSTEMI) myocardial infarction Plan: 71 y/o F with NSTEMI and recent CABG. Troponin trending up concerning for ?early graft failure. No PE per radiology in the Aorta CTA. Currently she is chest pain. Presentation concerning for graft failure. Thus it would be reasonable to consider LHC to further assess patency of grafts and/or worsening of paimiut CAD. Risk benefits of LHC/PCI including but not limited to neurovascular trauma, kidney failure, bleeding, infection, stoke, emergent CABG and have been explained. She understand risk and is willing to proceed. Recommendations: 1. CT consult Dr. Garcia 2. Cont Heparin drip 3. Start ASA, Plavix, BB, ACEi and Imdur 4. Keep NPO after midnight for LHC in AM. Thank you for the opportunity to take par in the care of this patient. Further management to be determined (2) Hypertension ICD Codes: I10 - Hypertension Status: Chronic (3) Coronary arteriosclerosis ICD Codes: I25.10 - Coronary arteriosclerosis Status: Acute (4) Anemia ICD Codes: D64.9 - Anemia Status: Acute (5) S/P CABG x 4 ICD Codes: Z95.1 - Presence of aortocoronary bypass graft John Rolle MD Apr 21, 2017 17:09
[2017-04-21] MEDS: predniSONE 20 MG TAB PO SCH (17:26)
[2017-04-21] MEDS: FERROUS SULFATE 325 MG (65 MG ELEMENTAL IRON) TAB PO SCH (17:28)
[2017-04-21] MEDS ORDERED: PILL SPLITTER OTHER PRN (17:30)
--- NOTE | 2017-04-21 17:34 | HHI.HP ---
HPI Service [facility] Hospitalists Primary Care Physician Cleopatra Chandler MD Admission Diagnosis NSTEMI Chief Complaint: cp Travel History International Travel<30 Days: No Contact w/Intl Traveler <30 Da: No Traveled to Known Affected Are: No History of Present Illness Pt is 71 yo with cad s/p cabg x 4 on 04/14. She initially presented with unstable angina. she was active and played alot of tennis. LHC revealed MV dz. She had 3 prior coronary stents. Pt went for 4v cabg on 04/14. She was in cardiac icu thereafter and had alot of problems with hypotension. She was placed on stress dose steroids which were being weaned at the time of d/c. She was discharged on 04/19 and came back to ED for left leg graft site bleeding. Then came to ED today for ongoing chest pain with sob. In ED her troponins trended up concerning for nstemi. Heparin initiated and pt seen by CTS and cardiology. Review of Systems Other cp sob left leg bleeding Past Family Social History Past Medical History Coronary artery disease Hyperlipidemia Hypertension Osteoarthritis Osteoporosis questionable Parkinson's Hypothyroidism Cholecystectomy Distant history of tonsillectomy and adenoidectomy Bilateral tubal ligation Left total hip replacement in 2013 Cardiac catheter with 3 stents placed in the approximately 2006 cabg x 4 04/14/17 Reported Medications Reported Meds & Active Scripts Active Ferrous Sulfate 325 Mg (65 Mg Iron) Tablet 325 Mg PO BIDPC Medrol Dosepak (Methylprednisolone) 4 Mg Dspk 4 Mg PO DIRECTED Per Pharmacist direction Thera M Plus (Multivitamins/Minerals Therapeutic) 1 Tab 1 Tab PO DAILY Synthroid (Levothyroxine Sodium) 50 Mcg Tab 50 Mcg PO DAILY@0600 Dok (Docusate Sodium) 100 Mg Cap 100 Mg PO BID Carbidopa-Levodopa 25-100 Mg Tab 1 Tab PO TID Oxycodone-Acetaminophen 5-325 mg Tab 1 Tab PO Q4HR PRN Metoprolol Tartrate 25 Mg Tab 12.5 Mg PO Q12HR Reported Amlodipine (Amlodipine Besylate) 2.5 Mg Tab 2.5 Mg PO DAILY Alprazolam 0.25 Mg Tab 0.25 Mg PO DAILY PRN Cymbalta DR (Duloxetine HCl) 60 Mg Capdr 60 Mg PO HS Aspirin 81 (Aspirin) 81 Mg Tabdr 81 Mg PO DAILY Fosamax (Alendronate Sodium) 70 Mg Tab 70 Mg PO Q7D Allergies: Coded Allergies: meperidine (Verified Adverse Reaction, Severe, VOMITING, 04/21/17) codeine (Verified Adverse Reaction, Intermediate, Vomiting, 04/21/17) Uncoded Allergies: statin (Adverse Reaction, Intermediate, myopathy, 04/21/17) myyopathy Family History cad/hyperlipidemia Social History 2ppd tob x 10yrs in her 20s glass red wine daily Physical Exam Vital Signs heart reg lung cta abd s/nt ext left leg graft site oozing blood. no pitting Vital Signs Date Time Temp Pulse Resp B/P (MAP) Pulse Ox O2 Delivery O2 Flow Rate FiO2 04/21/17 16:35 97.8 59 17 113/68 (83) 98 Room Air 04/21/17 12:16 97.7 54 17 126/82 (97) 98 Room Air 04/21/17 10:19 97.8 55 17 132/74 (93) 96 Room Air 04/21/17 09:28 17 04/21/17 08:57 60 17 182/87 (118) 96 Room Air 04/21/17 08:24 17 04/21/17 08:05 96 Room Air 04/21/17 08:05 17 96 Room Air 04/21/17 08:04 59 17 193/91 (125) 96 Room Air 185/96 (125) 04/21/17 08:00 58 17 96 Room Air 04/21/17 07:57 97.8 58 17 193/91 (125) 96 Laboratory Laboratory Tests Test 04/21/17 08:00 04/21/17 14:00 White Blood Count 11.1 Red Blood Count 3.45 Hemoglobin 10.4 Hematocrit 31.7 Mean Corpuscular Volume 92.0 Mean Corpuscular Hemoglobin 30.0 Mean Corpuscular Hemoglobin Concent 32.6 Red Cell Distribution Width 19.4 Platelet Count 275 Mean Platelet Volume 8.5 Neutrophils (%) (Auto) 86.4 Lymphocytes (%) (Auto) 8.1 Monocytes (%) (Auto) 5.3 Eosinophils (%) (Auto) 0.1 Basophils (%) (Auto) 0.1 Neutrophils # (Auto) 9.6 Lymphocytes # (Auto) 0.9 Monocytes # (Auto) 0.6 Eosinophils # (Auto) 0.0 Basophils # (Auto) 0.0 CBC Comment AUTO DIFF Differential Total Cells Counted 100 Neutrophils % (Manual) 80 Band Neutrophils % 3 Lymphocytes % 11 Monocytes % 5 Neutrophils # (Manual) 9.3 Metamyelocytes 1 Nucleated Red Blood Cells 1 Differential Comment FINAL DIFF MANUAL Platelet Estimate NORMAL Platelet Morphology Comment NORMAL Red Cell Morphology Comment NORMAL Prothrombin Time 11.4 Prothromb Time International Ratio 1.0 Activated Partial Thromboplast Time 24.5 Blood Urea Nitrogen 14 Creatinine 0.73 Random Glucose 117 Total Protein 6.1 Albumin 3.0 Calcium Level 8.7 Alkaline Phosphatase 114 Aspartate Amino Transf (AST/SGOT) 16 Alanine Aminotransferase (ALT/SGPT) 47 Total Bilirubin 1.0 Sodium Level 142 Potassium Level 4.2 Chloride Level 110 Carbon Dioxide Level 25.1 Anion Gap 7 Estimat Glomerular Filtration Rate 79 Total Creatine Kinase 43 Troponin I 0.09 1.65 Result Diagram: 04/21/17 0804/21/17 08 Caprini VTE Risk Assessment Caprini VTE Risk Assessment: Mod/High Risk (score >= 2) Caprini Risk Assessment Model Point Value = 1 Point Value = 2 Point Value = 3 Point Value = 5 Age 41-60 Minor surgery BMI > 25 kg/m2 Swollen legs Varicose veins or History of unexplained or recurrent spontaneous Oral contraceptives or hormone replacement Sepsis (< 1 month) Serious lung disease, including pneumonia (< 1 month) Abnormal pulmonary function Acute myocardial infarction Congestive heart failure (< 1 month) History of inflammatory bowel disease Medical patient at bed rest Age 61-74 Arthroscopic surgery Major open surgery (> 45 min) Laparoscopic surgery (> 45 min) Malignancy Confined to bed (> 72 hours) Immobilizing plaster cast Central venous access Age >= 75 History of VTE Family history of VTE Factor V Leiden Prothrombin [id number] Lupus anticoagulant Anticardiolipin antibodies Elevated serum homocysteine Heparin-induced thrombocytopenia Other congenital or acquired thrombophilia Stroke (< 1 month) Elective arthroplasty Hip, pelvis, or leg fracture Acute spinal cord injury (< 1 month) Prophylaxis Regimen Total Risk Factor Score Risk Level Prophylaxis Regimen 0-1 Low Early ambulation 2 Moderate Order ONE of the following: *Sequential Compression Device (SCD) *Heparin 5000 units SQ BID 3-4 Higher Order ONE of the following medications: *Heparin 5000 units SQ TID *Enoxaparin/Lovenox 40 mg SQ daily (WT < 150 kg, CrCl > 30 mL/min) *Enoxaparin/Lovenox 30 mg SQ daily (WT < 150 kg, CrCl > 10-29 mL/min) *Enoxaparin/Lovenox 30 mg SQ BID (WT < 150 kg, CrCl > 30 mL/min) AND/OR *Sequential Compression Device (SCD) 5 or more Highest Order ONE of the following medications: *Heparin 5000 units SQ TID (Preferred with Epidurals) *Enoxaparin/Lovenox 40 mg SQ daily (WT < 150 kg, CrCl > 30 mL/min) *Enoxaparin/Lovenox 30 mg SQ daily (WT < 150 kg, CrCl > 10-29 mL/min) *Enoxaparin/Lovenox 30 mg SQ BID (WT < 150 kg, CrCl > 30 mL/min) AND *Sequential Compression Device (SCD) Assessment and Plan Problem List: (1) NSTEMI (non-ST elevated myocardial infarction) ICD Codes: I21.4 - Non-ST elevation (NSTEMI) myocardial infarction Status: Acute Plan: 1. cad. cabg x 4 04/14 cad with prior 1 lad, 2 rca stents discharged on 04/19 had alot of post op hypotension problems and was on stress dose steroids..still tapering. also left leg graft site oozing presenting now with cp and nstemi cardiology and CTS following heparing gtt. asa. plavix. bb as tolerated ?[facility] tomorrow She had CT Aorta today. I call radiologist and reviewed with him...no evidence for a PE wound care. any bleeding issue with graft site per CTS wean steroid to off. note: pt very upset over her condition. I have spent alot of time with her and ...addressing all concerns and questions. (2) S/P CABG x 4 ICD Codes: Z95.1 - Presence of aortocoronary bypass graft Status: Acute (3) Parkinsons ICD Codes: G20 - Parkinson's disease Status: Chronic (4) Hypothyroidism ICD Codes: E03.9 - Hypothyroidism Status: Chronic (5) Hypertension ICD Codes: I10 - Hypertension Status: Chronic Physician Certification 2 Midnight Certification Type: Admission for Inpatient Services Order for Inpatient Services 3The services are ordered in accordance with Medicare regulations or non- Medicare payer requirements, as applicable. In the case of services not specified as inpatient-only, they are appropriately provided as inpatient services in accordance with the 2-midnight benchmark. Estimated LOS (days): 3 3 days is the estimated time the patient will need to remain in the hospital, assuming treatment plan goals are met and no additional complications. Post-Hospital Plan: Not yet determined Patrick Rodriguez MD Apr 21, 2017 17:34
[2017-04-21] MEDS: CLOPIDOGREL 75 MG TAB PO SCH (17:41)
[2017-04-21] MEDS: CARBIDOPA/LEVODOPA 25 MG/100 MG TAB PO SCH (17:41)
--- NOTE | 2017-04-21 21:48 | EKG ---
Date Performed: 04/21/2017 Time Performed: 08:07:27 PTAGE: 71 years EKG: SINUS BRADYCARDIA NONSPECIFIC T-WAVE ABNORMALITY ABNORMAL ECG PREVIOUS TRACING : 04/15/2017 05.54 Compared to the previous tracing paced rhythm no longer pre sent DOCTOR: Manda Kumar Interpretating Date/Time 04/21/2017 21:47:18
[2017-04-21] MEDS: ALPRAZolam 0.25 MG TAB PO PRN (22:09)
[2017-04-21] MEDS: METOPROLOL TARTRATE 25 MG TAB PO SCH (22:09)
[2017-04-21] MEDS: DOCUSATE SODIUM 50 MG/SENNA 8.6 MG TAB PO SCH (22:09)
[2017-04-21] MEDS: ACETAMINOPHEN/HYDROcodone 325 MG/7.5 MG TAB PO PRN (22:09)
[2017-04-21] MEDS: SODIUM CHLORIDE 0.9% FLUSH 10 ML FLUSH IV FLUSH SCH (22:10)
[2017-04-21] MEDS ORDERED: HEPARIN SODIUM - IV 10,000 UNITS/10 ML VIAL IV PUSH PRN ×2 (22:15)
[2017-04-21] MEDS: DULoxetine HCl DR 60 MG CAP PO SCH (22:16)
[2017-04-21 23:42] LABS: APTT (PATIENT) 31.5 SEC (24.3-30.1)
[2017-04-22] VITALS (20 sets, daily range): BP systolic 92–168; BP diastolic 56–95; PULSE 50–62; RESP 16–18; TEMP 97.4–98.4; O2SAT 92–97
[2017-04-22 05:07] LABS: BASOPHIL % 0.2 % (0.0-2.0); EOSINOPHIL % 0.5 % (0.0-4.0); HEMATOCRIT 27.7 % (35.0-46.0); LYMPH % 9.6 % (9.0-44.0); LYMPHOCYTE # 0.9 TH/MM3 (1.0-4.8); MEAN CELL VOLUME 92.9 FL (80.0-100.0); MEAN CORPUSCULAR HEMOGLOBIN 31.4 PG (27.0-34.0); MEAN CORPUSCULAR HGB CONC 33.8 % (32.0-36.0); MONO % 5.3 % (0.0-8.0); NEUT % 84.4 % (16.0-70.0); PLATELET COUNT 244 TH/MM3 (150-450); RED BLOOD COUNT 2.98 MIL/MM3 (4.00-5.30); RED CELL DISTRIBUTION WIDTH 19.2 % (11.6-17.2); WHITE BLOOD COUNT 9.5 TH/MM3 (4.0-11.0)
[2017-04-22 05:12] LABS: HEMO FLAGS AUTO DIFF
[2017-04-22 05:19] LABS: APTT (PATIENT) 52.7 SEC (24.3-30.1)
[2017-04-22 05:29] LABS: ANION GAP 8 MEQ/L (5-15); AST (GOT) 19 U/L (15-37); BICARBONATE 22.7 MEQ/L (21.0-32.0); BLOOD UREA NITROGEN 15 MG/DL (7-18); CHLORIDE 110 MEQ/L (98-107); GLOMERULAR FILTRATION RATE 73 ML/MIN (>89); POTASSIUM 4.3 MEQ/L (3.5-5.1); SODIUM (NA) 141 MEQ/L (136-145)
[2017-04-22 05:30] LABS: ALT (GPT) 58 U/L (10-53)
[2017-04-22 05:32] LABS: ALKALINE PHOSPHATASE 85 U/L (45-117); TOTAL BILIRUBIN ADULT 0.5 MG/DL (0.2-1.0)
[2017-04-22] MEDS: LEVOTHYROXINE SODIUM 50 MCG TAB PO SCH (05:43)
[2017-04-22] MEDS: ACETAMINOPHEN/HYDROcodone 325 MG/7.5 MG TAB PO PRN ×3 (06:22→22:00)
[2017-04-22 06:49] LABS: BANDS 8 % (0-6); NEUTROPHIL # MANUAL DIFF 8.5 TH/MM3 (1.8-7.7); PLATELET ESTIMATE SMEAR NORMAL (NORMAL); PLATELET MORPHOLOGY NORMAL (NORMAL); POLYS (SEG NEUTROPHILS) 81 % (16-70); SCAN/DIFF FINAL DIFF MANUAL; WBC DIFF SAMPLE 100
[2017-04-22] MEDS: predniSONE 20 MG TAB PO SCH (08:55)
[2017-04-22] MEDS: METOPROLOL TARTRATE 25 MG TAB PO SCH ×3 (08:55→21:59)
[2017-04-22] MEDS: CLOPIDOGREL 75 MG TAB PO SCH (08:55)
[2017-04-22] MEDS: amLODIPine BESYLATE 5 MG TAB PO SCH (08:56)
[2017-04-22] MEDS: DOCUSATE SODIUM 50 MG/SENNA 8.6 MG TAB PO SCH ×2 (08:56→21:59)
[2017-04-22] MEDS: FERROUS SULFATE 325 MG (65 MG ELEMENTAL IRON) TAB PO SCH (08:56)
[2017-04-22] MEDS: ASPIRIN EC 81 MG TABEC PO SCH (08:56)
[2017-04-22] MEDS: CARBIDOPA/LEVODOPA 25 MG/100 MG TAB PO SCH ×4 (08:56→22:02)
[2017-04-22] MEDS: SODIUM CHLORIDE 0.9% FLUSH 10 ML FLUSH IV FLUSH SCH ×2 (08:57→22:02)
--- NOTE | 2017-04-22 09:38 | HHI.PR ---
Subjective Remarks 1 or 2/10 cp. anxious Objective Vitals anxious no labored breathing heart reg lung cta abd s/nt ext no pitting left leg bandages/ant chest bandages Vital Signs Date Time Temp Pulse Resp B/P (MAP) Pulse Ox O2 Delivery O2 Flow Rate FiO2 04/22/17 07:01 50 04/22/17 06:01 54 04/22/17 05:05 51 04/22/17 04:06 51 04/22/17 03:46 92 04/22/17 03:21 97.8 56 16 92/56 (68) 95 04/22/17 03:19 56 04/22/17 02:32 51 04/22/17 01:12 51 04/22/17 00:06 52 04/21/17 23:38 55 04/21/17 23:37 97.7 57 16 113/60 (77) 97 04/21/17 23:12 18 04/21/17 22:42 60 04/21/17 21:42 98.4 66 18 125/74 (91) 96 04/21/17 20:47 04/21/17 19:40 59 20 103/67 (79) 94 Room Air 04/21/17 18:54 98 04/21/17 16:35 97.8 59 17 113/68 (83) 98 Room Air 04/21/17 12:16 97.7 54 17 126/82 (97) 98 Room Air 04/21/17 10:19 97.8 55 17 132/74 (93) 96 Room Air Result Diagram: 04/22/17 0436 04/22/17 0436 A/P Problem List: (1) NSTEMI (non-ST elevated myocardial infarction) ICD Codes: I21.4 - Non-ST elevation (NSTEMI) myocardial infarction Status: Acute Plan: 1. cad. cabg x 4 04/14 cad with prior 1 lad, 2 rca stents discharged on 04/19 had alot of post op hypotension problems and was on stress dose steroids..still tapering. also left leg graft site oozing presenting now with cp and nstemi cardiology and CTS following heparing gtt. asa. plavix. bb as tolerated ?LHC today. She had CT Aorta on 04/21. I call radiologist and reviewed with him...no evidence for a PE wound care. any bleeding issue with graft site per CTS wean steroid to off. note: pt very upset over her condition. I have spent alot of time with her and ...addressing all concerns and questions. (2) S/P CABG x 4 ICD Codes: Z95.1 - Presence of aortocoronary bypass graft Status: Acute (3) Parkinsons ICD Codes: G20 - Parkinson's disease Status: Chronic (4) Hypothyroidism ICD Codes: E03.9 - Hypothyroidism Status: Chronic (5) Hypertension ICD Codes: I10 - Hypertension Status: Chronic Patrick Rodriguez MD Apr 22, 2017 09:38
[2017-04-22] MEDS ORDERED: PNEUMOCOCCAL POLYVALENT INJ 25 MCG/0.5 ML SYR IM ONE (10:00)
[2017-04-22] MEDS ORDERED: INFLUENZA VIRUS VACCINE (QUADRIVALENT) 0.5 ML SYR IM ONE (10:00)
[2017-04-22] MEDS ORDERED: HYDROmorphone HCL PF 0.5 MG/0.5 ML SYRINGE IV PUSH PRN (12:00)
[2017-04-22] MEDS ORDERED: IOHEXOL 350 MG/ML 50 ML BTL (for Cath Lab) OTHER ONE (12:47)
[2017-04-22 16:13] LABS: APTT (PATIENT) 42.2 SEC (24.3-30.1)
--- NOTE | 2017-04-22 17:06 | PD.CAR.PN ---
CVT Progress Note Subjective/Hospital Course: 71 yo with CAD s/p cabg x 4 on 04/14, discharged 04/20. Initially presented with unstable angina. she was active and played alot of tennis. LHC revealed MV dz, hx of CAD with 3 prior coronary stents. postop course included hypotension requiring pressors, limited echo 04/16 EF 60%. low cortisol level , placed on stress dose steroids, dc on taper dose po steroids, presented to ED this past Sat with oozing from her left lower BRIANNA site, dc home , returned Friday night with chest pain and elevated troponins , concern for NSTEMI, pt has been seen and eval by Dr Baker and plan for possible re-cath today , pt was placed on plavix yesterday , continues on BB , ASA, intolerant to statins. Heparin gtt EF 60% PMH: CAD HLP, HTN, Osteoarthritis, Osteoporosis , questionable Parkinson's on Sinemet ( follows with Dr Covarrubias) , hypothyroidism 04/22 waiting on eval for cath today currently pain free Objective: GENERAL: SKIN: Warm and dry. sternal incision intact and well approximated, eccymosis to left thigh, dressing in place to prior BRIANNA site, minimal serous drainage HEAD: Normocephalic. EYES: No scleral icterus. No injection or drainage. NECK: Supple, trachea midline. No JVD or lymphadenopathy. CARDIOVASCULAR: Regular rate and rhythm without murmurs, gallops, or rubs. RESPIRATORY: Breath sounds equal bilaterally. No accessory muscle use. GASTROINTESTINAL: Abdomen soft, non-tender, nondistended. MUSCULOSKELETAL: No cyanosis, or edema. BACK: Nontender without obvious deformity. No CVA tenderness. Vital Signs Date Time Temp Pulse Resp B/P (MAP) Pulse Ox O2 Delivery O2 Flow Rate FiO2 04/22/17 11:30 98.1 55 18 140/77 (98) 93 04/22/17 11:00 53 04/22/17 10:26 94 04/22/17 08:15 98.0 52 18 155/87 (109) 94 04/22/17 07:01 50 04/22/17 06:01 54 04/22/17 05:05 51 04/22/17 04:06 51 04/22/17 03:46 92 04/22/17 03:21 97.8 56 16 92/56 (68) 95 04/22/17 03:19 56 10/17/17 02:32 51 04/22/17 01:12 51 04/22/17 00:06 52 04/21/17 23:38 55 04/21/17 23:37 97.7 57 16 113/60 (77) 97 04/21/17 23:12 18 04/21/17 22:42 60 04/21/17 21:42 98.4 66 18 125/74 (91) 96 04/21/17 20:47 04/21/17 19:40 59 20 103/67 (79) 94 Room Air 04/21/17 18:54 98 Labs: Laboratory Tests Test 04/22/17 15:29 Activated Partial Thromboplast Time 42.2 SEC (24.3-30.1) Result Diagram: 04/22/17 0436 04/22/17 043 (1) NSTEMI (non-ST elevated myocardial infarction) Plan: 71 y/o F with NSTEMI and recent CABG. Troponin trending up concerning for ?early graft failure. No PE per radiology in the Aorta CTA. Currently she is chest pain. Presentation concerning for graft failure. Thus it would be reasonable to consider LHC to further assess patency of grafts and/or worsening of eyak CAD. Risk benefits of LHC/PCI including but not limited to neurovascular trauma, kidney failure, bleeding, infection, stoke, emergent CABG and have been explained. She understand risk and is willing to proceed. Recommendations: 1. CT consult Dr. Garcia 2. Cont Heparin drip 3. Start ASA, Plavix, BB, ACEi and Imdur 4. Keep NPO after midnight for LHC in AM. Thank you for the opportunity to take par in the care of this patient. Further management to be determined (2) Hypertension Plan: on Norvasc and BB (3) Coronary arteriosclerosis (4) Anemia (5) S/P CABG x 4 Plan: ASA, plavix BB, intolerant to statins Rebecca House Apr 22, 2017 17:06
[2017-04-22] MEDS ORDERED: HEPARIN-NS/PF INJ 1,000 ML ONE (17:47)
[2017-04-22] MEDS ORDERED: SODIUM CHLORID 0.9% 500 ML INJ 500 ML ONE (17:49)
[2017-04-22] MEDS ORDERED: VERAPAMIL HCL 5 MG/2 ML VIAL ONE (17:55)
[2017-04-22] MEDS ORDERED: MIDAZOLAM HCL 2 MG/2 ML VIAL ONE (17:55)
[2017-04-22] MEDS ORDERED: HEPARIN SODIUM - IV 10,000 UNITS/10 ML VIAL ONE (17:55)
[2017-04-22] MEDS ORDERED: NITROGLYCERIN INJ 5 ML ONE (17:57)
--- NOTE | 2017-04-22 19:08 | CATHPROC ---
[facility] HIS Report Study Information Study Number Admission Scheduled Start Study Start [id number] Apr 21 2017 4:23PM 04/22/2017 Apr 22 2017 5:03PM Study Type Reading Service Left Heart Cath Cardiac Catheterization Admit Source Facility Department Other [facility] - Nurse Staff Industrial Physician and Clinical Staff Initial John Alvares Heating And Air Conditioning Mechanic Hernandez Hopkins,RN Recorder Stacey Fernandes,ERIC Scrub Maryam Madrid,RT(R) (BS) Procedures Performed Procedure Location (Site) Vessel Name Coronary Angiograms LCA Left Coronary Coronary Angiograms WHATLEY-LAD Left Coronary Coronary Angiograms SVG-PDA Right Coronary L Heart Cath Equipment Time Tapper Hand Description Size Mfg Part Number Used/Scraped TRANSDUCER, TRUWAVE [id number] 17:20 SuddenValues * Used W/STOCKCOCK *[id number] 534-520T *[id number] [id number] *[id number] 534-542T *[id number] 17:20 [email or web address] PACK, CCL CUSTOM * Used *[id number] 17:20 [email or web address] SUPPORT, ARTERIAL ADULT [id number] *[id number] Used BAND, RADIAL COMPRESSION TR [id number] 18:49 [employer] MEDICAL 24CM Used SHORT 24 *[id number] 17:20 meXBT / [employer] WIRE, 3MMJ .035 180CM 180CM Used *[id number] 17:20 NAMIC MANIFOLD, 4 PORT * Used *[id number] 17:20 NYCOMED OMNIPAQUE, 350 MG, 150ML 150ML [id number] Used [id number] 17:20 [employer] BLANKET,WARM AIR CCL * Used *[id number] SHEATH, FR6 TRANSRADIAL [id number] 17:20 TEREcoGroomer FR 6 Used SLENDER 10CM *[id number] History: Allergies Allergy Reaction meperidine VOMITING codeine Vomiting History: Risk Factors Family History of Hypertension Dyslipidemia Previous NH Previous Heart Failure Premature CAD Yes Yes No No No Prior Valve Prior PCI Prior PCIDate Prior CABG Surgery No Yes 07/07/2006 No Cerebrovascular Peripheral Artery Chronic Lung On Dialysis Diabetes Disease Disease Disease No No No No No History: Symptoms/Diagnosis Selection Items Angina-unstable History: Stress Tests Stress or Imaging Studies Performed No History: Other Current Smoker Method Quit Packs a Day Years Used Pack Years No Cigarettes 60 Years Ago 2 10 20 Labs Hgb (g/dl) Hct (%) WBC (l/cumm) Platelets (thousands) 11.60-17.00 35.00-51.00 4.00-11.00 150.00-450.00 9.4 27.7 9.5 244 Glucose (mg/dl) BUN (mg/dl) Creatinine (mg/dl) BUN:Creatinine (1:x) 74.00-106.00 7.00-18.00 0.50-1.30 10.00-20.00 149 15 0.7 21.4 Na (meq/l) K (meq/l) 136.00-145.00 3.50-5.10 141 4.3 INR (PTT:PT) 0.90-1.10 1 Troponin I (ng/ml) CPK (u/l) CPK-MB (ng/ML) 0.02-0.05 26.00-308.00 0.50-3.60 3.09 43 Not Drawn Medication Medication Total Dose (Bolus/Oral) Medication Total Dosage/Unit 1% XYLOCAINE 20 mL FENTANYL 50 mcg RADIAL COCKTAIL 5 mL (Bolus) VERSED 2 mg Medications (Bolus/Oral) Medication Time Given Dosage/Unit Administered By Reason 1% XYLOCAINE 04/22/2017 6:12:25 PM 20 mL Olivia-DipikaMalikaro 20 mL 1% XYLOCAINE given in lab by John Rolle via Subcutaneous. Ntg 200mcg Verapamil 2.5mg Heparin RADIAL COCKTAIL 04/22/2017 6:15:21 PM 5 mL (Bolus) Olivia-Malika Barro 2500U 5 mL (Bolus) RADIAL COCKTAIL given in lab by John Rolle via Radial. Using [Solution Name]. Griselda son: Ntg 200mcg Verapamil 2.5mg Heparin 2500U. VERSED 04/22/2017 6:17:52 PM 2 mg Hernandez Hopkins 2 mg VERSED given in lab by Hernandez Hopkins RN via Peripheral IV. FENTANYL 04/22/2017 6:18:20 PM 25 mcg Hernandez Hopkins 25 mcg FENTANYL given in lab by Hernandez Hopkins RN via Peripheral IV. FENTANYL 04/22/2017 6:42:33 PM 25 mcg Hernandez Hopkins 25 mcg FENTANYL given in lab by Hernandez Hokpins RN via Peripheral IV. Medication (Drip) Medication Time Given Dosage/Unit Concentration/Unit Diluent (ml) Solution IV Solutions 04/22/2017 5:42:16 PM 50 mL (IV) 500 NaCl .9 Patient arrived on IV Solutions via Peripheral IV. Pump/Drip Flow using NaCl .9. Initial Case Assessment Cardiovascular HR NIBP Chest Pain 62 135/92 0 Edema Present Skin color Skin None Normal Warm Dry Circulatory - Right Pulses Dorsalis Pedis Femoral Radial 2 2 2 Scale (0,1,2,3,4,d) Circulatory - Left Pulses Dorsalis Pedis Femoral Radial 2 2 2 Scale (0,1,2,3,4,d) Neurological State Oriented to time-place- Alert Moves all extremities person Respiration - General Respiration Rate SpO2 (%) (B/min) 20 96 Final Case Assessment Cardiovascular HR NIBP Chest Pain 58 158/86 0 Edema Present Skin color Skin None Normal Warm Dry Circulatory - Right Pulses Dorsalis Pedis Femoral Radial 2 2 2 Scale (0,1,2,3,4,d) Circulatory - Left Pulses Dorsalis Pedis Femoral Radial 2 2 2 Scale (0,1,2,3,4,d) Neurological State Oriented to time-place- Alert Moves all extremities person Respiration - General Respiration Rate SpO2 (%) (B/min) 20 96 Chronological Log Time Study Chronological Log 17:29:07 Patient arrived via Bed. 17:29:09 Patient Name, D.O.B, / Armband Verified By R.N. 17:29:10 Consent signed by the physician and the patient and verified by the Nurse Staff Industrial staff. Vitals capture started with the following parameters, Patient=Adult, Interval=5 min, Initial Pr xpcuvx=995 mmHg, 17:40:55 Deflation Rate=5 mmHg, Cuff placed on Left Arm 17:41:00 Allens test performed on the left radial and ulnar artery. 17:41:12 Patient has been NPO for More than 6Hrs. 17:41:23 A # 20 IV was noted in the Antecubital (left). Grade = 0 17:41:36 HR=63 bpm, XGMM=512/92 mmhg, SpO2=94 %, Resp=18 B/min, Pain=0, Denisse=10, Heart=2 17:41:40 A # 20 IV was noted in the Antecubital (right). Grade = 0 17:42:16 Patient arrived on IV Solutions via Peripheral IV. Pump/Drip Flow using NaCl .9. 17:42:58 History and physical on the chart or being dictated. Assessment: Initial Case, HR=62 BPM, XBMG=643/92 mmhg, Chest Pain=0, Edema=None, Color=Normal, Skin = Warm, Dry Right Pulses: Wang Ped=2, Femoral=2, Radial=2 17:43:03 Left Pulses: Wang Ped=2, Femoral=2, Radial=2 Neurological: State=Alert, Ox3, LAINEZ Respiration: Resp=20 B/min, SpO2=96 % 17:44:21 Left Radial and groin(s) prepped with 2% chlorhexidine, and draped after a 3 min. waiting t samantha. 17:47:12 HR=64 bpm, SESM=756/91 mmhg, SpO2=93.0 %, Resp=18 B/min, Pain=0, Denisse=10, Heart=2 17:49:30 MD arrived. 17:50:29 Reference ECG taken 17:51:36 HR=61 bpm, HQRO=293/93 mmhg, SpO2=92.0 %, Resp=20 B/min, Pain=0, Denisse=10, Heart=2 17:56:39 HR=61 bpm, SOJD=015/94 mmhg, SpO2=96.0 %, Resp=20 B/min, Pain=0, Denisse=10, Heart=2 18:01:42 HR=62 bpm, GECC=647/87 mmhg, SpO2=96.0 %, Resp=20 B/min, Pain=0, Denisse=10, Heart=2 18:06:41 HR=59 bpm, ITTJ=393/94 mmhg, SpO2=97.0 %, Resp=20 B/min, Pain=0, Denisse=10, Heart=2 Time Out. Correct patient, correct procedure, correct physician, power injector loaded, or not loaded with contrast with 18:09:58 surgical team present. Time Out Concurred by MD and individual staff in procedure. 18:10:15 Case Start 18:11:40 HR=64 bpm, KRWV=341/94 mmhg, SpO2=93.0 %, Resp=19 B/min 18:12:25 20 mL 1% XYLOCAINE given in lab by John Rolle via Subcutaneous. 18:13:48 Access site was Radial Artery. A SHEATH, FR6 TRANSRADIAL SLENDER 10CM FR 6 was advanced into the Radial (left) using the Percu taneous 18:14:59 technique. 5 mL (Bolus) RADIAL COCKTAIL given in lab by John Rolle via Radial. Using [Solution Name ]. Reason: Ntg 18:15:21 200mcg Verapamil 2.5mg Heparin 2500U. 18:15:57 Pressure channel 1 zeroed. 18:16:37 HR=60 bpm, UUBH=474/67 mmhg, Resp=12 B/min, Pain=0, Denisse=10, Heart=2 18:17:52 2 mg VERSED given in lab by Hernandez Hopkins, PETER via Peripheral IV. 18:18:20 25 mcg FENTANYL given in lab by Hernandez Hopkins RN via Peripheral IV. A JR 4.0 INFINITI CATHETER FR 5 was advanced over a wire. OMNIPAQUE, 350 MG, 150ML 150ML was us ed for 18:18:24 injections. Recorded Pressure: Ao, HR=60, Condition=Condition 1 18:18:37 (Aorta) Ao 118/68/89 18:19:07 The WHATLEY-LAD was injected and visualized at various angles. OMNIPAQUE, 350 MG, 150ML 150ML used. 18:21:34 HR=62 bpm, NXQA=212/75 mmhg, Resp=13 B/min, Pain=0, Denisse=10, Heart=2 18:26:35 HR=61 bpm, KLIA=050/82 mmhg, SpO2=91.0 %, Resp=9 B/min, Pain=0, Denisse=10, Heart=2 After removing the current catheter a JL 4.0 INFINITI CATHETER FR 5 was advanced over a WIRE, 3 MMJ .035 180CM 18:26:40 180CM. 18:27:52 The LCA was injected and visualized at various angles. OMNIPAQUE, 350 MG, 150ML 150ML used . After removing the current catheter a MPA-2 INFINITI CATHETER FR 5 was advanced over a WIRE, 3M MJ .035 180CM 18:29:54 180CM. 18:32:15 HR=62 bpm, HRAG=181/89 mmhg, SpO2=95.0 %, Resp=20 B/min, Pain=0, Denisse=10, Heart=2 18:32:15 The SVG-PDA was injected and visualized at various angles. OMNIPAQUE, 350 MG, 150ML 150ML u sed. 18:36:42 HR=59 bpm, QPGQ=040/78 mmhg, SpO2=96.0 %, Resp=15 B/min, Pain=0, Denisse=10, Heart=2 18:40:30 Catheter was removed 18:41:41 HR=59 bpm, GWRP=666/83 mmhg, SpO2=96.0 %, Resp=20 B/min, Pain=0, Denisse=10, Heart=2 18:42:33 25 mcg FENTANYL given in lab by Hernandez Hopkins, PETER via Peripheral IV. 18:46:40 HR=59 bpm, OCEQ=229/86 mmhg, SpO2=95.0 %, Resp=20 B/min, Pain=0, Denisse=10, Heart=2 18:47:47 Case End Assessment: Final Case, HR=58 BPM, RBUQ=233/86 mmhg, Chest Pain=0, Edema=None, Color=Normal, Sk in = Warm, Dry Right Pulses: Wang Ped=2, Femoral=2, Radial=2 18:49:14 Left Pulses: Wang Ped=2, Femoral=2, Radial=2 Neurological: State=Alert, Ox3, LAINEZ Respiration: Resp=20 B/min, SpO2=96 % 18:51:43 HR=55 bpm, DZCJ=449/89 mmhg, SpO2=97.0 %, Resp=18 B/min, Pain=0, Denisse=10, Heart=2 Radial Compression Device Used. 14 mLs of air placed in BAND, RADIAL COMPRESSION TR SHORT 24 2 4CM. Affected 18:54:10 hand 98 % O2 saturation. 18:54:34 No case complications noted. 18:54:38 Cine recording checked. 18:56:44 HR=59 bpm, SPLG=300/88 mmhg, SpO2=99.0 %, Resp=14 B/min, Pain=0, Denisse=10, Heart=2 18:56:49 Vitals capture stopped. 18:56:51 A Left Heart Cath was performed. 18:56:55 [facility] Study - Contrast Media Used In Study Contrast Total Opened (mL) Total Used (mL) Total Wasted (mL) Omnipaque 150 50 100 End Study - Maximum Contrast Load Max Contrast Load (mL) 564.3 End Study - Radiation Exposure Fluoro Time (minutes) 10.0 End Study - Patient Disposition Complications Transferred To Interventional Outcome No Telemetry Bed successful
--- NOTE | 2017-04-22 19:53 | MA ---
cc: ALICECIRILO Morel DATE 04/22/2017 DATE OF 1945 PROCEDURES PERFORMED 1. Left heart catheterization. 2. Selective right and left coronary angiography. 3. Selective WHATLEY and saphenous vein graft angiography. INDICATION Vjj-XO-cxfqewgah AL, recent bypass surgery x4. APPROACH Left transradial. DESCRIPTION OF PROCEDURE Consent signed. The patient was brought into the cardiac lab[facility] in fasting state. The left wrist was prepped and draped in sterile fashion. Using 1% lidocaine for local anesthesia and a micropuncture kit a 6-Korean sheath was inserted into the left radial artery. Antispasmodic cocktail given. Then selective right and left coronary angiography was performed with a JL-4 and a JR -4 diagnostic catheter. This was followed by angiography to the saphenous vein graft and the WHATLEY. The saphenous vein graft angiography was done with multipurpose catheter and the WHATLEY angiography was done with a JR-4 diagnostic catheters. Angiography was taken in multiple views. All of the catheters were exchanged over a wire. The patient tolerated the procedure well without complications. Estimated blood loss less than 30 mL. Total contrast 50 mL. The left radial access site was closed with a TR band. ANGIOGRAPHY 1. Right coronary artery. The right coronary artery is a dominant vessel. It has a proximal 99% eccentric blockage unchanged from previous cath. 2. The left main is patent. It is giving off the LAD and the left circumflex artery. 3. The LAD has a proximal 99% lesion unchanged from previous cath and is 100% occluded right after the takeoff of the first diagonal and there appears to be stent on this segment. The first diagonal is small and patent. 4. The left circumflex artery has minimal luminal irregularities but no significant obstructive lesions. It is giving off two OM vessels both of which have competitive flow. The OM2 is 100% occluded and the first OM vessel has 70% lesion proximally and NINI III flow. Grafts: - WHATLEY to the LAD is patent with NINI III flow. It anastomosed to the LAD, in the mid segment of the LAD which is feeding distally. The LAD after the anastomosis has and 80% lesion and is filling the proximal portion of the LAD. - The SVG to the right coronary artery is widely patent. - The SVG to OM2 it is widely patent. - The SVG to OM1 is 100% occluded. CONCLUSION - Severe [place] vessel coronary artery disease - 3/4 grafts patent. RECOMMENDATIONS The patient will go back to CVICU for post cath care and medication will be optimized with aspirin, Plavix, beta-blockers, LIDIA inhibitor, statin and long- acting nitrates. Case discussed with Dr. Garcia MD DARCI Trevino/SANDY /6:59 PM /7:27 PM MTDD
--- NOTE | 2017-04-22 21:45 | EKG ---
Date Performed: 04/21/2017 Time Performed: 16:19:14 PTAGE: 71 years EKG: SINUS BRADYCARDIA NONSPECIFIC T-WAVE ABNORMALITY PROLONGED QT INTERVAL SINCE PREVIOUS HARMAN NG 04/21/2017,QT INTERVAL LONGER, ST T CHANGES HAVE IMPROVED. ABNORMAL ECG PREVIOUS TRACING : 04/21/2017 08.07 DOCTOR: Patrick Portillo Interpretating Date/Time 04/22/2017 21:44:28
--- NOTE | 2017-04-22 21:45 | EKG ---
Date Performed: 04/21/2017 Time Performed: 20:41:17 PTAGE: 71 years EKG: Sinus rhythm NONSPECIFIC T-WAVE ABNORMALITY BORDERLINE ECG PREVIOUS TRACING : 04/21/2017 16.19 Compared to prior tracing no significant change DOCTOR: Patrick Portillo Interpretating Date/Time 04/22/2017 21:44:57
[2017-04-22] MEDS: DULoxetine HCl DR 60 MG CAP PO SCH (21:59)
[2017-04-22] MEDS: ALPRAZolam 0.25 MG TAB PO PRN (22:00)
[2017-04-23] VITALS (23 sets, daily range): BP systolic 94–119; BP diastolic 63–76; PULSE 47–84; RESP 18–24; TEMP 97.7–97.9; O2SAT 94–95
[2017-04-23] MEDS: LEVOTHYROXINE SODIUM 50 MCG TAB PO SCH (06:02)
[2017-04-23] MEDS ORDERED: ISOSORBIDE MONONITRATE 30 MG TAB PO ONE (08:30)
--- NOTE | 2017-04-23 08:31 | HHI.PR ---
Subjective Remarks some pain in back similar to angina sx's she is eager for d/c home. Objective Vitals heart reg lung cta abd s/nt ext left leg incisions. no bleeding. no cellulitis eccymosis of thighs Vital Signs Date Time Temp Pulse Resp B/P (MAP) Pulse Ox O2 Delivery O2 Flow Rate FiO2 04/23/17 06:00 52 04/23/17 05:00 50 04/23/17 04:00 48 04/23/17 03:00 47 18 111/63 (79) 95 04/23/17 03:00 47 04/23/17 02:00 50 04/23/17 01:00 50 04/23/17 00:00 52 04/22/17 23:00 56 04/22/17 23:00 97.4 62 18 133/80 (97) 97 04/22/17 22:00 60 04/22/17 21:00 58 04/22/17 20:00 60 04/22/17 19:15 97.5 57 18 149/95 (113) 96 04/22/17 15:00 98.4 61 16 168/94 (118) 96 04/22/17 11:30 98.1 55 18 140/77 (98) 93 04/22/17 11:00 53 04/22/17 10:26 94 Result Diagram: 04/22/1743504/22/17435 A/P Problem List: (1) NSTEMI (non-ST elevated myocardial infarction) ICD Codes: I21.4 - Non-ST elevation (NSTEMI) myocardial infarction Status: Acute Plan: 1. cad. cabg x 4 04/14 cad with prior 1 lad, 2 rca stents discharged on 04/19 had alot of post op hypotension problems and was on stress dose steroids..still tapering. also left leg graft site oozing presenting now with cp and nstemi ...LHC 04/23....3/4 grafts patent. OM1 svg occluded stop heparin when ok with cardiology asa/plavix bb as tolerated add imdur bp/pulse not tolerating higher doses wean off steroid that was started on her last admission. ambulate d/c home when ok with cardiology...pt very eager for d/c she is very anxious. I have explained her condition to the best of my knowledge. She has numerous complaints about her care at [facility] from the last admission to now. ADDENDUM: PT UNABLE TO TOLERATE IMDUR. DIZZINESS. SEEN BY CTS AND CARDIOLOGY BOTH WHO CLEARED HER FOR D/C TODAY. CTS HAD THE PT ON STEROIDS FROM LAST ADMISSION THEN D/C AND THEY HAVE INFORMED TO PT TO STOP THEM NOW. I WILL DEFER TO THE CTS ANY DECISIONS ON THE STEROIDS. (2) S/P CABG x 4 ICD Codes: Z95.1 - Presence of aortocoronary bypass graft Status: Acute (3) Parkinsons ICD Codes: G20 - Parkinson's disease Status: Chronic (4) Hypothyroidism ICD Codes: E03.9 - Hypothyroidism Status: Chronic (5) Hypertension ICD Codes: I10 - Hypertension Status: Chronic Patrick Rodriguez MD Apr 23, 2017 08:31
[2017-04-23] MEDS: DOCUSATE SODIUM 50 MG/SENNA 8.6 MG TAB PO SCH (08:41)
[2017-04-23] MEDS: SODIUM CHLORIDE 0.9% FLUSH 10 ML FLUSH IV FLUSH SCH (08:41)
[2017-04-23] MEDS: FERROUS SULFATE 325 MG (65 MG ELEMENTAL IRON) TAB PO SCH ×2 (08:41→17:01)
[2017-04-23] MEDS: CLOPIDOGREL 75 MG TAB PO SCH (08:41)
[2017-04-23] MEDS: ASPIRIN EC 81 MG TABEC PO SCH (08:41)
[2017-04-23] MEDS: amLODIPine BESYLATE 5 MG TAB PO SCH (08:42)
[2017-04-23] MEDS: CARBIDOPA/LEVODOPA 25 MG/100 MG TAB PO SCH ×4 (08:43→17:01)
[2017-04-23] MEDS: METOPROLOL TARTRATE 25 MG TAB PO SCH (08:43)
[2017-04-23] MEDS ORDERED: predniSONE 10 MG TAB PO SCH (09:00)
--- NOTE | 2017-04-23 13:42 | PD.CAR.PN ---
CVT Progress Note Subjective/Hospital Course: 71 yo with CAD s/p cabg x 4 on 04/14, discharged 04/20. Initially presented with unstable angina. she was active and played alot of tennis. LHC revealed MV dz, hx of CAD with 3 prior coronary stents. postop course included hypotension requiring pressors, limited echo 04/16 EF 60%. low cortisol level , placed on stress dose steroids, dc on taper dose po steroids, presented to ED this past Sat with oozing from her left lower BRIANNA site, dc home , returned Friday night with chest pain and elevated troponins , concern for NSTEMI, pt has been seen and eval by Dr Baker and plan for possible re-cath today , pt was placed on plavix yesterday , continues on BB , ASA, intolerant to statins. Heparin gtt EF 60% PMH: CAD HLP, HTN, Osteoarthritis, Osteoporosis , questionable Parkinson's on Sinemet ( follows with Dr Covarrubias) , hypothyroidism 04/22 waiting on eval for cath today currently pain free 04/23 s/p heart cath 04/22 3/4 grafts open , SVG to OM occluded pt started on Imdur, remains on ASA and plavix intolerant to statins Objective: GENERAL: SKIN: Warm and dry. sternal incision intact and well approximated, left leg with ecchymosis left upper thigh to ankle area, EVH site intact, BRIANNA drain site healing well HEAD: Normocephalic. EYES: No scleral icterus. No injection or drainage. NECK: Supple, trachea midline. No JVD or lymphadenopathy. CARDIOVASCULAR: Regular rate and rhythm without murmurs, gallops, or rubs. RESPIRATORY: Breath sounds equal bilaterally. No accessory muscle use. GASTROINTESTINAL: Abdomen soft, non-tender, nondistended. MUSCULOSKELETAL: No cyanosis, or edema. BACK: Nontender without obvious deformity. No CVA tenderness. Vital Signs Date Time Temp Pulse Resp B/P (MAP) Pulse Ox O2 Delivery O2 Flow Rate FiO2 04/23/17 13:02 65 04/23/17 12:08 57 04/23/17 11:44 94 04/23/17 11:02 97.7 55 24 94/63 (73) 94 04/23/17 11:01 53 04/23/17 11:00 56 04/23/17 10:00 55 04/23/17 09:52 52 04/23/17 09:12 97.8 52 24 119/76 (90) 95 04/23/17 09:00 52 04/23/17 08:00 52 04/23/17 07:00 51 04/23/17 06:00 52 04/23/17 05:00 50 04/23/17 04:00 48 04/23/17 03:00 47 18 111/63 (79) 95 04/23/17 03:00 47 04/23/17 02:00 50 04/23/17 01:00 50 04/23/17 00:00 52 04/22/17 23:00 56 04/22/17 23:00 97.4 62 18 133/80 (97) 97 04/22/17 22:00 60 04/22/17 21:00 58 04/22/17 20:00 60 04/22/17 19:15 97.5 57 18 149/95 (113) 96 04/22/17 15:00 98.4 61 16 168/94 (118) 96 Result Diagram: 04/22/176 04/22/17435 Telemetry: sinus mendel (1) NSTEMI (non-ST elevated myocardial infarction) Plan: s/p Heart cath 3/4 grafts patent , SVG to OM occluded medical management stable for dc when cleared by cardiology (2) Hypertension Plan: on Norvasc and BB (3) Coronary arteriosclerosis (4) Anemia (5) S/P CABG x 4 Plan: ASA, plavix BB, intolerant to statins Rebecca House Apr 23, 2017 13:42
--- NOTE | 2017-04-23 13:57 | HHI.FF ---
Face to Face Verification Diagnosis: (1) NSTEMI (non-ST elevated myocardial infarction) (2) Anemia (3) S/P CABG x 4 Home Health Nursing Order: Medication education-adverse effect Wound care and dressing changes Nursing assessment with vital signs Instructions: Incentive spirometry Q1 hr x 10, while awake, also use acapella device hourly whole awake Sternal Breast Bone Precautions: NO pushing or pulling, ( pt must use sternal pillow to support chest with all activities and with coughing ( takes up to 3 months breast bone to heal ) All females to wear sternal bra , launder as needed Daily incision care: ok to shower daily, no tub bath. Wash all incisions with liquid dial soap, clean wash cloth to each site, rinse and pat dry. Observe for any signs of infection, such as drainage which is dark yellow, nagel, green or foul smelling. Immediately report to the surgeon any drainage from the chest incision, or legs, and for any abnormal drainage from the chest tube sites. Notify surgeon if any temp >101.5 degrees F. When specialty dressing removed/ or if you do not have one, continue to shower daily as above, then rinse and pat incision dry and paint with betadine daily x 5 days. Allow steri strips to fall off if you have any. Avoid lotions, creams, salves, oils, etc. for the first month F/U appointment: as per [facility] instructions: PCP in 2 weeks, CV surgeon 1 weeks, Claims Configuration Analyst 3-4 weeks For any questions regarding incisions/ dressing / meds / post op care or above Symptoms, Friday 8am-5pm Heart & Vascular Surgery Office ( Dr. Merchant & Dr. Garcia), After Hours / Nights (5pm -8am) Weekends and Holidays Please call [facility] Cardiac [facility] Unit ([facility]) Charge Nurse I have seen patient Analy Barton on 04/23/17. My clinical findings support the need for the requested home health care services because: Patient has SOB Deconditioned w/ increased weakness I certify that my clinical findings support that this patient is homebound because: Post-op weakness Rebecca House Apr 23, 2017 13:57
[2017-04-23] MEDS ORDERED: PLAV75TA29 PO (16:17)
[2017-04-23] MEDS ORDERED: OXYC1TAB63 PO (16:22)
--- NOTE | 2017-04-23 16:30 | PD.CARD.PN ---
Subjective Subjective Remarks no CV complaints overnight events noted. Dizziness after taking Imdur Denies chest pain Ambulating without difficulty Objective Medications Current Medications Medications (Trade) Dose Ordered Sig/Andrew Route Start Time Stop Time Status Last Admin (Heparin Inj) 5,000 units UNSCH PRN IV PUSH 04/21/17 22:15 (Heparin Inj) 2,500 units UNSCH PRN IV PUSH 04/21/17 22:15 04/21/17 23:57 Heparin Sodium/ Dextrose 250 ml @ 9.12 mls/hr TITRATE PRN IV 04/21/17 16:15 04/21/17 16:26 (NS Flush) 2 ml UNSCH PRN IV FLUSH 04/21/17 17:00 (NS Flush) 2 ml BID IV FLUSH 04/21/17 21:00 04/23/17 08:41 (Tylenol) 650 mg Q4H PRN PO 04/21/17 17:00 04/23/17 13:15 (Zofran Inj) 4 mg Q6H PRN IVP 04/21/17 17:00 (Narcan Inj) 0.4 mg UNSCH PRN IV PUSH 04/21/17 17:00 ([place]-Colace) 1 tab BID PO 04/21/17 21:00 04/23/17 08:41 (Milk Of Magnesia Liq) 30 ml Q12H PRN PO 04/21/17 17:00 (Senokot) 17.2 mg Q12H PRN PO 04/21/17 17:00 (Dulcolax Supp) 10 mg DAILY PRN RECTAL 04/21/17 17:00 ([place] 7.5-325 Mg) 1 tab Q6H PRN PO 04/21/17 17:00 04/22/17 22:00 (Xanax) 0.25 mg DAILY PRN PO 04/21/17 17:00 04/22/17 22:00 (Norvasc) 2.5 mg DAILY PO 04/22/17 09:00 04/23/17 08:42 (Ecotrin Ec) 81 mg DAILY PO 04/22/17 09:00 04/23/17 08:41 (Sinemet 25-100 Mg) 1 tab TID PO 04/21/17 18:00 04/23/17 12:37 (Cymbalta Dr) 60 mg HS PO 04/21/17 21:00 04/22/17 21:59 (Ferrous Sulfate) 325 mg BIDPC PO 04/21/17 18:00 04/23/17 08:41 (Synthroid) 50 mcg DAILY@0600 PO 04/22/17 06:00 04/23/17 06:02 (Lopressor) 12.5 mg Q12HR PO 04/21/17 21:00 04/22/17 21:59 (Pill Splitter) 1 ea UNSCH PRN OTHER 04/21/17 17:30 (Plavix) 75 mg DAILY PO 04/21/17 17:45 04/23/17 08:41 (Sinemet 25-100 Mg) 1 tab Q12HR PO 04/22/17 09:00 04/22/17 22:02 (Dilaudid Pf Inj) 0.5 mg Q4H PRN IV PUSH 04/22/17 12:00 Vital Signs / I&O Vital Signs Date Time Temp Pulse Resp B/P (MAP) Pulse Ox O2 Delivery O2 Flow Rate FiO2 04/23/17 16:03 84 04/23/17 15:17 62 04/23/17 15:15 97.9 64 18 109/67 (81) 94 04/23/17 14:00 61 04/23/17 13:02 65 04/23/17 12:08 57 04/23/17 11:44 94 04/23/17 11:02 97.7 55 24 94/63 (73) 94 04/23/17 11:01 53 04/23/17 11:00 56 04/23/17 10:00 55 04/23/17 09:52 52 04/23/17 09:12 97.8 52 24 119/76 (90) 95 04/23/17 09:00 52 04/23/17 08:00 52 04/23/17 07:00 51 04/23/17 06:00 52 04/23/17 05:00 50 04/23/17 04:00 48 04/23/17 03:00 47 18 111/63 (79) 95 04/23/17 03:00 47 04/23/17 02:00 50 04/23/17 01:00 50 04/23/17 00:00 52 04/22/17 23:00 56 04/22/17 23:00 97.4 62 18 133/80 (97) 97 04/22/17 22:00 60 04/22/17 21:00 58 04/22/17 20:00 60 04/22/17 19:15 97.5 57 18 149/95 (113) 96 I/O 04/22/17 04/22/17 04/22/17 04/23/17 04/23/17 04/23/17 07:00 15:00 23:00 07:00 15:00 23:00 Intake Total 480 ml 240 ml Output Total 600 ml Balance -120 ml 240 ml Intake Oral 480 ml 240 ml Output Urine Total 600 ml # Voids 1 2 Physical Exam GENERAL: Well-nourished, well-developed patient. SKIN: Warm and dry. HEAD: Normocephalic. EYES: No scleral icterus. No injection or drainage. NECK: Supple, trachea midline. No JVD or lymphadenopathy. CARDIOVASCULAR: Regular rate and rhythm without murmurs, gallops, or rubs. RESPIRATORY: Breath sounds equal bilaterally. No accessory muscle use. GASTROINTESTINAL: Abdomen soft, non-tender, nondistended. EXTREMITIES: No cyanosis, or edema. NEUROLOGICAL: Awake, alert, and oriented x 3. Non-focal. Imaging Last Impressions Chest X-Ray 04/21/17799 Signed Impressions: Service Date/Time: Friday, April 21, 2017 08:12 - CONCLUSION: 1. There are small areas of consolidation in the lung bases. This is new compared to previous of 04/19/17. An underlying pneumonia cannot be excluded. Andrea Luna MD Aorta CTA 04/21/17 08 Signed Impressions: Service Date/Time: Friday, April 21, 2017 09:15 - CONCLUSION: 1. No aneurysm or dissection. 2. Small bilateral pleural effusions with associated passive atelectasis. 3. Prior cholecystectomy. 4. Colonic diverticulosis. Aniceto Rivera Jr., MD Assessment and Plan Problem List: (1) NSTEMI (non-ST elevated myocardial infarction) ICD Codes: I21.4 - Non-ST elevation (NSTEMI) myocardial infarction Status: Acute Plan: Continue aggressive medical management for CAD Cont Lopressor, Plavix, ASA and statin Stable to be d/c home today F/U with Dr. Ivey and Dr. Garcia (2) Hypertension ICD Codes: I10 - Hypertension Status: Chronic (3) Coronary arteriosclerosis ICD Codes: I25.10 - Coronary arteriosclerosis Status: Acute (4) Anemia ICD Codes: D64.9 - Anemia Status: Acute (5) S/P CABG x 4 ICD Codes: Z95.1 - Presence of aortocoronary bypass graft Status: Acute John Rolle MD Apr 23, 2017 16:30
== END 2017-04-23 17:16 | disposition home health service (06) | DRG 282 ==
LOC: NEPE 07:48 → NEDA 16:23 → HCPC 21:19 → HCIN 04-22 15:46
PROVIDERS: ADMIT Hospitalist; ATTEND Hospitalist
PROC: B2111ZZ Fluoroscopy of Multiple Coronary Arteries using Low Osmolar Contrast (ICD-10-PCS; 2017-04-22)
PROC: B2181ZZ Fluoroscopy of Left Internal Mammary Bypass Graft using Low Osmolar Contrast (ICD-10-PCS; 2017-04-22)
PROC: B2121ZZ Fluoroscopy of Single Coronary Artery Bypass Graft using Low Osmolar Contrast (ICD-10-PCS; 2017-04-22)
PROC: 4A023N7 Measurement of Cardiac Sampling and Pressure, Left Heart, Percutaneous Approach (ICD-10-PCS; principal; 2017-04-22 15:00)
DX: T82.867A Thrombosis due to cardiac prosthetic devices, implants and grafts, initial encounter (principal); I21.4 Non-ST elevation (NSTEMI) myocardial infarction; G20 Parkinson's disease; E03.9 Hypothyroidism, unspecified; Z96.642 Presence of left artificial hip joint; I10 Essential (primary) hypertension; K21.9 Gastro-esophageal reflux disease without esophagitis; M19.90 Unspecified osteoarthritis, unspecified site; I25.10 Atherosclerotic heart disease of native coronary artery without angina pectoris; F41.9 Anxiety disorder, unspecified; F32.9 Major depressive disorder, single episode, unspecified; E78.5 Hyperlipidemia, unspecified; D64.9 Anemia, unspecified; M81.0 Age-related osteoporosis without current pathological fracture; Z82.49 Family history of ischemic heart disease and other diseases of the circulatory system; Z85.828 Personal history of other malignant neoplasm of skin; Z87.891 Personal history of nicotine dependence; Z79.82 Long term (current) use of aspirin; Z23 Encounter for immunization; Z86.73 Personal history of transient ischemic attack (TIA), and cerebral infarction without residual deficits; Z95.5 Presence of coronary angioplasty implant and graft
CPT/HCPCS: 71010; 71275; 74174; 80053; 82550; 84484; 85007; 85027; 85610; 85730; 93005; 93454; 94150; 96374; 96375; C1769; C1893; J1170; J1644; J2250; J2270; J2405; J3010; J7040; J7512; Q9967

== ENCOUNTER 2017-05-20 14:20 | Emergency (ER) | payer MEDICARE ==
[~2017-05-20] VITALS: Ht 170.2 cm; Wt 75.5 kg
[~2017-05-20 14:20] MED LIST changes: -ASPI-110 PO; +ASPI1TAB57 PO; +FERR325T18 PO; -FERR325T8 PO; -MEDR4PAK PO; +PLAV75TA29 PO; -POLY17S PO
[2017-05-20 14:23] VITALS: BP 128/81; PULSE 90; RESP 16; TEMP 97.7; O2SAT 97
[2017-05-20] MEDS ORDERED: CIPR-9 PO (14:41)
[2017-05-20] MEDS ORDERED: POTA-163 PO (14:41)
[2017-05-20] MEDS ORDERED: FURO1TAB60 PO (14:41)
[2017-05-20] MEDS ORDERED: DOXY100C PO (14:41)
[2017-05-20] MEDS ORDERED: SODIUM CHLORIDE 0.9% FLUSH 10 ML FLUSH IV FLUSH PRN (14:45)
--- NOTE | 2017-05-20 14:57 | PD ---
HPI Chief Complaint: Skin Problem Time Seen by Provider: 14:34 Travel History International Travel<30 days: No Contact w/Intl Traveler<30days: No Traveled to known affect area: No History of Present Illness HPI Patient is a 71-year-old female who presents to emergency room for evaluation of left leg pain and swelling. Patient reports that over the past 6 weeks, she has had a quadruple bypass surgery by Dr. Aguirre at [facility]. Patient reports that her surgery was complicated as she developed left leg ulcerations and subsequently developed cellulitis which grew out pseudomonas as well as staph. Patient reports that she currently is on day 14 of 16 of taking ciprofloxacin as well as doxycycline. Patient reports that the ulcerations and cellulitis has improved, she has noticed increased pain and swelling to veins in her leg. Patient reports that she currently is on Plavix as a antiplatelet therapy status post quadruple bypass surgery, she is not currently on any anticoagulants. Patient denies any fever or chills, reports that she has been compliant with wound care as well as home nursing for her left leg wounds. Patient denies any chest pain or shortness of breath, patient is concerned for increased swelling and pains to her left leg. 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 Ivey Cardiovascular surgeon is [facility] Past Medical History Hx Anticoagulant Therapy: Yes Arthritis: No Anxiety: Yes Depression: Yes Heart Rhythm Problems: No Cancer: Yes (skin) Cardiac Catheterization: Yes Cardiovascular Problems: Yes High Cholesterol: Yes Chest Pain: Yes Congestive Heart Failure: No Cerebrovascular Accident: Yes (TIA) Coronary Artery Disease: Yes (STENTS) Diminished Hearing: No Endocrine: No Gastrointestinal Disorders: Yes (HX ESOPHAGUS SPASMS) GERD: Yes Genitourinary: No Headaches: Yes Hepatitis: No Hiatal Hernia: No Hypertension: Yes Immune Disorder: No Musculoskeletal: Yes (ARTHRITIS, PARKINSONS) Neurologic: Yes (POSS TIA) Parkinson's Disease: Yes Psychiatric: No Reproductive: No Respiratory: No Migraines: No Seizures: No Thyroid Disease: Yes (HYPO) Ulcer: No Influenza Vaccination: No ?: Not Menopausal: Yes Tubal Ligation: Yes Past Surgical History Abdominal Surgery: Yes (SANDY 2002) AICD: No Body Medical Devices: 3 CARDIAC STENTS, Cardiac Surgery: Yes (3 STENT PLACEMENT 04/01/07 ) Cholecystectomy: Yes (WITH ERCP AFTER) Coronary Artery Bypass Graft: Yes Coronary Stent: Yes (ANGIOPLASTY WITH 3 STENTS) Ear Surgery: No Endocrine Surgery: No Eye Surgery: No Genitourinary Surgery: Yes (TUBAL LIGATION) Gynecologic Surgery: No Joint Replacement: Yes (left hip) Neurologic Surgery: No Oral Surgery: No Pacemaker: No Thoracic Surgery: No Tonsillectomy: Yes Other Surgery: Yes Social History Alcohol Use: Yes (1-2 GLASSES OF WINE A NIGHT WITH DINNER) Tobacco Use: No (quit 45 yrs ago smoked 2 ppd cigs) Substance Use: No Allergies-Medications (Allergen,Severity, Reaction): Coded Allergies: meperidine (Verified Adverse Reaction, Severe, VOMITING, 05/20/17) codeine (Verified Adverse Reaction, Intermediate, Vomiting, 05/20/17) Uncoded Allergies: statin (Adverse Reaction, Intermediate, myopathy, 04/21/17) myyopathy Reported Meds & Prescriptions Reported Meds & Active Scripts Active Oxycodone-Acetaminophen 5-325 mg Tab 1 Tab PO Q4HR PRN Plavix (Clopidogrel Bisulfate) 75 Mg Tab 75 Mg PO DAILY Ferrous Sulfate 325 Mg (65 Mg Iron) Tablet 325 Mg PO BIDPC Thera M Plus (Multivitamins/Minerals Therapeutic) 1 Tab 1 Tab PO DAILY Synthroid (Levothyroxine Sodium) 50 Mcg Tab 50 Mcg PO DAILY@0600 Dok (Docusate Sodium) 100 Mg Cap 100 Mg PO BID Carbidopa-Levodopa 25-100 Mg Tab 1 Tab PO TID Metoprolol Tartrate 25 Mg Tab 12.5 Mg PO Q12HR Reported Potassium Chloride ER (Potassium Chloride) 20 Meq Tab 20 Meq PO DAILY Lasix (Furosemide) 40 Mg Tab 40 Mg PO DAILY Doxycycline Hyclate 100 Mg Cap 100 Mg PO BID Cipro (Ciprofloxacin HCl) 500 Mg Tab 500 Mg PO BID Amlodipine (Amlodipine Besylate) 2.5 Mg Tab 2.5 Mg PO DAILY Alprazolam 0.25 Mg Tab 0.25 Mg PO DAILY PRN Cymbalta DR (Duloxetine HCl) 60 Mg Capdr 60 Mg PO HS Aspirin 81 (Aspirin) 81 Mg Tabdr 81 Mg PO DAILY Fosamax (Alendronate Sodium) 70 Mg Tab 70 Mg PO Q7D Review of Systems General / Constitutional: No: Fever, Chills Eyes: No: Visual changes HENT: No: Headaches Cardiovascular: No: Chest Pain or Discomfort, Palpitations, Irregular Rhythm, Tachycardia, Diaphoresis Respiratory: No: Shortness of Breath Gastrointestinal: No: Abdominal Pain Genitourinary: No: Dysuria Musculoskeletal: Positive: Cramping, Edema, Pain Skin: No Rash Neurologic: No: Weakness Psychiatric: No: Depression Endocrine: No: Polydipsia Hematologic/Lymphatic: No: Easy Bruising Physical Exam Narrative GENERAL: No acute distress, nontoxic SKIN: Focused skin assessment warm/dry. Patient with healing wounds to her left lower extremity HEAD: Atraumatic. Normocephalic. EYES: Pupils equal and round. No scleral icterus. No injection or drainage. ENT: No nasal bleeding or discharge. Mucous membranes pink and moist. NECK: Trachea midline. No JVD. CARDIOVASCULAR: Regular rate and rhythm. No murmur appreciated. RESPIRATORY: No accessory muscle use. Clear to auscultation. Breath sounds equal bilaterally. GASTROINTESTINAL: Abdomen soft, non-tender, nondistended. Hepatic and splenic margins not palpable. MUSCULOSKELETAL: No obvious deformities. No clubbing. No cyanosis. No edema. Patient with healing wounds to her left lower extremity, ulcerations are healing with no drainage or redness, there is no surrounding cellulitis to her left lower extremity, patient does have point tenderness dilated superficial veins, pulses intact, neurovascularly intact. Right lower extremity: Normal exam NEUROLOGICAL: Awake and alert. No obvious cranial nerve deficits. Motor grossly within normal limits. Normal speech. PSYCHIATRIC: Appropriate mood and affect; insight and judgment normal. Data Data Last Documented VS Vital Signs Date Time Temp Pulse Resp B/P (MAP) Pulse Ox O2 Delivery O2 Flow Rate FiO2 05/20/17 14:23 97.7 90 16 128/81 (97) 97 Orders Orders Basic Metabolic Panel (Bmp) (05/20/17 14:43) Complete Blood Count With Diff (05/20/17 14:43) Prothrombin Time / Inr (Pt) (05/20/17 14:43) Act Partial Throm Time (Ptt) (05/20/17 14:43) Iv Access Insert/Monitor (05/20/17 14:43) Sodium Chloride 0.9% Flush (Ns Flush) (05/20/17 14:45) Us Leg Venous Doppler (05/20/17 ) Ed Discharge Order (05/20/17 16:25) Labs Laboratory Tests Test 05/20/17 14:57 White Blood Count 5.9 TH/MM3 Red Blood Count 4.01 MIL/MM3 Hemoglobin 11.8 GM/DL Hematocrit 36.2 % Mean Corpuscular Volume 90.4 FL Mean Corpuscular Hemoglobin 29.3 PG Mean Corpuscular Hemoglobin Concent 32.4 % Red Cell Distribution Width 15.3 % Platelet Count 274 TH/MM3 Mean Platelet Volume 7.9 FL Neutrophils (%) (Auto) 57.4 % Lymphocytes (%) (Auto) 29.3 % Monocytes (%) (Auto) 10.4 % Eosinophils (%) (Auto) 2.6 % Basophils (%) (Auto) 0.3 % Neutrophils # (Auto) 3.4 TH/MM3 Lymphocytes # (Auto) 1.7 TH/MM3 Monocytes # (Auto) 0.6 TH/MM3 Eosinophils # (Auto) 0.2 TH/MM3 Basophils # (Auto) 0.0 TH/MM3 CBC Comment DIFF FINAL Differential Comment Prothrombin Time 11.6 SEC Prothromb Time International Ratio 1.0 RATIO Activated Partial Thromboplast Time 25.0 SEC Blood Urea Nitrogen 14 MG/DL Creatinine 0.86 MG/DL Random Glucose 104 MG/DL Calcium Level 9.0 MG/DL Sodium Level 140 MEQ/L Potassium Level 4.0 MEQ/L Chloride Level 107 MEQ/L Carbon Dioxide Level 24.3 MEQ/L Anion Gap 9 MEQ/L Estimat Glomerular Filtration Rate 65 ML/MIN MDM Medical Decision Making Medical Screen Exam Complete: Yes Emergency Medical Condition: Yes Medical Record Reviewed: Yes Interpretation(s) Vital Signs Date Time Temp Pulse Resp B/P (MAP) Pulse Ox O2 Delivery O2 Flow Rate FiO2 05/20/17 14:23 97.7 90 16 128/81 (97) 97 Differential Diagnosis Superficial venous thrombosis, DVT, cellulitis Narrative Course 71-year-old female who currently is taking ciprofloxacin as well as doxycycline on day 1416 of treatment presents to emergency room with complaints of swelling to the veins of her left extremity. Cellulitis is healing. Plan to obtain US of LLE to evaluate for DVT During the course of the patients emergency department visit, the patients history, examination, and differential diagnosis were reviewed with the patient. The patient was placed on a clinical research monitor with oximetry and frequent blood pressure monitoring. The patient had 20 gauge IV access obtained and blood work sent for analysis. The patients laboratory studies were reviewed and remarkable for: CBC & BMP Diagram 11/14/17 14:57 Calcium Level 9.0 Radiology studies were reviewed and remarkable for: Last Impressions Lower Extremity Ultrasound 05/20/17 0000 Signed Impressions: Service Date/Time: Saturday, May 20, 2017 14:54 - CONCLUSION: 1. No DVT. 2. Complex area in the medial aspect of the right knee corresponds to a reported area of prior vein harvesting and may represent a regional seroma/hematoma at or scar. If there is associated erythema or drainage, would consider early abscess. No drainable component at this time. Drew Carrillo MD I reviewed all labs and studies with patient in detail including all findings. Discussed need for repeat US in 1 week. Patient with healing infection cellulitis/ulcerations to [facility], she does not require admission to the hospital at this time. She will follow up with her pcp and will return to ER as needed. Diagnosis Primary Impression: Leg pain, left Patient Instructions: General Instructions Additional Instructions: Please provide patient with a copy of their lab work and studies at discharge* * Please follow up with your primary care doctor in 2-3 days Return to the ER if symptoms worsen or progress Return to the ER as needed Please have your ultrasound repeated one week if swelling persists Please take all antibiotics until completion Return to the ER if you develop any fever/chills/progressing symptoms Place warm compresses to area of pain and elevate your leg Disposition: 01 DISCHARGE HOME Condition: Stable Sabina Azul DO May 20, 2017 14:57
[2017-05-20 15:00] LABS: AUTOMATED NEUTROPHIL # 3.4 TH/MM3 (1.8-7.7); BASOPHIL % 0.3 % (0.0-2.0); EOSINOPHIL # 0.2 TH/MM3 (0-0.4); EOSINOPHIL % 2.6 % (0.0-4.0); HEMATOCRIT 36.2 % (35.0-46.0); HEMO FLAGS DIFF FINAL; LYMPH % 29.3 % (9.0-44.0); LYMPHOCYTE # 1.7 TH/MM3 (1.0-4.8); MEAN CELL VOLUME 90.4 FL (80.0-100.0); MEAN CORPUSCULAR HEMOGLOBIN 29.3 PG (27.0-34.0); MEAN CORPUSCULAR HGB CONC 32.4 % (32.0-36.0); MONO % 10.4 % (0.0-8.0); NEUT % 57.4 % (16.0-70.0); PLATELET COUNT 274 TH/MM3 (150-450); RED BLOOD COUNT 4.01 MIL/MM3 (4.00-5.30); RED CELL DISTRIBUTION WIDTH 15.3 % (11.6-17.2); WHITE BLOOD COUNT 5.9 TH/MM3 (4.0-11.0)
[2017-05-20 15:10] LABS: BICARBONATE 24.3 MEQ/L (21.0-32.0)
[2017-05-20 15:11] LABS: PROTHROMBIN TIME - PATIENT 11.6 SEC (9.8-11.6)
--- NOTE | 2017-05-20 15:42 | RADRPT ---
EXAM DATE/TIME: 05/20/2017 14:54 [place] COMPARISON: No previous studies available for comparison. INDICATIONS : Left leg swelling. MEDICAL HISTORY : Hypercholesterol. Anxiety. Depression. Hypertension. Hypothyroidism. Parkinson's. Headache. Chest pain. SURGICAL HISTORY : CABG Tonsillectomy. Angioplasty. Cholecystectomy. Cardiac stents. Tubal ligation. Left hip replac ement. ENCOUNTER: Subsequent ACUITY: 1 month PAIN SCORE: 3/10 LOCATION: Left leg. TECHNIQUE: Venous ultrasound of the leg was performed from the inguinal ligament to the proximal calf. Real-anup e, color Doppler and spectral tracing, compression and augmentation techniques were used. FINDINGS: There is normal compressibility of the deep venous system from the inguinal region to the proximal ca lf. No echogenic clot is seen in the lumen of the common femoral, femoral, popliteal, and posterior tibial veins. There is a normal response of the venous system to proximal and distal augmentation an d respiration. The medial aspect of the knee in the region of the palpable lump, there is a complex area measuring 4 .3 x 4.9 x 1.9 cm. This appears to be in the region of a prior vein harvesting and may represent a po stoperative seroma/hematoma. CONCLUSION: 1. No DVT. 2. Complex area in the medial aspect of the right knee corresponds to a reported area of prior vein h arvesting and may represent a regional seroma/hematoma at or scar. If there is associated erythema o r drainage, would consider early abscess. No drainable component at this time. Drew Carrillo MD on May 20, 2017 at 15:30 Board Certified Radiologist. This report was verified electronically.
== END 2017-05-20 16:44 | disposition home or self-care (01) ==
LOC: PHED 14:20
DX: M79.605 Pain in left leg (principal); G20 Parkinson's disease; I10 Essential (primary) hypertension; I25.10 Atherosclerotic heart disease of native coronary artery without angina pectoris; Z87.891 Personal history of nicotine dependence
CPT/HCPCS: 80048; 85025; 85610; 85730; 93971; 99284

== ENCOUNTER 2017-06-11 09:09 | Emergency (ER) | payer MEDICARE ==
[~2017-06-11] VITALS: Ht 170.2 cm; Wt 78.0 kg
[~2017-06-11 09:09] MED LIST changes: +CIPR-9 PO; +DOXY100C PO; +FURO1TAB60 PO; +POTA-163 PO
[2017-06-11 09:25] VITALS: BP 119/76; PULSE 80; RESP 18; TEMP 97.8; O2SAT 96
--- NOTE | 2017-06-11 09:45 | PD ---
HPI Chief Complaint: Pain: Acute or Chronic Time Seen by Provider: 09:13 Travel History International Travel<30 days: No Contact w/Intl Traveler<30days: No Traveled to known affect area: No History of Present Illness HPI This 71-year-old female is complaining of swelling of her left lower leg area she had a CABG done 4 weeks ago. She's developed some problems in her left leg which was the site of the pain graft. She has had some cellulitis which is scrubbed throat cultures positive for Pseudomonas and staph. She is currently on Cipro and doxycycline. She has had some swelling of the anterior leg. She is on Plavix and aspirin. She is not aware of fever or chills. She is having pain like PFSH Past Medical History Hx Anticoagulant Therapy: Yes Arthritis: No Anxiety: Yes Depression: Yes Heart Rhythm Problems: No Cancer: Yes (skin) Cardiac Catheterization: Yes Cardiovascular Problems: Yes High Cholesterol: Yes Chest Pain: Yes Congestive Heart Failure: No Cerebrovascular Accident: Yes (TIA) Coronary Artery Disease: Yes (STENTS) Diminished Hearing: No Endocrine: No Gastrointestinal Disorders: Yes (HX ESOPHAGUS SPASMS) GERD: Yes Genitourinary: No Headaches: Yes Hepatitis: No Hiatal Hernia: No Hypertension: Yes Immune Disorder: No Musculoskeletal: Yes (ARTHRITIS, PARKINSONS) Neurologic: Yes (POSS TIA) Parkinson's Disease: Yes Psychiatric: No Reproductive: No Respiratory: No Migraines: No Seizures: No Thyroid Disease: Yes (HYPO) Ulcer: No Menopausal: Yes Tubal Ligation: Yes Past Surgical History Abdominal Surgery: Yes (SANDY 2002) AICD: No Body Medical Devices: 3 CARDIAC STENTS, Cardiac Surgery: Yes (3 STENT PLACEMENT 04/01/07 ) Cholecystectomy: Yes (WITH ERCP AFTER) Coronary Artery Bypass Graft: Yes Coronary Stent: Yes (ANGIOPLASTY WITH 3 STENTS) Ear Surgery: No Endocrine Surgery: No Eye Surgery: No Genitourinary Surgery: Yes (TUBAL LIGATION) Gynecologic Surgery: No Joint Replacement: Yes (left hip) Neurologic Surgery: No Oral Surgery: No Pacemaker: No Thoracic Surgery: No Tonsillectomy: Yes Other Surgery: Yes Social History Alcohol Use: Yes (1-2 GLASSES OF WINE A NIGHT WITH DINNER) Tobacco Use: No (quit 45 yrs ago smoked 2 ppd cigs) Substance Use: No Allergies-Medications (Allergen,Severity, Reaction): Coded Allergies: meperidine (Verified Adverse Reaction, Severe, VOMITING, 05/20/17) codeine (Verified Adverse Reaction, Intermediate, Vomiting, 05/20/17) Uncoded Allergies: statin (Adverse Reaction, Intermediate, myopathy, 04/21/17) myyopathy Reported Meds & Prescriptions Reported Meds & Active Scripts Active Plavix (Clopidogrel Bisulfate) 75 Mg Tab 75 Mg PO DAILY Ferrous Sulfate 325 Mg (65 Mg Iron) Tablet 325 Mg PO BIDPC Thera M Plus (Multivitamins/Minerals Therapeutic) 1 Tab 1 Tab PO DAILY Synthroid (Levothyroxine Sodium) 50 Mcg Tab 50 Mcg PO DAILY@0600 Dok (Docusate Sodium) 100 Mg Cap 100 Mg PO BID Carbidopa-Levodopa 25-100 Mg Tab 1 Tab PO TID Metoprolol Tartrate 25 Mg Tab 12.5 Mg PO Q12HR Reported Potassium Chloride ER (Potassium Chloride) 20 Meq Tab 20 Meq PO DAILY Lasix (Furosemide) 40 Mg Tab 40 Mg PO DAILY Doxycycline Hyclate 100 Mg Cap 100 Mg PO BID Cipro (Ciprofloxacin HCl) 500 Mg Tab 500 Mg PO BID Amlodipine (Amlodipine Besylate) 2.5 Mg Tab 2.5 Mg PO DAILY Alprazolam 0.25 Mg Tab 0.25 Mg PO DAILY PRN Cymbalta DR (Duloxetine HCl) 60 Mg Capdr 60 Mg PO HS Aspirin 81 (Aspirin) 81 Mg Tabdr 81 Mg PO DAILY Fosamax (Alendronate Sodium) 70 Mg Tab 70 Mg PO Q7D Review of Systems General / Constitutional: No: Fever, Chills Cardiovascular: No: Chest Pain or Discomfort Gastrointestinal: No: Nausea Skin: Positive Lumps, No Rash Hematologic/Lymphatic: Positive: Easy Bruising Physical Exam Narrative GENERAL: Well-developed female SKIN: Focused skin assessment warm/dry. HEAD: Atraumatic. Normocephalic. EYES: Pupils equal and round. No scleral icterus. No injection or drainage. ENT: No nasal bleeding or discharge. Mucous membranes pink and moist. NECK: Trachea midline. No JVD. MUSCULOSKELETAL: No obvious deformities. No clubbing. No cyanosis. No edema. The morning the left lower leg there is an area of erythema. It is been marked with pen in the area of erythema is actually appears to be receiving a little bit area there is a small area of fluctuance with ecchymosis. NEUROLOGICAL: Awake and alert. No obvious cranial nerve deficits. Motor grossly within normal limits. Normal speech. PSYCHIATRIC: Appropriate mood and affect; insight and judgment normal. Data Data Orders Orders Wound Culture And Gram Stain (06/11/17 09:40) [facility] Medical Decision Making Medical Screen Exam Complete: Yes Emergency Medical Condition: Yes Medical Record Reviewed: Yes Differential Diagnosis Differential includes abscess, hematoma Narrative Course Within this area of fluctuance represented hematoma or abscess was not clear. There is ecchymosis at the site making me think it might be hematoma. I was reluctant to do an I&D as she is on Plavix. I inserted a needle and obtained but appears to be primarily old blood there is questionable small amount of purulence in the fluid. This appears to be primarily hematoma though there may be some component of abscess. A culture of the fluid will be sent Diagnosis Primary Impression: Hematoma of left lower extremity Additional Instructions: Keep leg elevated Disposition: 01 DISCHARGE HOME Condition: Stable Abel Carmen MD Jun 11, 2017 09:45
== END 2017-06-11 10:13 | disposition home or self-care (01) ==
LOC: PHED 09:09
DX: S80.12XA Contusion of left lower leg, initial encounter (principal); I10 Essential (primary) hypertension; G20 Parkinson's disease; X58.XXXA Exposure to other specified factors, initial encounter; Z79.01 Long term (current) use of anticoagulants
CPT/HCPCS: 10160; 87070; 87205

== ENCOUNTER → 2017-06-13 | Day surgery (SDC) | payer MEDICARE ==
[~2017-06-13] MED LIST changes: +ACETAMINOPHEN 1000 MG/100 ML 100 ML IV ONE; +BUPIVACAINE/EPINEPHRINE 0.25% PF 30 ML VIAL ONE; +MIDAZOLAM HCL 2 MG/2 ML VIAL ONE; +ONDANSETRON HCL 4 MG/2 ML VIAL IV PUSH ONE; -OXYC1TAB63 PO; +PROPOFOL 200 MG/20 ML AMP IV ONE; +ceFAZolin 2 GM PREMIX 50 ML ONE
--- NOTE | 2017-06-13 11:34 | TN ---
cc: HIGINIO BUSTAMANTE MD DATE OF SURGERY 06/13/2017 PREOPERATIVE DIAGNOSIS Left leg abscess. POSTOPERATIVE DIAGNOSIS Left leg abscess and necrotic tissue. PROCEDURE Incision and drainage left leg abscess, debridement skin and subcutaneous tissue. SURGEON Higinio Bustamante MD [employer] Staff ANESTHESIA General anesthesia SPECIMENS REMOVED Culture ESTIMATED BLOOD LOSS 5 cc OPERATIVE FINDINGS The patient had a fluctuant area with a large amount of pus present. An approximately one inch incision was created longitudinally. There was some necrotic skin and subcutaneous tissue on either side of the incision which was excised. PROCEDURE IN DETAIL The patient was taken to the operating room, placed in the supine position. Anesthesia was induced and the left lower extremity was prepped and draped in the usual sterile fashion. Surgical time-out was performed to verify correct patient, procedure and site. A longitudinal incision was made overlying the area of greatest fluctuance and where there was some necrotic tissue. A large amount of pus was expressed and a culture was taken. Ancef was then administered. All the purulent fluid was drained from the cavity and any loculations broken up bluntly. The cavity was copiously irrigated with a one-to-one mixture of hydrogen peroxide and saline. The cavity was packed with three inch Gordon gauze dampened with saline. An ABD pad was placed and the lower left extremity was wrapped from distal to proximal to the toes to above the wound with Gordon wrap and an Wilber bandage. The patient tolerated procedure well and was taken to PACU in stable condition. Higinio Bustamante MD JPZenon/DJL /10:57 AM /11:29 AM
== END | disposition home or self-care (01) ==
LOC: ESDC 08:44
PROVIDERS: ATTEND Surgery
DX: L02.416 Cutaneous abscess of left lower limb (principal); B96.89 Other specified bacterial agents as the cause of diseases classified elsewhere
CPT/HCPCS: 00400; 10061; 11042; 87070; 87205; J0131; J0690; J2250; J2405; J3010